=== PATIENT | male | born 1955 | race African-American/Black ===

== ENCOUNTER 2016-04-19 22:33 | Inpatient (IN) | payer OTHER ==
[~2016-04-19] VITALS: Ht 188 cm; Wt 77.1 kg
[~2016-04-19 22:33] MED LIST: ALLOPURINOL100 M1 ORAL; BACTRIM DS TAB1 EAC1 ORAL; BENAZEPRIL HCL10 MG ORAL; BENAZEPRIL HCL10 MG PO; BENAZEPRIL HCL40 MG ORAL; CATAPRES0.1 MG ORAL; CEPHALEXIN500 MG ORAL; CIPRO500 MG PO; CIPROFLOXACIN500 M2 ORAL; CIPROFLOXACIN750 MG ORAL; CLINDAMYCIN HC300 MG ORAL; CLOTRIMAZOLE15 GM TOPIC; COLACE250 MG ORAL; ECONAZOLE NITRA15 GM TOP; FLUCONAZOLE200 MG ORAL; GLIPIZIDE XL10 MG PO; GLIPIZIDE10 MG PO; GLIPIZIDE5 MG ORAL; GLUCOTROL10 MG PO; HUMALOG100 UNIT/4 SUBQ; HUMULIN N100 UNIT/1 SUBQ; HUMULIN R100 UNIT/1 SUBQ; IBUPROFEN600 MG ORAL; INDOCIN25 MG PO; KEFLEX500 MG ORAL; LANTUS SOL100 UNIT/1 SUBQ; LEVAQUIN500 MG ORAL; LEVEMIR FL100 UNIT/1 SUBQ; LOTENSIN10 MG PO; METHADONE HCL10 MG PO; MIRALAX17 G2 ORAL; MULTIVITAMINS1 EA13 ORAL; NORCO 10-325 T1 EACH PO; NORCO 5-325 TA1 EACH ORAL; NORCO 5-325 TA1 EACH PO; NOVOLIN N100 UNIT/1 SUBQ; PANTOPRAZOLE SO40 MG ORAL; TAMSULOSIN HCL0.4 MG ORAL; TYLENOL650 MG/20. ORAL; VALIUM10 MG PO; VICODIN 5-5001 EACH PO; ZOFRAN4 M1 ORAL
[2016-04-20] VITALS (7 sets, daily range): BP systolic 115–184; BP diastolic 70–106
[2016-04-20 00:31] LABS: BASOPHILS % (AUTO) 0.9 % (0.0-2.0); EOSINOPHILS % (AUTO) 1.8 % (0.0-3.0); MEAN CORPUSCULAR HEMOGLOBIN 25.1 PG (27.0-31.0); MEAN CORPUSCULAR HGB CONC 31.3 G/DL (32.0-36.0); MEAN CORPUSCULAR VOLUME 80 FL (80-99); MEAN PLATELET VOLUME 6.6 FL (6.5-10.1); MONOCYTES % (AUTO) 7.5 % (1.0-10.0); NEUTROPHILS % (AUTO) 61.8 % (45.0-75.0); PLATELET COUNT 289 K/UL (150-450); RED BLOOD COUNT 4.46 M/UL (4.70-6.10); RED CELL DISTRIBUTION WIDTH 15.4 % (11.6-14.8); WHITE BLOOD COUNT 8.2 K/UL (4.8-10.8)
[2016-04-20 00:32] LABS: APPEARANCE,URINE CLEAR; KETONES,URINE NEGATIVE (NEGATIVE); NITRITE,URINE NEGATIVE (NEGATIVE); PH,URINE 5 (4.5-8.0); PROTEIN,URINE 1+ (NEGATIVE); UROBILINOGEN,URINE NORMAL MG/DL (0.0-1.0)
[2016-04-20 00:45] LABS: ALANINE AMINOTRANSFERASE 34 U/L (3-41); ALBUMIN/GLOBULIN RATIO 0.5 (1.0-2.7); ANION GAP 11 (5-15); ASPARTATE AMINO TRANSFERASE 50 U/L (5-40); CALCIUM 9.1 mg/dL (8.6-10.2); CARBON DIOXIDE 30 mEQ/L (20-30); CHLORIDE 91 mEQ/L (98-107); CREATININE 1.1 mg/dL (0.7-1.2); GLOMERULAR FILTRATION RATE > 60 mL/min (>60); HEMOLYSIS 12; LIPASE 23 U/L (< 60); POTASSIUM 4.6 mEQ/L (3.4-4.9); SODIUM 132 mEQ/L (135-145); TOTAL PROTEIN 8.7 g/dL (6.6-8.7)
[2016-04-20 00:47] LABS: LEUKOCYTE ESTERASE ,URINE 2+ (NEGATIVE)
[2016-04-20 00:48] LABS: BACTERIA,URINE FEW /HPF; WBC,URINE 20-30 /HPF (0 - 0); YEAST,URINE FEW /HPF
[2016-04-20 00:49] LABS: INR 1.1 (0.9-1.1); PROTHROMBIN TIME 11.6 SEC (9.30-11.50)
[2016-04-20] MEDS ORDERED: cefTRIAXone 1 GM in NS 55 ML IVPB ONE (01:00)
[2016-04-20 01:06] LABS: TROPONIN I < 0.30 ng/mL (<=0.30)
--- NOTE | 2016-04-20 02:11 | Emergency Room Report ---
History of Present Illness General Chief Complaint: Generalized Weakness Source: Patient, Medical Record Present Illness HPI This is a 61-year-old male with a history COPD diabetes. He's been here multiple times for recurrent urinary tract infection and diabetes. Also has been to the surrounding hospital. He was brought in by bystander for being on the ground at the bus stop. He said that he went to eat and was on his way home when he fell. He claimed to be not homeless. Denies any fever or chills. Chest felt weak. No nausea no vomiting. Denies any chest pain. Nothing made it better nothing made it worse. Allergies: Coded Allergies: No Known Allergies (Unverified , 12/31/11) Patient History Past Medical History: see triage record, old chart reviewed, DM, HTN Past Surgical History: other Pertinent Family History: none Social History: Reports: smoking Immunizations: other Reviewed Nursing Documentation: PMH: Agreed, PSxH: Agreed Nursing Documentation-PMH Hx Cardiac Problems: Yes Hx Hypertension: Yes Hx Diabetes: Yes - neuropathy male urinary problems Hx Cancer: Yes Hx Gastrointestinal Problems: No Hx Neurological Problems: Yes Hx Numbness: Yes Hx Weakness: Yes Review of Systems Constitutional: Reports: malaise, weakness Eye: Denies: blurred vision, eye pain ENT: Denies: ear pain, nose congestion, throat swelling Respiratory: Denies: cough, shortness of breath Cardiovascular: Denies: chest pain, palpitations Gastrointestinal: Denies: abdominal pain, diarrhea, nausea, vomiting Musculoskeletal: Denies: back pain, joint pain Skin: Denies: rash Neurological: Denies: headache, numbness Endocrine: Denies: increased thirst, increased urine Hematologic/Lymphatic: Denies: easy bruising All Other Systems: negative except mentioned in HPI Physical Exam Vital Signs Date Time Temp Pulse Resp B/P Pulse Ox O2 Delivery O2 Flow Rate FiO2 04/19/16 23:17 98.4 95 18 164/90 100 Room Air vitals showed hypertension Sp02 EP Interpretation: reviewed, normal General Appearance: no apparent distress, alert, cachetic, Chronically Ill Head: normocephalic, atraumatic Eyes: bilateral eye EOMI, bilateral eye PERRL ENT: hearing grossly normal, normal pharynx Neck: full range of motion, supple, no meningismus Respiratory: chest non-tender, lungs clear, normal breath sounds Cardiovascular #1: regular rate, rhythm, no murmur Gastrointestinal: normal bowel sounds, non tender, no mass, no organomegaly, no bruit, non-distended Musculoskeletal: back normal, normal range of motion Neurologic: alert, oriented x3 Psychiatric: mood/affect normal Skin: warm/dry Medical Decision Making Diagnostic Impression: Primary Impression: FTT (failure to thrive) in adult Additional Impressions: Hyperglycemia due to type 2 diabetes mellitus Qualified Codes: E11.65 - Type 2 diabetes mellitus with hyperglycemia UTI (urinary tract infection) Qualified Codes: N30.00 - Acute cystitis without hematuria Proteinuria Hypertension Qualified Codes: I10 - Essential (primary) hypertension Anemia in chronic illness ER Course Patient presents with weakness and has UTI and uncontrolled diabetes. He looks much worse than the last time I saw him. He losing a lot of weight. Worse him for neoplastic process. He may need longterm placement since he can't take care of himself at home. No evidence of sepsis or DKA. No evidence of ACS. Laboratory Tests Test 04/20/16 00:04 04/20/16 00:21 White Blood Count 8.2 K/UL (4.8-10.8) Red Blood Count 4.46 M/UL (4.70-6.10) L Hemoglobin 11.2 G/DL (14.2-18.0) L Hematocrit 35.7 % (42.0-52.0) L Mean Corpuscular Volume 80 FL (80-99) Mean Corpuscular Hemoglobin 25.1 PG (27.0-31.0) L Mean Corpuscular Hemoglobin Concent 31.3 G/DL (32.0-36.0) L Red Cell Distribution Width 15.4 % (11.6-14.8) H Platelet Count 289 K/UL (150-450) Mean Platelet Volume 6.6 FL (6.5-10.1) Neutrophils (%) (Auto) 61.8 % (45.0-75.0) Lymphocytes (%) (Auto) 28.0 % (20.0-45.0) Monocytes (%) (Auto) 7.5 % (1.0-10.0) Eosinophils (%) (Auto) 1.8 % (0.0-3.0) Basophils (%) (Auto) 0.9 % (0.0-2.0) Prothrombin Time 11.6 SEC (9.30-11.50) H Prothromb Time International Ratio 1.1 (0.9-1.1) Activated Partial Thromboplast Time 26 SEC (23-33) Sodium Level 132 mEQ/L (135-145) L Potassium Level 4.6 mEQ/L (3.4-4.9) Chloride Level 91 mEQ/L (98-107) L Carbon Dioxide Level 30 mEQ/L (20-30) Anion Gap 11 (5-15) Blood Urea Nitrogen 13 mg/dL (7-23) Creatinine 1.1 mg/dL (0.7-1.2) Estimat Glomerular Filtration Rate > 60 mL/min (>60) Glucose Level 531 mg/dL (74-106) *H Calcium Level 9.1 mg/dL (8.6-10.2) Total Bilirubin 0.4 mg/dL (0.0-1.2) Aspartate Amino Transf (AST/SGOT) 50 U/L (5-40) H Alanine Aminotransferase (ALT/SGPT) 34 U/L (3-41) Alkaline Phosphatase 163 U/L (40-129) H Troponin I < 0.30 ng/mL (<=0.30) Total Protein 8.7 g/dL (6.6-8.7) Albumin 3.2 g/dL (3.5-5.2) L Globulin 5.5 g/dL Albumin/Globulin Ratio 0.5 (1.0-2.7) L Lipase 23 U/L (< 60) Urine Color Pale yellow Urine Appearance Clear Urine pH 5 (4.5-8.0) Urine Specific [place] 1.010 (1.005-1.035) Urine Protein 1+ (NEGATIVE) H Urine Glucose (UA) 4+ (NEGATIVE) H Urine Ketones Negative (NEGATIVE) Urine Occult Blood 2+ (NEGATIVE) H Urine Nitrite Negative (NEGATIVE) Urine Bilirubin Negative (NEGATIVE) Urine Urobilinogen Normal MG/DL (0.0-1.0) Urine Leukocyte Esterase 2+ (NEGATIVE) H Urine RBC 2-4 /HPF (0 - 0) H Urine WBC 20-30 /HPF (0 - 0) H Urine Squamous Epithelial Cells None /LPF (NONE/OCC) Urine Bacteria Few /HPF (NONE) Urine Yeast Few /HPF (NONE) H Lab Results Impression labs showed elevated glucose Rhythm Strip Diag. Results EP Interpretation: yes Rate: 80 Rhythm: NSR, no PVC's, no ectopy Chest X-Ray Diagnostic Results EP Interpretation: Yes Findings: no consolidation, no effusion, no pneumothorax, no acute cardiopulmonary disease, other - hyperinflation Number of Views: 1 Last Vital Signs Date Time Temp Pulse Resp B/P Pulse Ox O2 Delivery O2 Flow Rate FiO2 04/19/16 23:17 98.4 95 18 164/90 100 Room Air Status: improved Disposition: ADMITTED INPATIENT Condition: Serious Referrals: [facility],REFERRING (PCP) ESPERANZA KEMP M.D. Apr 20, 2016 02:11
[2016-04-20] MEDS ORDERED: UNOBMED (02:51)
[2016-04-20] MEDS ORDERED: Miralax 17gm pkt ORAL PRN (07:15)
[2016-04-20] MEDS ORDERED: Ketorolac 30mg Inj IV PRN (07:15)
[2016-04-20] MEDS ORDERED: Mylanta II UD 30ml ORAL PRN (07:15)
[2016-04-20] MEDS ORDERED: Nitroglycerin Subl 0.4mg tab (Bottle Of 25) SL PRN (07:15)
[2016-04-20] MEDS ORDERED: DuoNeb 0.5-3(2.5)mg/3ml neb HHN PRN (07:15)
[2016-04-20] MEDS ORDERED: Morphine Sulfate 2mg/ml Inj IM PRN (08:00)
[2016-04-20] MEDS ORDERED: Norco 5mg/325mg tab ORAL PRN (08:00)
[2016-04-20] MEDS: Miralax 17gm pkt ORAL SCH (09:00)
[2016-04-20] MEDS ORDERED: cefTRIAXone 1 GM in D5W 55 ML IVPB SCH (10:00)
--- NOTE | 2016-04-20 10:00 | Diagnostic Imaging Report ---
Indication: Altered mental status Technique: Contiguous 5 mm thick transaxial imaging of the head obtained in a Siemens Sensation [address] scanner. Soft tissue and bone windows generated. Total Dose length Product (DLP): [address] Dose Index Volume (CTDIvol): 70.38 mGy Comparison: 09/12/2007 Findings: There is mild prominence of the ventricles, basal cisterns, and cerebral sulci consistent with atrophy. Mild, nonspecific, white matter hypoattenuation is noted throughout the brain consistent with chronic small vessel disease. There is no midline shift, edema, acute hemorrhage, mass effect, or abnormal extra-axial fluid collections. Bones and extra osseous soft tissues are unremarkable. Impression: No acute intracranial bleed, mass effect or edema. Mild atrophy of the brain. Nonspecific white matter hypoattenuation probably due to chronic small vessel disease. [facility] has communicated the preliminary results to the Emergency Department. Their findings are largely concordant with this report. The CT scanner at [facility] is accredited by the [employer] and the scans are performed using protocols designed to limit radiation exposure to as low as reasonably achievable to attain images of sufficient resolution adequate for diagnostic evaluation.
[2016-04-20] MEDS: Allopurinol 100mg Tab ORAL SCH (10:05)
[2016-04-20] MEDS: Benazepril 10mg tab ORAL SCH (10:10)
[2016-04-20] MEDS: Heparin 5000 units/ml inj SUBQ SCH ×2 (10:11→20:45)
[2016-04-20] MEDS: Morphine Sulfate 2mg/ml Inj IVP PRN ×2 (10:12→17:08)
[2016-04-20] MEDS ORDERED: NovoLOG Insulin Flexpen SUBQ SCH (11:30)
--- NOTE | 2016-04-20 11:34 | Diagnostic Imaging Report ---
Indication: Altered mental status and chest pain Comparison: 09/25/15 A single view chest radiograph was obtained. Findings: Cardiomediastinal appearance is within normal limits for age. Pulmonary vascularity is appropriate. The diaphragmatic contour is smooth and costophrenic angles are sharp. No pleural effusions are identified. The bones are unremarkable. Impression: No acute findings
--- NOTE | 2016-04-20 11:49 | History & Physical ---
History and Physical History & Physicial Dictated for Int Med-Dr Martinez no. [id number]. LAZARO VENEGAS Apr 20, 2016 11:49
[2016-04-20] MEDS: NovoLOG Insulin Flexpen SUBQ SCH ×3 (12:49→20:44)
[2016-04-20] MEDS: GlipiZIDE 5mg tab ORAL SCH (17:07)
--- NOTE | 2016-04-20 17:21 | Consultation ---
History of Present Illness General Date patient seen: Apr 20, 2016 Chief Complaint: Generalized Weakness Referring physician: Dr Martinez Reason for Consultation: Inpatient management Present Illness HPI 61-year-old male with a history COPD diabetes was brought in by bystander for being on the ground at the bus stop. He said that he went to eat and was on his way home when he fell. His blood sugars were very high, therefore he is admitted for uncontrolled DM. Allergies: Coded Allergies: No Known Allergies (Unverified , 12/31/11) Medication History Scheduled Allopurinol* (Allopurinol*), 100 MG ORAL DAILY, (Reported) Benazepril Hcl* (Benazepril Hcl*), 10 MG ORAL DAILY, (Reported) Cephalexin* (Keflex*), 500 MG ORAL Q6H Clonidine Hcl* (Catapres*), 0.1 MG ORAL EVERY 6 HOURS, (Reported) Docusate Sodium (Docusate Sodium), 250 MG ORAL DAILY, (Reported) Fluconazole (Fluconazole), 200 MG ORAL DAILY, (Reported) Glipizide* (Glipizide*), 10 MG ORAL BIDAC, (Reported) Insulin Detemir (Levemir Flexpen), 22 UNITS SUBQ Q12HR Insulin Detemir (Levemir Flexpen), 22 SUBQ EVERY 12 HOURS, (Reported) Insulin Lispro (Humalog), 5 SUBQ BEFORE MEALS, (Reported) Methadone Hcl* (Methadone*), 20 MG PO DAILY, (Reported) Multivitamin with Minerals (Multivitamins with Minerals), 1 TAB ORAL DAILY, ( Reported) Nph, Human Insulin Isophane (Humulin N), 0 SUBQ BEFORE MEALS, (Reported) Pantoprazole* (Pantoprazole*), 40 MG ORAL DAILY, (Reported) Polyethylene Glycol 3350* (Miralax*), 17 GM ORAL DAILY, (Reported) Tamsulosin Hcl (Tamsulosin Hcl*), 0.4 MG ORAL BEDTIME, (Reported) Trimethoprim/Sulfamethoxazole 160/800* (Bactrim Ds Tablet*), 1 TAB ORAL TWICE A DAY, (Reported) Scheduled PRN Acetaminophen (Acetaminophen), 650 MG ORAL Q6H PRN for Prn Headache/Temp > 101, (Reported) Hydrocodone Bit/Acetaminophen 5-325* ([place] 5-325*), 1 TAB ORAL Q6H PRN for For Pain, (Reported) Ondansetron (Zofran), 4 MG ORAL Q6H PRN for Nausea & Vomiting, (Reported) Miscellaneous Medications Unable to Obtain Medications (Unable To Obtain Meds), (Reported) Patient History Healthcare decision maker Resuscitation status Full Code Advanced Directive on File Past Medical/Surgical History Past Medical/Surgical History: (1) Hypertension (2) Anemia in chronic illness (3) Hepatitis C (4) Diabetes mellitus type 2 (5) BPH (benign prostatic hypertrophy) (6) Gout Review of Systems All Other Systems: negative except mentioned in HPI Physical Exam General Appearance: cachetic Lines, tubes and drains: peripheral HEENT: normocephalic, atraumatic Neck: non-tender, normal alignment Respiratory/Chest: chest wall non-tender, lungs clear Cardiovascular/Chest: normal peripheral pulses, normal rate Abdomen: non tender, soft Genitourinary/Rectal: normal genital exam Extremities: normal range of motion Skin Exam: normal pigmentation Last 24 Hour Vital Signs Date Time Temp Pulse Resp B/P Pulse Ox O2 Delivery O2 Flow Rate FiO2 04/20/16 17:07 146/78 04/20/16 16:00 98.2 68 20 142/82 99 Room Air 04/20/16 12:48 153/98 04/20/16 11:58 97.7 71 21 153/98 99 Room Air 04/20/16 10:10 158/89 04/20/16 08:00 97.2 78 21 166/96 98 Room Air 04/20/16 06:22 97.7 82 18 173/95 99 Room Air 04/20/16 03:15 97.7 76 18 184/106 99 Room Air 04/20/16 02:51 98.4 73 12 142/80 100 Room Air 04/20/16 02:34 98.4 73 12 142/80 100 Room Air 04/19/16 23:17 98.4 95 18 164/90 100 Room Air Intake and Output 04/19/16 04/20/16 19:00 07:00 Intake Total 240 ml Balance 240 ml Intake Oral 240 ml # Voids 2 Laboratory Tests Test 04/20/16 00:04 04/20/16 00:21 White Blood Count 8.2 K/UL (4.8-10.8) Red Blood Count 4.46 M/UL (4.70-6.10) L Hemoglobin 11.2 G/DL (14.2-18.0) L Hematocrit 35.7 % (42.0-52.0) L Mean Corpuscular Volume 80 FL (80-99) Mean Corpuscular Hemoglobin 25.1 PG (27.0-31.0) L Mean Corpuscular Hemoglobin Concent 31.3 G/DL (32.0-36.0) L Red Cell Distribution Width 15.4 % (11.6-14.8) H Platelet Count 289 K/UL (150-450) Mean Platelet Volume 6.6 FL (6.5-10.1) Neutrophils (%) (Auto) 61.8 % (45.0-75.0) Lymphocytes (%) (Auto) 28.0 % (20.0-45.0) Monocytes (%) (Auto) 7.5 % (1.0-10.0) Eosinophils (%) (Auto) 1.8 % (0.0-3.0) Basophils (%) (Auto) 0.9 % (0.0-2.0) Prothrombin Time 11.6 SEC (9.30-11.50) H Prothromb Time International Ratio 1.1 (0.9-1.1) Activated Partial Thromboplast Time 26 SEC (23-33) Sodium Level 132 mEQ/L (135-145) L Potassium Level 4.6 mEQ/L (3.4-4.9) Chloride Level 91 mEQ/L (98-107) L Carbon Dioxide Level 30 mEQ/L (20-30) Anion Gap 11 (5-15) Blood Urea Nitrogen 13 mg/dL (7-23) Creatinine 1.1 mg/dL (0.7-1.2) Estimat Glomerular Filtration Rate > 60 mL/min (>60) Glucose Level 531 mg/dL (74-106) *H Calcium Level 9.1 mg/dL (8.6-10.2) Total Bilirubin 0.4 mg/dL (0.0-1.2) Aspartate Amino Transf (AST/SGOT) 50 U/L (5-40) H Alanine Aminotransferase (ALT/SGPT) 34 U/L (3-41) Alkaline Phosphatase 163 U/L (40-129) H Troponin I < 0.30 ng/mL (<=0.30) Total Protein 8.7 g/dL (6.6-8.7) Albumin 3.2 g/dL (3.5-5.2) L Globulin 5.5 g/dL Albumin/Globulin Ratio 0.5 (1.0-2.7) L Lipase 23 U/L (< 60) Urine Color Pale yellow Urine Appearance Clear Urine pH 5 (4.5-8.0) Urine Specific [place] 1.010 (1.005-1.035) Urine Protein 1+ (NEGATIVE) H Urine Glucose (UA) 4+ (NEGATIVE) H Urine Ketones Negative (NEGATIVE) Urine Occult Blood 2+ (NEGATIVE) H Urine Nitrite Negative (NEGATIVE) Urine Bilirubin Negative (NEGATIVE) Urine Urobilinogen Normal MG/DL (0.0-1.0) Urine Leukocyte Esterase 2+ (NEGATIVE) H Urine RBC 2-4 /HPF (0 - 0) H Urine WBC 20-30 /HPF (0 - 0) H Urine Squamous Epithelial Cells None /LPF (NONE/OCC) Urine Bacteria Few /HPF (NONE) Urine Yeast Few /HPF (NONE) H Height (Feet): 6 Height (Inches): 2.00 Weight (Pounds): 170 Medications Current Medications Medications (Trade) Dose Ordered Sig/Gabriel Route PRN Reason Start Time Stop Time Status Last Admin Dose Admin Acetaminophen (Tylenol) 650 mg Q4H PRN ORAL fever 04/20/16 07:15 05/20/16 07:14 Acetaminophen/ Hydrocodone Bitart ([place] 5/325) 1 tab Q6H PRN ORAL Moderate Pain (Pain Scale 4-6) 04/20/16 07:15 04/27/16 07:14 Al Hydroxide/Mg Hydroxide (Mylanta II) 30 ml Q6H PRN ORAL dyspepsia 04/20/16 07:15 05/20/16 07:14 Albuterol/ Ipratropium (DuoNeb 0.5-3(2.5)mg/3ml) 3 ml Q4HRT PRN HHN Shortness of Breath 04/20/16 07:15 04/25/16 07:14 Allopurinol (Zyloprim) 100 mg DAILY ORAL 04/20/16 09:00 05/20/16 08:59 04/20/16 10:05 Benazepril HCl (Lotensin) 10 mg DAILY ORAL 04/20/16 09:00 05/20/16 08:59 04/20/16 10:10 Ceftriaxone Sodium/Dextrose (Rocephin/D5W) 55 ml @ 110 mls/hr Q24H IVPB 04/21/16 01:00 04/28/16 00:59 Clonidine HCl (Catapres) 0.1 mg EVERY 6 HOURS ORAL 04/20/16 12:00 05/20/16 11:59 04/20/16 17:07 Clonidine HCl (Catapres) 0.1 mg Q4H PRN ORAL sbp more than 160 04/20/16 07:15 05/20/16 07:14 Dextrose (Dextrose 50%) STAT PRN IV Hypoglycemia 04/20/16 07:15 05/20/16 07:14 Glipizide 10 mg 10 mg BIAC ORAL 04/20/16 16:30 05/20/16 16:29 04/20/16 17:07 Heparin Sodium (Porcine) (Heparin 5000 units/ml) 5,000 units EVERY 12 HOURS SUBQ 04/20/16 09:00 05/20/16 08:59 04/20/16 10:11 Insulin Aspart (NovoLOG) BEFORE MEALS AND HS SUBQ 04/20/16 11:30 05/20/16 11:29 04/20/16 17:06 Ketorolac Tromethamine (Toradol 30mg) 30 mg EVERY 6 HOURS PRN IV moderate pain 4-6 04/20/16 07:15 04/25/16 07:14 Morphine Sulfate (Morphine Sulfate) 2 mg Q4H PRN IVP severe pain 7-10 04/20/16 07:15 04/27/16 07:14 04/20/16 17:08 Nitroglycerin (Ntg) 0.4 mg Q5M X 3 DOSES PRN SL Prn Chest Pain 04/20/16 07:15 05/20/16 07:14 Ondansetron HCl (Zofran) 4 mg Q6H PRN IVP Nausea & Vomiting 04/20/16 07:15 05/20/16 07:14 Ondansetron HCl (Zofran) 4 mg Q6H PRN ORAL Nausea & Vomiting 04/20/16 07:15 05/20/16 07:14 Pantoprazole (Protonix) 40 mg ACBREAKFAST ORAL 04/21/16 06:30 05/20/16 08:59 Polyethylene Glycol (Miralax) 17 gm DAILY ORAL 04/20/16 09:00 05/20/16 08:59 Polyethylene Glycol (Miralax) 17 gm HSPRN PRN ORAL Constipation 04/20/16 07:15 05/20/16 07:14 Sodium Chloride (Sodium Chloride 1000ml bag) 1,000 ml @ 100 mls/hr Q10H IVLG 04/20/16 07:52 05/20/16 07:51 04/20/16 10:00 Tamsulosin HCl 0.4 mg 0.4 mg BEDTIME ORAL 04/20/16 21:00 05/20/16 20:59 Temazepam (Restoril) 15 mg HSPRN PRN ORAL Insomnia 04/20/16 07:15 04/27/16 07:14 Assessment/Plan Problem List: (1) Uncontrolled diabetes mellitus ICD Codes: E11.65 - Type 2 diabetes mellitus with hyperglycemia SNOMED: 019410610 Qualifiers: (2) Hepatitis C ICD Codes: B19.20 - Unspecified viral hepatitis C without hepatic coma SNOMED: 71835852 Qualifiers: Qualified Codes: B18.2 - Chronic viral hepatitis C (3) Hypertension ICD Codes: I10 - Essential (primary) hypertension SNOMED: 37719432 Qualifiers: Qualified Codes: I10 - Essential (primary) hypertension (4) Gout ICD Codes: M10.9 - Gout, unspecified SNOMED: 52995478 Qualifiers: (5) BPH (benign prostatic hypertrophy) ICD Codes: N40.0 - Enlarged prostate without lower urinary tract symptoms SNOMED: 003111162, 099876000 Qualifiers: (6) FTT (failure to thrive) in adult ICD Codes: R62.7 - Adult failure to thrive SNOMED: 536527624 (7) Anemia in chronic illness ICD Codes: D63.8 - Anemia in other chronic diseases classified elsewhere SNOMED: 061126912 Assessment/Plan iv fluids sliding scale endo consult check hem A1c diabetes education pt/ot SILVA PACE Apr 20, 2016 17:21
--- NOTE | 2016-04-20 19:38 | History and Physical Report ---
DATE OF ADMISSION: 04/20/2016 CHIEF COMPLAINT: The patient is a 61-year-old male who presents with complaint of increased frequency of urination. HISTORY OF PRESENT ILLNESS: The patient is very somnolent during the interview. The patient keeps falling asleep. The patient states he came to [place] emergency room to change his Dorsey catheter. The patient's Dorsey catheter has been out for a few months. The patient previously had benign prostatic hypertrophy with outlet obstruction. The patient states his Dorsey was removed approximately a month ago. The patient was voiding normally. The patient began to experience increased frequency of urination approximately two days prior to admission. According to the emergency room note, the patient was brought in by a bystander after the patient was found sleeping at the bus stop. The patient has a history of opiate dependence and was previously on methadone. The patient is admitted for increased frequency of urination to rule out urinary tract infection and probable pyelonephritis. PAST MEDICAL HISTORY: Significant for: 1. Type 2 diabetes. 2. Diabetic nephropathy. 3. Benign prostatic hypertrophy. 4. Urine outlet obstruction. 5. Hypertension. PAST SURGICAL HISTORY: Significant for cholecystectomy. CURRENT MEDICATIONS: 1. Allopurinol 100 mg one tablet p.o. daily. 2. Benazepril 10 mg p.o. daily. 3. Clonidine 0.1 mg one tablet p.o. q.6 h. p.r.n. 4. Glipizide 10 mg one tablet by mouth twice daily. 5. Levemir 22 units subcutaneously twice daily. 6. Methadone 20 mg p.o. daily. 7. NPH insulin subcutaneously before meals. 8. Protonix 40 mg one tablet p.o. daily. 9. Flomax 0.4 mg p.o. daily. ALLERGIES: No known drug allergies. SOCIAL HISTORY: The patient apparently is homeless. The patient denies tobacco or alcohol use. REVIEW OF SYSTEMS: Constitutional: The patient denies weight loss or weight gain. The patient denies fevers or chills. HEENT: The patient denies ear or throat pain. Cardiovascular: The patient denies palpitations or chest pain. Chest: The patient denies wheezes or shortness of breath. Abdomen: The patient denies nausea, vomiting, diarrhea, or constipation. Genitourinary: The patient complains of increased frequency of urination as above. Neuromuscular: The patient denies seizures or generalized weakness. PHYSICAL EXAMINATION: VITAL SIGNS: Temperature 98.4, respirations 12, blood pressure 142/80, and pulse 73. GENERAL: The patient is thin-appearing male, in no apparent distress. The patient is disheveled. HEENT: Eyes, pupils are equal and responsive to light and accommodation. Extraocular movements intact. NECK: Supple without lymphadenopathy. CHEST: Lungs are clear to auscultation bilaterally without wheezes or rales. CARDIOVASCULAR: Regular rate. S1 and S2. No murmurs, rubs, or gallops. ABDOMEN: Soft, nontender, and nondistended. Positive bowel sounds. No evidence of hepatosplenomegaly. Currently, no rebound or guarding. EXTREMITIES: There is no clubbing, cyanosis, or edema. RECTAL: Refused. GENITAL: Refused. NEUROLOGICAL: Cranial nerves II through XII are grossly intact without focal deficits. Motor strength is 5/5 bilaterally. Deep tendon reflexes are 2+ plantar. LABORATORY STUDIES: WBC 8.2, hemoglobin 11.2, hematocrit 35.7, and platelets 289,000. Sodium 132, potassium 4.6, chloride 91, CO2 30, BUN 13, creatinine 1.1, and glucose elevated at 531. Troponin less than 0.3. Liver function tests mildly elevated with an AST of 50 and alkaline phosphatase of 163. Urinalysis showed 2+ occult blood, 4+ glucose, 2+ leukocyte esterase, and 20 to 30 WBCs. ASSESSMENT: This is a 61-year-old male with: 1. Urinary tract infection. 2. Increased frequency of urination. 3. Uncontrolled diabetes. 4. Diabetic nephropathy. 5. Hyperglycemia. 6. Benign prostatic hypertrophy. 7. Urine outlet obstruction. 8. Hypertension. TREATMENT: 1. Urinary tract infection. The patient has been started empirically on ceftriaxone. Urine culture is pending. A Urology consultation obtained with Dr. Shiv Joyce. 2. Uncontrolled diabetes. Continue Levemir and NovoLog sliding scale as above. An Endocrinology consultation was obtained with Dr. Elmer Melo. 3. Diabetic nephropathy. 4. Hyperglycemia. As above, an Endocrinology consultation obtained with Dr. Elmer Melo. 5. Benign prostatic hypertrophy/urine outlet obstruction. The patient previously had an indwelling Dorsey catheter. This has been removed in the interim. As above, Urology consultation obtained with Dr. Shiv Joyce. 6. Hypertension. The patient is currently off antihypertensive medications. Continue benazepril 10 mg one tablet p.o. daily. Cj Luevano M.D. DR: BIANCA JOB#: [id number] CC:
[2016-04-20] MEDS: Tamsulosin 0.4mg cap ORAL SCH (20:45)
--- NOTE | 2016-04-20 22:48 | Consultation ---
DATE OF CONSULTATION: 04/20/2016 CONSULTING PHYSICIAN: Shiv Joyce M.D. REFERRING PHYSICIAN: Cj Luevano M.D. REASON FOR CONSULTATION: Follow up of BPH. HISTORY OF PRESENT ILLNESS: This is a 61-year-old, gentleman who is no known to me from previous evaluations. He has a history of BPH. He has a history of urinary retention. He used to have a chronic Dorsey. He was admitted to the hospital after he [place] at [place]. Apparently, he has uncontrolled diabetes. He currently does not have a Dorsey catheter. He has voiding. PAST MEDICAL HISTORY: Significant for above including diabetes, diabetic neuropathy, hypertension, and BPH history. PAST SURGICAL HISTORY: He had a cholecystectomy. CURRENT MEDICATIONS: In the hospital was reviewed. ALLERGIES: No known drug allergies. SOCIAL HISTORY: He does have a history of drug use. PHYSICAL EXAMINATION: GENERAL: No acute distress. VITAL SIGNS: Temperature is 98.2 and blood pressure 140/82. ABDOMEN: Soft. No CVA tenderness. LABORATORY DATA: UA, 2 to 4 RBCs, 20 to 30 WBCs, and few yeasts. White count 8.2, hemoglobin 11.2, and platelets 289,000. BUN 13 and creatinine 1.1. There is no recent urine culture. DIAGNOSTIC IMAGING STUDIES: The patient had an abdominal ultrasound back in June in 2015. At that time, the kidneys were reported to be normal. IMPRESSION: 1. Benign prostatic hypertrophy history. 2. History of lower urinary tract symptoms. 3. Probable neurogenic bladder. 4. Hematuria. 5. Pyuria. 6. Proteinuria. PLAN AND DISCUSSION: The patient is to continue with Flomax as ordered. He also is on antibiotics Rocephin. He will be monitored clinically. His renal function stable. Other recommendation forthcoming. Thank you, Dr. Luevano, for asking me to see this patient in consultation. Shiv Joyce M.D. DR: GABRIELA JOB#: [id number] CC:
[2016-04-21] VITALS (7 sets, daily range): BP systolic 124–151; BP diastolic 79–100
[2016-04-21] MEDS: Morphine Sulfate 2mg/ml Inj IVP PRN ×4 (00:26→21:14)
[2016-04-21] MEDS: cefTRIAXone 1 GM in D5W 55 ML IVPB SCH (01:10)
[2016-04-21] MEDS: GlipiZIDE 5mg tab ORAL SCH ×2 (06:07→16:45)
[2016-04-21] MEDS: NovoLOG Insulin Flexpen SUBQ SCH ×4 (06:11→21:16)
[2016-04-21 07:11] LABS: BASOPHILS % (AUTO) 0.7 % (0.0-2.0); EOSINOPHILS % (AUTO) 1.6 % (0.0-3.0); LYMPHOCYTES % (AUTO) 37.9 % (20.0-45.0); MEAN CORPUSCULAR HEMOGLOBIN 25.5 PG (27.0-31.0); MEAN CORPUSCULAR HGB CONC 31.5 G/DL (32.0-36.0); MEAN CORPUSCULAR VOLUME 81 FL (80-99); MEAN PLATELET VOLUME 6.6 FL (6.5-10.1); MONOCYTES % (AUTO) 6.5 % (1.0-10.0); NEUTROPHILS % (AUTO) 53.4 % (45.0-75.0); PLATELET COUNT 199 K/UL (150-450); RED BLOOD COUNT 4.37 M/UL (4.70-6.10); RED CELL DISTRIBUTION WIDTH 15.6 % (11.6-14.8); WHITE BLOOD COUNT 5.7 K/UL (4.8-10.8)
[2016-04-21 07:20] LABS: MAGNESIUM 1.6 mg/dL (1.7-2.5); PHOSPHORUS 2.5 mg/dL (2.5-4.8)
[2016-04-21 07:26] LABS: ALANINE AMINOTRANSFERASE 26 U/L (3-41); ALBUMIN/GLOBULIN RATIO 0.5 (1.0-2.7); ANION GAP 11 (5-15); ASPARTATE AMINO TRANSFERASE 40 U/L (5-40); CALCIUM 8.2 mg/dL (8.6-10.2); CARBON DIOXIDE 26 mEQ/L (20-30); CHLORIDE 98 mEQ/L (98-107); CHOLESTEROL 86 mg/dL (< 200); CHOLESTEROL/HDL RATIO 1.8 (3.3-4.4); CREATININE 0.9 mg/dL (0.7-1.2); GLOMERULAR FILTRATION RATE > 60 mL/min (>60); HEMOLYSIS 1; LDL CHOLESTEROL (CALC.) 23 mg/dL (60-99); POTASSIUM 4.2 mEQ/L (3.4-4.9); SODIUM 135 mEQ/L (135-145); TOTAL PROTEIN 7.2 g/dL (6.6-8.7)
[2016-04-21 07:32] LABS: THYROID STIMULATING HORMONE 0.519 uIU/mL (0.300-4.500)
[2016-04-21 07:56] LABS: HEMOGLOBIN A1C 12.7 % (< 6.0)
[2016-04-21] MEDS: Miralax 17gm pkt ORAL SCH (09:00)
--- NOTE | 2016-04-21 09:23 | Urology Progress Note ---
Assessment/Plan Assessment/Plan 1. Benign prostatic hypertrophy history. 2. History of lower urinary tract symptoms. 3. Probable neurogenic bladder. 4. Hematuria. 5. Pyuria. 6. Proteinuria. cont with flomax abx f/u on urine cx renal fxn stable Subjective Allergies: Coded Allergies: No Known Allergies (Unverified , 12/31/11) Subjective voiding, condom cath Objective Last 24 Hour Vital Signs Date Time Temp Pulse Resp B/P Pulse Ox O2 Delivery O2 Flow Rate FiO2 04/21/16 06:08 151/94 04/21/16 04:00 97.2 63 21 151/94 98 Room Air 04/21/16 00:26 140/100 04/21/16 00:06 98.2 67 19 140/100 100 Room Air 04/20/16 19:00 97.3 68 20 115/70 98 Room Air 04/20/16 17:07 146/78 04/20/16 16:00 98.2 68 20 142/82 99 Room Air 04/20/16 12:48 153/98 04/20/16 11:58 97.7 71 21 153/98 99 Room Air 04/20/16 10:10 158/89 Intake and Output 04/20/16 04/21/16 19:00 07:00 Intake Total 760 ml 1230 ml Output Total 315 ml 1400 ml Balance 445 ml -170 ml Intake Oral 360 ml 120 ml IV Total 400 ml 1110 ml Output Urine Total 315 ml 1400 ml # Bowel Movements 1 Current Medications Medications (Trade) Dose Ordered Sig/Gabriel Route PRN Reason Start Time Stop Time Status Last Admin Dose Admin Acetaminophen (Tylenol) 650 mg Q4H PRN ORAL fever 04/20/16 07:15 05/20/16 07:14 Acetaminophen/ Hydrocodone Bitart ([place] 5/325) 1 tab Q6H PRN ORAL Moderate Pain (Pain Scale 4-6) 04/20/16 07:15 04/27/16 07:14 Al Hydroxide/Mg Hydroxide (Mylanta II) 30 ml Q6H PRN ORAL dyspepsia 04/20/16 07:15 05/20/16 07:14 Albuterol/ Ipratropium (DuoNeb 0.5-3(2.5)mg/3ml) 3 ml Q4HRT PRN HHN Shortness of Breath 04/20/16 07:15 04/25/16 07:14 Allopurinol (Zyloprim) 100 mg DAILY ORAL 04/20/16 09:00 05/20/16 08:59 04/20/16 10:05 Benazepril HCl (Lotensin) 10 mg DAILY ORAL 04/20/16 09:00 05/20/16 08:59 04/20/16 10:10 Ceftriaxone Sodium/Dextrose (Rocephin/D5W) 55 ml @ 110 mls/hr Q24H IVPB 04/21/16 01:00 04/28/16 00:59 04/21/16 01:10 Clonidine HCl (Catapres) 0.1 mg EVERY 6 HOURS ORAL 04/20/16 12:00 05/20/16 11:59 04/21/16 06:08 Clonidine HCl (Catapres) 0.1 mg Q4H PRN ORAL sbp more than 160 04/20/16 07:15 05/20/16 07:14 Dextrose (Dextrose 50%) STAT PRN IV Hypoglycemia 04/20/16 07:15 05/20/16 07:14 Glipizide 10 mg 10 mg BIAC ORAL 04/20/16 16:30 05/20/16 16:29 04/21/16 06:07 Heparin Sodium (Porcine) (Heparin 5000 units/ml) 5,000 units EVERY 12 HOURS SUBQ 04/20/16 09:00 05/20/16 08:59 04/20/16 20:45 Insulin Aspart (NovoLOG) BEFORE MEALS AND HS SUBQ 04/20/16 11:30 05/20/16 11:29 04/21/16 06:11 Ketorolac Tromethamine (Toradol 30mg) 30 mg EVERY 6 HOURS PRN IV moderate pain 4-6 04/20/16 07:15 04/25/16 07:14 Morphine Sulfate (Morphine Sulfate) 2 mg Q4H PRN IVP severe pain 7-10 04/20/16 07:15 04/27/16 07:14 04/21/16 06:46 Nitroglycerin (Ntg) 0.4 mg Q5M X 3 DOSES PRN SL Prn Chest Pain 04/20/16 07:15 05/20/16 07:14 Ondansetron HCl (Zofran) 4 mg Q6H PRN IVP Nausea & Vomiting 04/20/16 07:15 05/20/16 07:14 Ondansetron HCl (Zofran) 4 mg Q6H PRN ORAL Nausea & Vomiting 04/20/16 07:15 05/20/16 07:14 Pantoprazole (Protonix) 40 mg ACBREAKFAST ORAL 04/21/16 06:30 05/20/16 08:59 04/21/16 06:14 Polyethylene Glycol (Miralax) 17 gm DAILY ORAL 04/20/16 09:00 05/20/16 08:59 Polyethylene Glycol (Miralax) 17 gm HSPRN PRN ORAL Constipation 04/20/16 07:15 05/20/16 07:14 Sodium Chloride (Sodium Chloride 1000ml bag) 1,000 ml @ 100 mls/hr Q10H IVLG 04/20/16 07:52 05/20/16 07:51 04/21/16 01:16 Tamsulosin HCl 0.4 mg 0.4 mg BEDTIME ORAL 04/20/16 21:00 05/20/16 20:59 04/20/16 20:45 Temazepam (Restoril) 15 mg HSPRN PRN ORAL Insomnia 04/20/16 07:15 04/27/16 07:14 Laboratory Tests 04/21/16 05:30: White Blood Count 5.7, Red Blood Count 4.37L, Hemoglobin 11.1L, Hematocrit 35.4L , Mean Corpuscular Volume 81, Mean Corpuscular Hemoglobin 25.5L, Mean Corpuscular Hemoglobin Concent 31.5L, Red Cell Distribution Width 15.6H, Platelet Count 199, Mean Platelet Volume 6.6, Neutrophils (%) (Auto) 53.4, Lymphocytes (%) (Auto) 37.9, Monocytes (%) (Auto) 6.5, Eosinophils (%) (Auto) 1.6, Basophils (%) (Auto) 0.7, Sodium Level 135, Potassium Level 4.2, Chloride Level 98, Carbon Dioxide Level 26, Anion Gap 11, Blood Urea Nitrogen 13, Creatinine 0.9, Estimat Glomerular Filtration Rate > 60, Glucose Level 388#H, Hemoglobin A1c 12.7H, Calcium Level 8.2L, Phosphorus Level 2.5, Magnesium Level 1.6L, Total Bilirubin 0.3, Aspartate Amino Transf (AST/SGOT) 40, Alanine Aminotransferase (ALT/SGPT) 26, Alkaline Phosphatase 139H, Total Protein 7.2, Albumin 2.5L, Globulin 4.7, Albumin/Globulin Ratio 0.5L, Triglycerides Level 68 , Cholesterol Level 86, LDL Cholesterol 23L, HDL Cholesterol 49, Cholesterol/ HDL Ratio 1.8L, Thyroid Stimulating Hormone (TSH) 0.519 Height (Feet): 6 Height (Inches): 2.00 Weight (Pounds): 170 Objective exam stable SOBIABELA DEL CASTILLO Apr 21, 2016 09:22
[2016-04-21] MEDS: Heparin 5000 units/ml inj SUBQ SCH ×2 (09:44→21:14)
[2016-04-21] MEDS: Benazepril 10mg tab ORAL SCH (09:44)
[2016-04-21] MEDS: Allopurinol 100mg Tab ORAL SCH (09:44)
--- NOTE | 2016-04-21 15:31 | Wound Care Consultation ---
Wound Assessment Wound Assessment #1: Wound Number: #1 Wound Present on Admission: Yes New Wound: No Status Change of Wound: No Wound Location Body Site Modif: left Wound Location Body Site: toe - 4th Wound Type: other - vascular ulcer Imelda Test: Does not Imelda Wound Thickness: Full Thickness Wound Length: 1.0 Wound Width: 1.0 Wound Depth: 0.3 Percent of Wound [place]/Red: 100 Wound Drainage Description: Serosanguineous Wound Drainage Amount: Scant Wound Drainage Odor: None/Absent Tissue Surrounding Wound: Macerated Wound General Appearance: Reddened Wound Assessment #2: Wound Number: #2 Wound Present on Admission: Yes New Wound: No Status Change of Wound: No Wound Location Body Site Modif: left Wound Location Body Site: toe - 2nd Wound Type: other - vascular ulcer Imelda Test: Does not Imelda Wound Thickness: Full Thickness Wound Length: 1.0 Wound Width: 1.0 Wound Depth: 0.3 Percent of Wound [place]/Red: 100 Wound Drainage Description: Serosanguineous Wound Drainage Amount: Scant Wound Drainage Odor: None/Absent Tissue Surrounding Wound: Macerated Wound General Appearance: Reddened Wound Assessment #3: Wound Number: #3 Wound Present on Admission: Yes New Wound: No Status Change of Wound: No Wound Location Body Site Modif: right Wound Location Body Site: toe - 2nd Wound Type: other - vascular ulcer Imelda Test: Does not Imelda Wound Thickness: Full Thickness Wound Length: 1.0 Wound Width: 1.0 Wound Depth: 0.3 Percent of Wound [place]/Red: 100 Wound Drainage Description: Serosanguineous Wound Drainage Amount: Scant Wound Drainage Odor: None/Absent Tissue Surrounding Wound: Erythemic Wound General Appearance: Reddened Wound Assessment #4: Wound Number: #4 Wound Present on Admission: Yes New Wound: No Status Change of Wound: No Wound Location Body Site: other - scrotum Wound Type: chemical burn - with erosion Imelda Test: Does not Imelda Wound Thickness: Partial Thickness Percent of Wound [place]/Red: 100 Wound Drainage Amount: None Wound Drainage Odor: None/Absent Tissue Surrounding Wound: Macerated Wound General Appearance: Reddened Wound Assessment #5: Wound Number: #5 Wound Present on Admission: Yes New Wound: No Status Change of Wound: No Wound Location Body Site Modif: mid Wound Location Body Site: sacral Wound Type: pressure ulcer Imelda Test: Does not Imelda Pressure Ulcer Stage: III - scattered Wound Thickness: Full Thickness Wound Length: 3.0 Wound Width: 3.0 Wound Depth: 0.3 Percent of Wound [place]/Red: 100 Wound Drainage Description: Serosanguineous Wound Drainage Amount: Scant Wound Drainage Odor: None/Absent Tissue Surrounding Wound: Macerated Wound General Appearance: Reddened Wound Assessment #6: Wound Number: #6 Wound Present on Admission: Yes New Wound: No Status Change of Wound: No Wound Location Body Site Modif: left Wound Location Body Site: ischial tuberosity Wound Type: pressure ulcer Imelda Test: Does not Imelda Pressure Ulcer Stage: III Wound Thickness: Full Thickness Wound Length: 2.0 Wound Width: 2.0 Wound Depth: 0.3 Percent of Wound [place]/Red: 100 Wound Drainage Description: Serosanguineous Wound Drainage Amount: Scant Wound Drainage Odor: None/Absent Tissue Surrounding Wound: Macerated Wound General Appearance: Reddened, Bleeding Wound Assessment #7: Wound Present on Admission: Yes New Wound: No Status Change of Wound: No Wound Location Body Site Modif: right Wound Location Body Site: buttocks Wound Type: chemical burn - with erosion Imelda Test: Does not Imelda Percent of Wound [place]/Red: 100 Wound Drainage Amount: None Wound Drainage Odor: None/Absent Tissue Surrounding Wound: Macerated Wound General Appearance: Reddened Wound Comment #1 Left 4th toe Vascular Ulcer. #2 Left 2nd toe Vascular Ulcer. #3 Right 2nd toe Vascular Ulcer. #4 Scrotum Chemical Burn with Erosion. #5 Sacral Scattered Pressure Ulcer Stage III. #6 Left Ischial Tuberosity Pressure Ulcer Stage III. #7 Right Buttock Chemical Burn with erosion. #8 Bilateral lower legs dry scaly skin. Recommendation -FOLLOW UP WITH PODIATRY. -Apply Low air loss mattress (SPR). -Turn and reposition. -Keep clean and dry. -Keep skin moisturized. -Local wound care as ordered. -Optimize Nutrition. -Assess and notify MD for any changes of condition. -Offload affected areas. -Heel Protectors if needed. LACIE CHAMBERLAIN Apr 21, 2016 15:31
--- NOTE | 2016-04-21 15:40 | Internal Med Progress Note ---
Subjective Date of Service: Apr 21, 2016 Physician Name Lazaro Venegas Attending Physician Shailesh Martinez MD Current Medications Medications (Trade) Dose Ordered Sig/Gabriel Route PRN Reason Start Time Stop Time Status Last Admin Dose Admin Acetaminophen (Tylenol) 650 mg Q4H PRN ORAL fever 04/20/16 07:15 05/20/16 07:14 Acetaminophen/ Hydrocodone Bitart ([place] 5/325) 1 tab Q6H PRN ORAL Moderate Pain (Pain Scale 4-6) 04/20/16 07:15 04/27/16 07:14 Al Hydroxide/Mg Hydroxide (Mylanta II) 30 ml Q6H PRN ORAL dyspepsia 04/20/16 07:15 05/20/16 07:14 Albuterol/ Ipratropium (DuoNeb 0.5-3(2.5)mg/3ml) 3 ml Q4HRT PRN HHN Shortness of Breath 04/20/16 07:15 04/25/16 07:14 Allopurinol (Zyloprim) 100 mg DAILY ORAL 04/20/16 09:00 05/20/16 08:59 04/21/16 09:44 Benazepril HCl (Lotensin) 10 mg DAILY ORAL 04/20/16 09:00 05/20/16 08:59 04/21/16 09:44 Ceftriaxone Sodium/Dextrose (Rocephin/D5W) 55 ml @ 110 mls/hr Q24H IVPB 04/21/16 01:00 04/28/16 00:59 04/21/16 01:10 Clonidine HCl (Catapres) 0.1 mg EVERY 6 HOURS ORAL 04/20/16 12:00 05/20/16 11:59 04/21/16 13:02 Clonidine HCl (Catapres) 0.1 mg Q4H PRN ORAL sbp more than 160 04/20/16 07:15 05/20/16 07:14 Dextrose (Dextrose 50%) STAT PRN IV Hypoglycemia 04/20/16 07:15 05/20/16 07:14 Glipizide 10 mg 10 mg BIAC ORAL 04/20/16 16:30 05/20/16 16:29 04/21/16 06:07 Heparin Sodium (Porcine) (Heparin 5000 units/ml) 5,000 units EVERY 12 HOURS SUBQ 04/20/16 09:00 05/20/16 08:59 04/21/16 09:44 Insulin Aspart (NovoLOG) BEFORE MEALS AND HS SUBQ 04/20/16 11:30 05/20/16 11:29 04/21/16 15:15 Ketorolac Tromethamine (Toradol 30mg) 30 mg EVERY 6 HOURS PRN IV moderate pain 4-6 04/20/16 07:15 04/25/16 07:14 Morphine Sulfate (Morphine Sulfate) 2 mg Q4H PRN IVP severe pain 7-10 04/20/16 07:15 04/27/16 07:14 04/21/16 13:20 Nitroglycerin (Ntg) 0.4 mg Q5M X 3 DOSES PRN SL Prn Chest Pain 04/20/16 07:15 05/20/16 07:14 Ondansetron HCl (Zofran) 4 mg Q6H PRN IVP Nausea & Vomiting 04/20/16 07:15 05/20/16 07:14 Ondansetron HCl (Zofran) 4 mg Q6H PRN ORAL Nausea & Vomiting 04/20/16 07:15 05/20/16 07:14 Pantoprazole (Protonix) 40 mg ACBREAKFAST ORAL 04/21/16 06:30 05/20/16 08:59 04/21/16 06:14 Polyethylene Glycol (Miralax) 17 gm DAILY ORAL 04/20/16 09:00 05/20/16 08:59 Polyethylene Glycol (Miralax) 17 gm HSPRN PRN ORAL Constipation 04/20/16 07:15 05/20/16 07:14 Sodium Chloride (Sodium Chloride 1000ml bag) 1,000 ml @ 100 mls/hr Q10H IVLG 04/20/16 07:52 05/20/16 07:51 04/21/16 13:02 Tamsulosin HCl 0.4 mg 0.4 mg BEDTIME ORAL 04/20/16 21:00 05/20/16 20:59 04/20/16 20:45 Temazepam (Restoril) 15 mg HSPRN PRN ORAL Insomnia 04/20/16 07:15 04/27/16 07:14 Allergies: Coded Allergies: No Known Allergies (Unverified , 12/31/11) ROS Limited/Unobtainable: No Constitutional: Reports: no symptoms HEENT: Reports: no symptoms Cardiovascular: Reports: no symptoms Respiratory: Reports: no symptoms Gastrointestinal/Abdominal: Reports: no symptoms Genitourinary: Reports: burning, frequency Neurologic/Psychiatric: Reports: no symptoms Subjective 61 YO M admitted for frequency urination. Cover for Benedicto Dias-Dr Martinez. Glucose values still 300-500's. Await endocrinology consult. Objective Last Vital Signs Date Time Temp Pulse Resp B/P Pulse Ox O2 Delivery O2 Flow Rate FiO2 04/21/16 13:02 146/91 04/21/16 12:00 97.7 66 18 100 Room Air General Appearance: no apparent distress, alert, thin EENT: PERRL/EOMI, normal ENT inspection Neck: non-tender, normal alignment, supple Cardiovascular: normal peripheral pulses, normal rate, regular rhythm, no gallop/murmur, no JVD Respiratory/Chest: chest wall non-tender, lungs clear, normal breath sounds, no respiratory distress, no accessory muscle use Abdomen: normal bowel sounds, non tender, soft, no organomegaly, no mass Extremities: normal range of motion Neurologic: manager rental II-XII grossly normal, no motor/sensory deficits Skin: normal pigmentation, warm/dry Laboratory Tests Test 04/21/16 05:30 White Blood Count 5.7 K/UL (4.8-10.8) Red Blood Count 4.37 M/UL (4.70-6.10) L Hemoglobin 11.1 G/DL (14.2-18.0) L Hematocrit 35.4 % (42.0-52.0) L Mean Corpuscular Volume 81 FL (80-99) Mean Corpuscular Hemoglobin 25.5 PG (27.0-31.0) L Mean Corpuscular Hemoglobin Concent 31.5 G/DL (32.0-36.0) L Red Cell Distribution Width 15.6 % (11.6-14.8) H Platelet Count 199 K/UL (150-450) Mean Platelet Volume 6.6 FL (6.5-10.1) Neutrophils (%) (Auto) 53.4 % (45.0-75.0) Lymphocytes (%) (Auto) 37.9 % (20.0-45.0) Monocytes (%) (Auto) 6.5 % (1.0-10.0) Eosinophils (%) (Auto) 1.6 % (0.0-3.0) Basophils (%) (Auto) 0.7 % (0.0-2.0) Sodium Level 135 mEQ/L (135-145) Potassium Level 4.2 mEQ/L (3.4-4.9) Chloride Level 98 mEQ/L (98-107) Carbon Dioxide Level 26 mEQ/L (20-30) Anion Gap 11 (5-15) Blood Urea Nitrogen 13 mg/dL (7-23) Creatinine 0.9 mg/dL (0.7-1.2) Estimat Glomerular Filtration Rate > 60 mL/min (>60) Glucose Level 388 mg/dL (74-106) #H Hemoglobin A1c 12.7 % (< 6.0) H Calcium Level 8.2 mg/dL (8.6-10.2) L Phosphorus Level 2.5 mg/dL (2.5-4.8) Magnesium Level 1.6 mg/dL (1.7-2.5) L Total Bilirubin 0.3 mg/dL (0.0-1.2) Aspartate Amino Transf (AST/SGOT) 40 U/L (5-40) Alanine Aminotransferase (ALT/SGPT) 26 U/L (3-41) Alkaline Phosphatase 139 U/L (40-129) H Total Protein 7.2 g/dL (6.6-8.7) Albumin 2.5 g/dL (3.5-5.2) L Globulin 4.7 g/dL Albumin/Globulin Ratio 0.5 (1.0-2.7) L Triglycerides Level 68 mg/dL (< 150) Cholesterol Level 86 mg/dL (< 200) LDL Cholesterol 23 mg/dL (60-99) L HDL Cholesterol 49 mg/dL (> 60) Cholesterol/HDL Ratio 1.8 (3.3-4.4) L Thyroid Stimulating Hormone (TSH) 0.519 uIU/mL (0.300-4.500) Microbiology Date/Time Source Procedure Growth Status 04/20/16 14:30 Urine,Clean Catch Urine Culture - Preliminary Resulted 04/20/16 00:21 Urine,Clean Catch Urine Culture - Preliminary Resulted Intake and Output 04/20/16 04/21/16 19:00 07:00 Intake Total 760 ml 1230 ml Output Total 315 ml 1400 ml Balance 445 ml -170 ml Intake Oral 360 ml 120 ml IV Total 400 ml 1110 ml Output Urine Total 315 ml 1400 ml # Bowel Movements 1 Assessment/Plan Problem List: (1) Uncontrolled diabetes mellitus Assessment & Plan: Add levemir qhs; continue novolog sliding scale and glipizide. Await endocrinology consult. (2) Urinary retention Assessment & Plan: See urology note. (3) UTI (urinary tract infection) Assessment & Plan: Cont ceftriaxone. Await urine culture results. (4) BPH (benign prostatic hypertrophy) (5) Hypertension Assessment & Plan: Continue lotensin. Status: not improved LAZARO VENEGAS Apr 21, 2016 15:40
--- NOTE | 2016-04-21 17:10 | Pulmonology Progress Note ---
Assessment/Plan Problems: (1) Uncontrolled diabetes mellitus (2) Hepatitis C (3) Hypertension (4) Gout (5) BPH (benign prostatic hypertrophy) (6) FTT (failure to thrive) in adult (7) Anemia in chronic illness Assessment/Plan improving sliding scale on ceftriaxone cultures are pending all notes, meds, labs Subjective ROS Limited/Unobtainable: No Constitutional: Reports: no symptoms HEENT: Repors: no symptoms Allergies: Coded Allergies: No Known Allergies (Unverified , 12/31/11) Objective Last 24 Hour Vital Signs Date Time Temp Pulse Resp B/P Pulse Ox O2 Delivery O2 Flow Rate FiO2 04/21/16 16:00 97.9 65 16 141/85 100 Room Air 04/21/16 13:02 146/91 04/21/16 12:00 97.7 66 18 146/91 100 Room Air 04/21/16 09:44 124/81 04/21/16 08:00 97.3 65 16 124/81 98 Room Air 04/21/16 06:08 151/94 04/21/16 04:00 97.2 63 21 151/94 98 Room Air 04/21/16 00:26 140/100 04/21/16 00:06 98.2 67 19 140/100 100 Room Air 04/20/16 19:00 97.3 68 20 115/70 98 Room Air Intake and Output 04/20/16 04/21/16 19:00 07:00 Intake Total 760 ml 1230 ml Output Total 315 ml 1400 ml Balance 445 ml -170 ml Intake Oral 360 ml 120 ml IV Total 400 ml 1110 ml Output Urine Total 315 ml 1400 ml # Bowel Movements 1 General Appearance: WD/WN HEENT: normocephalic, anicteric Respiratory/Chest: chest wall non-tender, normal breath sounds Cardiovascular: normal peripheral pulses Abdomen: soft, non tender, no organomegaly Microbiology Date/Time Source Procedure Growth Status 04/20/16 14:30 Urine,Clean Catch Urine Culture - Preliminary Resulted 04/20/16 00:21 Urine,Clean Catch Urine Culture - Preliminary Resulted Laboratory Tests 04/21/16 05:30: White Blood Count 5.7, Red Blood Count 4.37L, Hemoglobin 11.1L, Hematocrit 35.4L , Mean Corpuscular Volume 81, Mean Corpuscular Hemoglobin 25.5L, Mean Corpuscular Hemoglobin Concent 31.5L, Red Cell Distribution Width 15.6H, Platelet Count 199, Mean Platelet Volume 6.6, Neutrophils (%) (Auto) 53.4, Lymphocytes (%) (Auto) 37.9, Monocytes (%) (Auto) 6.5, Eosinophils (%) (Auto) 1.6, Basophils (%) (Auto) 0.7, Sodium Level 135, Potassium Level 4.2, Chloride Level 98, Carbon Dioxide Level 26, Anion Gap 11, Blood Urea Nitrogen 13, Creatinine 0.9, Estimat Glomerular Filtration Rate > 60, Glucose Level 388#H, Hemoglobin A1c 12.7H, Calcium Level 8.2L, Phosphorus Level 2.5, Magnesium Level 1.6L, Total Bilirubin 0.3, Aspartate Amino Transf (AST/SGOT) 40, Alanine Aminotransferase (ALT/SGPT) 26, Alkaline Phosphatase 139H, Total Protein 7.2, Albumin 2.5L, Globulin 4.7, Albumin/Globulin Ratio 0.5L, Triglycerides Level 68 , Cholesterol Level 86, LDL Cholesterol 23L, HDL Cholesterol 49, Cholesterol/ HDL Ratio 1.8L, Thyroid Stimulating Hormone (TSH) 0.519 04/21/16 15:55: Glucose Level 561#*H Current Medications Medications (Trade) Dose Ordered Sig/Gabriel Route PRN Reason Start Time Stop Time Status Last Admin Dose Admin Acetaminophen (Tylenol) 650 mg Q4H PRN ORAL fever 04/20/16 07:15 05/20/16 07:14 Acetaminophen/ Hydrocodone Bitart ([place] 5/325) 1 tab Q6H PRN ORAL Moderate Pain (Pain Scale 4-6) 04/20/16 07:15 04/27/16 07:14 Al Hydroxide/Mg Hydroxide (Mylanta II) 30 ml Q6H PRN ORAL dyspepsia 04/20/16 07:15 05/20/16 07:14 Albuterol/ Ipratropium (DuoNeb 0.5-3(2.5)mg/3ml) 3 ml Q4HRT PRN HHN Shortness of Breath 04/20/16 07:15 04/25/16 07:14 Allopurinol (Zyloprim) 100 mg DAILY ORAL 04/20/16 09:00 05/20/16 08:59 04/21/16 09:44 Benazepril HCl (Lotensin) 10 mg DAILY ORAL 04/20/16 09:00 05/20/16 08:59 04/21/16 09:44 Ceftriaxone Sodium/Dextrose (Rocephin/D5W) 55 ml @ 110 mls/hr Q24H IVPB 04/21/16 01:00 04/28/16 00:59 04/21/16 01:10 Clonidine HCl (Catapres) 0.1 mg EVERY 6 HOURS ORAL 04/20/16 12:00 05/20/16 11:59 04/21/16 13:02 Clonidine HCl (Catapres) 0.1 mg Q4H PRN ORAL sbp more than 160 04/20/16 07:15 05/20/16 07:14 Dextrose (Dextrose 50%) STAT PRN IV Hypoglycemia 04/20/16 07:15 05/20/16 07:14 Glipizide 10 mg 10 mg BIAC ORAL 04/20/16 16:30 05/20/16 16:29 04/21/16 16:45 Heparin Sodium (Porcine) (Heparin 5000 units/ml) 5,000 units EVERY 12 HOURS SUBQ 04/20/16 09:00 05/20/16 08:59 04/21/16 09:44 Insulin Aspart (NovoLOG) BEFORE MEALS AND HS SUBQ 04/20/16 11:30 05/20/16 11:29 04/21/16 16:57 Insulin Detemir (Levemir) 10 units BEDTIME SUBQ 04/21/16 21:00 05/21/16 20:59 Ketorolac Tromethamine (Toradol 30mg) 30 mg EVERY 6 HOURS PRN IV moderate pain 4-6 04/20/16 07:15 04/25/16 07:14 Morphine Sulfate (Morphine Sulfate) 2 mg Q4H PRN IVP severe pain 7-10 04/20/16 07:15 04/27/16 07:14 04/21/16 13:20 Nitroglycerin (Ntg) 0.4 mg Q5M X 3 DOSES PRN SL Prn Chest Pain 04/20/16 07:15 05/20/16 07:14 Ondansetron HCl (Zofran) 4 mg Q6H PRN IVP Nausea & Vomiting 04/20/16 07:15 05/20/16 07:14 Ondansetron HCl (Zofran) 4 mg Q6H PRN ORAL Nausea & Vomiting 04/20/16 07:15 05/20/16 07:14 Pantoprazole (Protonix) 40 mg ACBREAKFAST ORAL 04/21/16 06:30 05/20/16 08:59 04/21/16 06:14 Polyethylene Glycol (Miralax) 17 gm DAILY ORAL 04/20/16 09:00 05/20/16 08:59 Polyethylene Glycol (Miralax) 17 gm HSPRN PRN ORAL Constipation 04/20/16 07:15 05/20/16 07:14 Sodium Chloride (Sodium Chloride 1000ml bag) 1,000 ml @ 100 mls/hr Q10H IVLG 04/20/16 07:52 05/20/16 07:51 04/21/16 13:02 Tamsulosin HCl 0.4 mg 0.4 mg BEDTIME ORAL 04/20/16 21:00 05/20/16 20:59 04/20/16 20:45 Temazepam (Restoril) 15 mg HSPRN PRN ORAL Insomnia 04/20/16 07:15 04/27/16 07:14 SILVA PACE Apr 21, 2016 17:10
--- NOTE | 2016-04-21 18:43 | Consultation ---
Consult Note Consult Note Patient is a poor historian. He does not recall how long the bilaeral foot wounds have been present or how it has been treated in the past. He does mentions that he has peripheral neuropathy and was previously using diabetic shoes. However, he no longer has the diabetic shoes. No nausea, vomiting, fevers , or chills reported Assessment/Plan Assessment: - Bilateral foot ulceration with possible osteomyelitis. Patient is afebrile and without leukocytosis - Probable peripheral vascular disease - Diabetic neuropathy - Poorly controlled diabetes - Bilateral bunion and hammertoe deformity - Hepatitis C - History of gout - Anemia - History of drug abuse Plan: - Start daily dressing changes with topical antibiotic and 4x4 gauze - Ordering bilateral foot radiographs - Ordering bilateral lower extremity arterial studies - Patient will benefit from surgical intervention to correct the severe hallux valgus deformity and offload the 2nd toe wound. The hallux is over riding the 2nd toe and causing pressure on the dorsal aspect which has resulted in ulceration Edil Monroy DPM Apr 21, 2016 18:43
[2016-04-21] MEDS ORDERED: Levemir Flexpen SUBQ SCH (21:00)
[2016-04-21] MEDS: Tamsulosin 0.4mg cap ORAL SCH (21:14)
[2016-04-21] MEDS: Levemir Flexpen SUBQ SCH (21:15)
[2016-04-22] MEDS: cefTRIAXone 1 GM in D5W 55 ML IVPB SCH (00:37)
[2016-04-22 04:00] VITALS: BP 159/90
[2016-04-22] MEDS: GlipiZIDE 5mg tab ORAL SCH ×2 (06:30→17:07)
[2016-04-22] MEDS: NovoLOG Insulin Flexpen SUBQ SCH ×4 (06:32→21:07)
[2016-04-22] MEDS: Morphine Sulfate 2mg/ml Inj IVP PRN ×3 (06:35→21:21)
[2016-04-22 07:20] LABS: BASOPHILS % (AUTO) 0.5 % (0.0-2.0); EOSINOPHILS % (AUTO) 3.4 % (0.0-3.0); LYMPHOCYTES % (AUTO) 37.9 % (20.0-45.0); MEAN CORPUSCULAR HEMOGLOBIN 25.4 PG (27.0-31.0); MEAN CORPUSCULAR HGB CONC 31.2 G/DL (32.0-36.0); MEAN CORPUSCULAR VOLUME 81 FL (80-99); MONOCYTES % (AUTO) 5.6 % (1.0-10.0); NEUTROPHILS % (AUTO) 52.5 % (45.0-75.0); PLATELET COUNT 183 K/UL (150-450); RED BLOOD COUNT 4.11 M/UL (4.70-6.10); RED CELL DISTRIBUTION WIDTH 15.6 % (11.6-14.8); WHITE BLOOD COUNT 4.8 K/UL (4.8-10.8)
[2016-04-22 07:24] LABS: ANION GAP 8 (5-15); CALCIUM 8.2 mg/dL (8.6-10.2); CARBON DIOXIDE 27 mEQ/L (20-30); CHLORIDE 98 mEQ/L (98-107); GLOMERULAR FILTRATION RATE > 60 mL/min (>60); HEMOLYSIS 0; SODIUM 133 mEQ/L (135-145)
[2016-04-22] MEDS: Benazepril 10mg tab ORAL SCH (08:15)
[2016-04-22] MEDS: Allopurinol 100mg Tab ORAL SCH (08:15)
[2016-04-22] MEDS: Heparin 5000 units/ml inj SUBQ SCH ×2 (08:16→21:08)
[2016-04-22] MEDS: Levemir Flexpen SUBQ SCH ×2 (08:16→21:08)
[2016-04-22 08:41] VITALS: BP 142/82
[2016-04-22] MEDS: Miralax 17gm pkt ORAL SCH (09:00)
--- NOTE | 2016-04-22 10:05 | Urology Progress Note ---
Assessment/Plan Assessment/Plan 1. Benign prostatic hypertrophy history. 2. History of lower urinary tract symptoms. 3. Probable neurogenic bladder. 4. Hematuria. 5. Pyuria. 6. Proteinuria. cont with flomax abx f/u on urine cx renal fxn stable Subjective Allergies: Coded Allergies: No Known Allergies (Unverified , 12/31/11) Subjective voiding Objective Last 24 Hour Vital Signs Date Time Temp Pulse Resp B/P Pulse Ox O2 Delivery O2 Flow Rate FiO2 04/22/16 08:41 98.6 66 15 142/82 Room Air 04/22/16 08:15 159/90 04/22/16 06:30 159/90 04/22/16 04:00 97.8 62 20 159/90 100 Room Air 04/22/16 00:36 137/89 04/21/16 23:54 97.3 59 20 137/89 94 Room Air 04/21/16 20:00 98.2 70 19 140/79 100 Room Air 04/21/16 18:19 141/85 04/21/16 16:00 97.9 65 16 141/85 100 Room Air 04/21/16 13:02 146/91 04/21/16 12:00 97.7 66 18 146/91 100 Room Air Intake and Output 04/21/16 04/22/16 19:00 07:00 Intake Total 1990 ml Output Total 450 ml 1350 ml Balance -450 ml 640 ml Intake Oral 1130 ml IV Total 860 ml Output Urine Total 450 ml 1350 ml Microbiology Date/Time Source Procedure Growth Status 04/20/16 14:30 Urine,Clean Catch Urine Culture - Preliminary Gram Negative Bacillus 1 Resulted Current Medications Medications (Trade) Dose Ordered Sig/Gabriel Route PRN Reason Start Time Stop Time Status Last Admin Dose Admin Acetaminophen (Tylenol) 650 mg Q4H PRN ORAL fever 04/20/16 07:15 05/20/16 07:14 Acetaminophen/ Hydrocodone Bitart ([place] 5/325) 1 tab Q6H PRN ORAL Moderate Pain (Pain Scale 4-6) 04/20/16 07:15 04/27/16 07:14 Al Hydroxide/Mg Hydroxide (Mylanta II) 30 ml Q6H PRN ORAL dyspepsia 04/20/16 07:15 05/20/16 07:14 Albuterol/ Ipratropium (DuoNeb 0.5-3(2.5)mg/3ml) 3 ml Q4HRT PRN HHN Shortness of Breath 04/20/16 07:15 04/25/16 07:14 Allopurinol (Zyloprim) 100 mg DAILY ORAL 04/20/16 09:00 05/20/16 08:59 04/22/16 08:15 Benazepril HCl (Lotensin) 10 mg DAILY ORAL 04/20/16 09:00 05/20/16 08:59 04/22/16 08:15 Ceftriaxone Sodium/Dextrose (Rocephin/D5W) 55 ml @ 110 mls/hr Q24H IVPB 04/21/16 01:00 04/28/16 00:59 04/22/16 00:37 Clonidine HCl (Catapres) 0.1 mg EVERY 6 HOURS ORAL 04/20/16 12:00 05/20/16 11:59 04/22/16 06:30 Clonidine HCl (Catapres) 0.1 mg Q4H PRN ORAL sbp more than 160 04/20/16 07:15 05/20/16 07:14 Dextrose (Dextrose 50%) STAT PRN IV Hypoglycemia 04/20/16 07:15 05/20/16 07:14 Glipizide 10 mg 10 mg BIAC ORAL 04/20/16 16:30 05/20/16 16:29 04/22/16 06:30 Heparin Sodium (Porcine) (Heparin 5000 units/ml) 5,000 units EVERY 12 HOURS SUBQ 04/20/16 09:00 05/20/16 08:59 04/22/16 08:16 Insulin Aspart (NovoLOG) BEFORE MEALS AND HS SUBQ 04/20/16 11:30 05/20/16 11:29 04/22/16 06:32 Insulin Detemir (Levemir) 15 units Q12HR SUBQ 04/21/16 21:00 05/21/16 20:59 04/22/16 08:16 Ketorolac Tromethamine (Toradol 30mg) 30 mg EVERY 6 HOURS PRN IV moderate pain 4-6 04/20/16 07:15 04/25/16 07:14 Morphine Sulfate (Morphine Sulfate) 2 mg Q4H PRN IVP severe pain 7-10 04/20/16 07:15 04/27/16 07:14 04/22/16 06:35 Nitroglycerin (Ntg) 0.4 mg Q5M X 3 DOSES PRN SL Prn Chest Pain 04/20/16 07:15 05/20/16 07:14 Ondansetron HCl (Zofran) 4 mg Q6H PRN IVP Nausea & Vomiting 04/20/16 07:15 05/20/16 07:14 Ondansetron HCl (Zofran) 4 mg Q6H PRN ORAL Nausea & Vomiting 04/20/16 07:15 05/20/16 07:14 Pantoprazole (Protonix) 40 mg ACBREAKFAST ORAL 04/21/16 06:30 05/20/16 08:59 04/22/16 06:30 Polyethylene Glycol (Miralax) 17 gm DAILY ORAL 04/20/16 09:00 05/20/16 08:59 Polyethylene Glycol (Miralax) 17 gm HSPRN PRN ORAL Constipation 04/20/16 07:15 05/20/16 07:14 Sodium Chloride (Sodium Chloride 1000ml bag) 1,000 ml @ 100 mls/hr Q10H IVLG 04/20/16 07:52 05/20/16 07:51 04/22/16 08:18 Tamsulosin HCl 0.4 mg 0.4 mg BEDTIME ORAL 04/20/16 21:00 05/20/16 20:59 04/21/16 21:14 Temazepam (Restoril) 15 mg HSPRN PRN ORAL Insomnia 04/20/16 07:15 04/27/16 07:14 04/21/16 22:34 Laboratory Tests 04/21/16 15:55: Glucose Level 561#*H 04/22/16 05:40: Glucose Level 418#H, White Blood Count 4.8, Red Blood Count 4.11L, Hemoglobin 10.4L, Hematocrit 33.5L, Mean Corpuscular Volume 81, Mean Corpuscular Hemoglobin 25.4L, Mean Corpuscular Hemoglobin Concent 31.2L, Red Cell Distribution Width 15.6H, Platelet Count 183, Mean Platelet Volume 7.0, Neutrophils (%) (Auto) 52.5, Lymphocytes (%) (Auto) 37.9, Monocytes (%) (Auto) 5.6, Eosinophils (%) (Auto) 3.4H, Basophils (%) (Auto) 0.5, Sodium Level 133L, Potassium Level 5.0H, Chloride Level 98, Carbon Dioxide Level 27, Anion Gap 8, Blood Urea Nitrogen 15, Creatinine 1.0, Estimat Glomerular Filtration Rate > 60 , Calcium Level 8.2L Height (Feet): 6 Height (Inches): 2.00 Weight (Pounds): 170 Objective exam stable BELA OCONNOR Apr 22, 2016 10:05
--- NOTE | 2016-04-22 12:07 | Diagnostic Imaging Report ---
Indications: Left second and fourth toe ulceration Technique: 3 views left foot Findings: Comparison: None Versus are demonstrated severe hallux valgus and metatarsus adductus. Second through fifth digital rays demonstrates significant hammertoe deformities. These factors less diffuse osteopenia, port image quality limits evaluation. Questionable defect first distal phalangeal tuft. Second through fourth distal phalanges inadequately visualized. Pes planus. Small calcaneal posterior plantar spurs. IMPRESSION: Examination nondiagnostic for osteomyelitis, given limitations described Significant digital right alignment abnormalities as described Osteopenia Pes planus Calcaneal enthesophytes
[2016-04-22 12:10] VITALS: BP 149/80
--- NOTE | 2016-04-22 12:10 | Pulmonology Progress Note ---
Assessment/Plan Assessment/Plan ASSESSMENT DOOC UTI urinary retention BPH HTN chronic hep C anemia of chronic disease decub ulcers ( sacral and Lt ischial st 3)- POA bilateral foot ulceration r/o OM PLAN OF CARE MS floor BS management with long acting Levemir ( increased dose and frequency), Glipizide and SS of insulin prn , watch for hypoglycemia [id number] -grossly not a goal endo follows abx, fup with cx, urine cx + GNB O2, HHN prn CXR negative CT head negative for acute changes lipid panel and TSH stable IVF urology eval noted, monitor HH, stable at baseline, wound care as per wound nurse recommendation podiatry eval noted X ray B foot and Arterial duplex pending wound care for foot ulcers- as per podiatry recommendations DVT, GI prophylaxis case discussed and evaluated by supervising physician Subjective Allergies: Coded Allergies: No Known Allergies (Unverified , 12/31/11) Subjective afebrile, no leucocytosis denies chest pain, SOB able to sit up in the connie assisted by PT, Objective Last 24 Hour Vital Signs Date Time Temp Pulse Resp B/P Pulse Ox O2 Delivery O2 Flow Rate FiO2 04/22/16 08:41 98.6 66 15 142/82 Room Air 04/22/16 08:15 159/90 04/22/16 06:30 159/90 04/22/16 04:00 97.8 62 20 159/90 100 Room Air 04/22/16 00:36 137/89 04/21/16 23:54 97.3 59 20 137/89 94 Room Air 04/21/16 20:00 98.2 70 19 140/79 100 Room Air 04/21/16 18:19 141/85 04/21/16 16:00 97.9 65 16 141/85 100 Room Air 04/21/16 13:02 146/91 04/21/16 12:00 97.7 66 18 146/91 100 Room Air Intake and Output 04/21/16 04/22/16 19:00 07:00 Intake Total 1990 ml Output Total 450 ml 1350 ml Balance -450 ml 640 ml Intake Oral 1130 ml IV Total 860 ml Output Urine Total 450 ml 1350 ml General Appearance: no acute distress, other - awake, alert, with periods of confusion HEENT: normocephalic, atraumatic, anicteric, mucous membranes moist Respiratory/Chest: lungs clear, normal breath sounds, no respiratory distress Cardiovascular: normal peripheral pulses, normal rate Abdomen: normal bowel sounds, soft, non tender, non distended Extremities: other - bilateral foot ulcers Skin: other - sacral and L ishial decub st 3 , POA Neurologic/Psychiatric: abnormal gait, alert, responsive Musculoskeletal: atrophy - BLE Microbiology Date/Time Source Procedure Growth Status 04/20/16 14:30 Urine,Clean Catch Urine Culture - Preliminary Gram Negative Bacillus 1 Resulted 04/20/16 00:21 Urine,Clean Catch Urine Culture - Preliminary Mixed Urogenital Contaminants Resulted Laboratory Tests 04/21/16 15:55: Glucose Level 561#*H 04/22/16 05:40: Glucose Level 418#H, White Blood Count 4.8, Red Blood Count 4.11L, Hemoglobin 10.4L, Hematocrit 33.5L, Mean Corpuscular Volume 81, Mean Corpuscular Hemoglobin 25.4L, Mean Corpuscular Hemoglobin Concent 31.2L, Red Cell Distribution Width 15.6H, Platelet Count 183, Mean Platelet Volume 7.0, Neutrophils (%) (Auto) 52.5, Lymphocytes (%) (Auto) 37.9, Monocytes (%) (Auto) 5.6, Eosinophils (%) (Auto) 3.4H, Basophils (%) (Auto) 0.5, Sodium Level 133L, Potassium Level 5.0H, Chloride Level 98, Carbon Dioxide Level 27, Anion Gap 8, Blood Urea Nitrogen 15, Creatinine 1.0, Estimat Glomerular Filtration Rate > 60 , Calcium Level 8.2L Current Medications Medications (Trade) Dose Ordered Sig/Gabriel Route PRN Reason Start Time Stop Time Status Last Admin Dose Admin Acetaminophen (Tylenol) 650 mg Q4H PRN ORAL fever 04/20/16 07:15 05/20/16 07:14 Acetaminophen/ Hydrocodone Bitart ([place] 5/325) 1 tab Q6H PRN ORAL Moderate Pain (Pain Scale 4-6) 04/20/16 07:15 04/27/16 07:14 Al Hydroxide/Mg Hydroxide (Mylanta II) 30 ml Q6H PRN ORAL dyspepsia 04/20/16 07:15 05/20/16 07:14 Albuterol/ Ipratropium (DuoNeb 0.5-3(2.5)mg/3ml) 3 ml Q4HRT PRN HHN Shortness of Breath 04/20/16 07:15 04/25/16 07:14 Allopurinol (Zyloprim) 100 mg DAILY ORAL 04/20/16 09:00 05/20/16 08:59 04/22/16 08:15 Benazepril HCl (Lotensin) 10 mg DAILY ORAL 04/20/16 09:00 05/20/16 08:59 04/22/16 08:15 Ceftriaxone Sodium/Dextrose (Rocephin/D5W) 55 ml @ 110 mls/hr Q24H IVPB 04/21/16 01:00 04/28/16 00:59 04/22/16 00:37 Clonidine HCl (Catapres) 0.1 mg EVERY 6 HOURS ORAL 04/20/16 12:00 05/20/16 11:59 04/22/16 06:30 Clonidine HCl (Catapres) 0.1 mg Q4H PRN ORAL sbp more than 160 04/20/16 07:15 05/20/16 07:14 Dextrose (Dextrose 50%) STAT PRN IV Hypoglycemia 04/20/16 07:15 05/20/16 07:14 Glipizide 10 mg 10 mg BIAC ORAL 04/20/16 16:30 05/20/16 16:29 04/22/16 06:30 Heparin Sodium (Porcine) (Heparin 5000 units/ml) 5,000 units EVERY 12 HOURS SUBQ 04/20/16 09:00 05/20/16 08:59 04/22/16 08:16 Insulin Aspart (NovoLOG) BEFORE MEALS AND HS SUBQ 04/20/16 11:30 05/20/16 11:29 04/22/16 06:32 Insulin Detemir (Levemir) 15 units Q12HR SUBQ 04/21/16 21:00 05/21/16 20:59 04/22/16 08:16 Ketorolac Tromethamine (Toradol 30mg) 30 mg EVERY 6 HOURS PRN IV moderate pain 4-6 04/20/16 07:15 04/25/16 07:14 Morphine Sulfate (Morphine Sulfate) 2 mg Q4H PRN IVP severe pain 7-10 04/20/16 07:15 04/27/16 07:14 04/22/16 06:35 Nitroglycerin (Ntg) 0.4 mg Q5M X 3 DOSES PRN SL Prn Chest Pain 04/20/16 07:15 05/20/16 07:14 Ondansetron HCl (Zofran) 4 mg Q6H PRN IVP Nausea & Vomiting 04/20/16 07:15 05/20/16 07:14 Ondansetron HCl (Zofran) 4 mg Q6H PRN ORAL Nausea & Vomiting 04/20/16 07:15 05/20/16 07:14 Pantoprazole (Protonix) 40 mg ACBREAKFAST ORAL 04/21/16 06:30 05/20/16 08:59 04/22/16 06:30 Polyethylene Glycol (Miralax) 17 gm DAILY ORAL 04/20/16 09:00 05/20/16 08:59 Polyethylene Glycol (Miralax) 17 gm HSPRN PRN ORAL Constipation 04/20/16 07:15 05/20/16 07:14 Sodium Chloride (Sodium Chloride 1000ml bag) 1,000 ml @ 100 mls/hr Q10H IVLG 04/20/16 07:52 05/20/16 07:51 04/22/16 08:18 Tamsulosin HCl 0.4 mg 0.4 mg BEDTIME ORAL 04/20/16 21:00 05/20/16 20:59 04/21/16 21:14 Temazepam (Restoril) 15 mg HSPRN PRN ORAL Insomnia 04/20/16 07:15 04/27/16 07:14 04/21/16 22:34 Damon BotelloJina burris NP Apr 22, 2016 12:10
--- NOTE | 2016-04-22 14:53 | Diagnostic Imaging Report ---
Indications: Right foot pain, infection Technique: 3 views right foot Findings: Comparison: None First digital ray demonstrates severe hallux valgus and metatarsus adductus. Overlying soft tissue swelling with defect. Focal destruction or cortical irregularity of the first distal phalangeal tuft indeterminate. Second through fifth digital rays demonstrates significant hammertoe deformities. Bones diffusely demineralized.. Second through fourth distal phalanges inadequately visualized. Pes planus. IMPRESSION: Hallux soft tissue swelling/defect. Underlying osteomyelitis not excludable. Examination nondiagnostic for additional foci of osteomyelitis in the second through fourth digits given limitations described Significant digital alignment abnormalities as described Osteopenia Pes planus
--- NOTE | 2016-04-22 15:32 | Podiatric Progress Note ---
Assessment/Plan Patient Gill Caraballo is a 61 year old male who was admitted on Apr 20, 2016 at 01:45 with bilateral foot ulceration Problems: (1) Diabetic foot ulcer (2) Diabetic neuropathy (3) Hallux valgus (acquired), left foot (4) Hallux valgus (acquired), right foot (5) Hammer toes of both feet (6) Anemia (7) Gout (8) Hepatitis C Assessment/Plan - Bilateral 2nd toe wounds are present secondary to severe hallux valgus deformity which is over riding the 2nd toe and resulting in pressure ulcers. Considering surgical intervention to correct the hallux valgus deformity to offload the 2nd toe based on vascular studies which have been ordered. Will follow up results - Bilateral foot radiographs were taken. Unclear if osteomyelitis is present since there is significant overlap due to severe hallux valgus over riding the 2nd toe and hammertoe deformities. - Continue daily dressing changes Subjective Reason for consult Bilateral foot ulceration Allergies: Coded Allergies: No Known Allergies (Unverified , 12/31/11) Subjective Patient states no nausea, vomiting, fevers, or chills. He states that he used to have diabetic shoes but he does not have them any longer. Objective Exam Last 24 Hour Vital Signs Date Time Temp Pulse Resp B/P Pulse Ox O2 Delivery O2 Flow Rate FiO2 04/22/16 12:55 97.8 04/22/16 12:24 149/80 04/22/16 12:10 97.8 64 15 149/80 99 Room Air 04/22/16 08:41 98.6 66 15 142/82 Room Air 04/22/16 08:15 159/90 04/22/16 06:30 159/90 04/22/16 04:00 97.8 62 20 159/90 100 Room Air 04/22/16 00:36 137/89 04/21/16 23:54 97.3 59 20 137/89 94 Room Air 04/21/16 20:00 98.2 70 19 140/79 100 Room Air 04/21/16 18:19 141/85 04/21/16 16:00 97.9 65 16 141/85 100 Room Air Laboratory Tests Test 04/21/16 15:55 04/22/16 05:40 Glucose Level 561 mg/dL (74-106) #*H 418 mg/dL (74-106) #H White Blood Count 4.8 K/UL (4.8-10.8) Red Blood Count 4.11 M/UL (4.70-6.10) L Hemoglobin 10.4 G/DL (14.2-18.0) L Hematocrit 33.5 % (42.0-52.0) L Mean Corpuscular Volume 81 FL (80-99) Mean Corpuscular Hemoglobin 25.4 PG (27.0-31.0) L Mean Corpuscular Hemoglobin Concent 31.2 G/DL (32.0-36.0) L Red Cell Distribution Width 15.6 % (11.6-14.8) H Platelet Count 183 K/UL (150-450) Mean Platelet Volume 7.0 FL (6.5-10.1) Neutrophils (%) (Auto) 52.5 % (45.0-75.0) Lymphocytes (%) (Auto) 37.9 % (20.0-45.0) Monocytes (%) (Auto) 5.6 % (1.0-10.0) Eosinophils (%) (Auto) 3.4 % (0.0-3.0) H Basophils (%) (Auto) 0.5 % (0.0-2.0) Sodium Level 133 mEQ/L (135-145) L Potassium Level 5.0 mEQ/L (3.4-4.9) H Chloride Level 98 mEQ/L (98-107) Carbon Dioxide Level 27 mEQ/L (20-30) Anion Gap 8 (5-15) Blood Urea Nitrogen 15 mg/dL (7-23) Creatinine 1.0 mg/dL (0.7-1.2) Estimat Glomerular Filtration Rate > 60 mL/min (>60) Calcium Level 8.2 mg/dL (8.6-10.2) L Microbiology Date/Time Source Procedure Growth Status 04/20/16 14:30 Urine,Clean Catch Urine Culture - Preliminary Gram Negative Bacillus 1 Resulted Exam Narrative Bilateral foot with severe hallux valgus deformity with the hallux over riding the 2nd toe. There is a pressure ulcer at the dorsal 2nd toe bilaterally. There is also an ulcer at the left foot medial aspect of the 4th toe. The ulcers appear to be superficial and no purulence or malodor in noted Dermatological Wound Assessment : Exudate Amount: None Edil Monroy DPM Apr 22, 2016 15:32
[2016-04-22 16:00] VITALS: BP 157/90
[2016-04-22] MEDS: Norco 5mg/325mg tab ORAL PRN (17:07)
--- NOTE | 2016-04-22 17:27 | Internal Med Progress Note ---
Subjective Date of Service: Apr 22, 2016 Physician Name Lazaro Venegas Attending Physician Shailesh Martinez MD Current Medications Medications (Trade) Dose Ordered Sig/Gabriel Route PRN Reason Start Time Stop Time Status Last Admin Dose Admin Acetaminophen (Tylenol) 650 mg Q4H PRN ORAL fever 04/20/16 07:15 05/20/16 07:14 Acetaminophen/ Hydrocodone Bitart ([place] 5/325) 1 tab Q6H PRN ORAL Moderate Pain (Pain Scale 4-6) 04/20/16 07:15 04/27/16 07:14 04/22/16 17:07 Al Hydroxide/Mg Hydroxide (Mylanta II) 30 ml Q6H PRN ORAL dyspepsia 04/20/16 07:15 05/20/16 07:14 Albuterol/ Ipratropium (DuoNeb 0.5-3(2.5)mg/3ml) 3 ml Q4HRT PRN HHN Shortness of Breath 04/20/16 07:15 04/25/16 07:14 Allopurinol (Zyloprim) 100 mg DAILY ORAL 04/20/16 09:00 05/20/16 08:59 04/22/16 08:15 Benazepril HCl (Lotensin) 10 mg DAILY ORAL 04/20/16 09:00 05/20/16 08:59 04/22/16 08:15 Ceftriaxone Sodium/Dextrose (Rocephin/D5W) 55 ml @ 110 mls/hr Q24H IVPB 04/21/16 01:00 04/28/16 00:59 04/22/16 00:37 Clonidine HCl (Catapres) 0.1 mg EVERY 6 HOURS ORAL 04/20/16 12:00 05/20/16 11:59 04/22/16 17:15 Clonidine HCl (Catapres) 0.1 mg Q4H PRN ORAL sbp more than 160 04/20/16 07:15 05/20/16 07:14 Dextrose (Dextrose 50%) STAT PRN IV Hypoglycemia 04/20/16 07:15 05/20/16 07:14 Glipizide 10 mg 10 mg BIAC ORAL 04/20/16 16:30 05/20/16 16:29 04/22/16 17:07 Heparin Sodium (Porcine) (Heparin 5000 units/ml) 5,000 units EVERY 12 HOURS SUBQ 04/20/16 09:00 05/20/16 08:59 04/22/16 08:16 Insulin Aspart (NovoLOG) BEFORE MEALS AND HS SUBQ 04/20/16 11:30 05/20/16 11:29 04/22/16 17:06 Insulin Detemir (Levemir) 15 units Q12HR SUBQ 04/21/16 21:00 05/21/16 20:59 04/22/16 08:16 Ketorolac Tromethamine (Toradol 30mg) 30 mg EVERY 6 HOURS PRN IV moderate pain 4-6 04/20/16 07:15 04/25/16 07:14 Morphine Sulfate (Morphine Sulfate) 2 mg Q4H PRN IVP severe pain 7-10 04/20/16 07:15 04/27/16 07:14 04/22/16 12:25 Nitroglycerin (Ntg) 0.4 mg Q5M X 3 DOSES PRN SL Prn Chest Pain 04/20/16 07:15 05/20/16 07:14 Ondansetron HCl (Zofran) 4 mg Q6H PRN IVP Nausea & Vomiting 04/20/16 07:15 05/20/16 07:14 Ondansetron HCl (Zofran) 4 mg Q6H PRN ORAL Nausea & Vomiting 04/20/16 07:15 05/20/16 07:14 Pantoprazole (Protonix) 40 mg ACBREAKFAST ORAL 04/21/16 06:30 05/20/16 08:59 04/22/16 06:30 Polyethylene Glycol (Miralax) 17 gm DAILY ORAL 04/20/16 09:00 05/20/16 08:59 Polyethylene Glycol (Miralax) 17 gm HSPRN PRN ORAL Constipation 04/20/16 07:15 05/20/16 07:14 Sodium Chloride (Sodium Chloride 1000ml bag) 1,000 ml @ 100 mls/hr Q10H IVLG 04/20/16 07:52 05/20/16 07:51 04/22/16 08:18 Tamsulosin HCl 0.4 mg 0.4 mg BEDTIME ORAL 04/20/16 21:00 05/20/16 20:59 04/21/16 21:14 Temazepam (Restoril) 15 mg HSPRN PRN ORAL Insomnia 04/20/16 07:15 04/27/16 07:14 04/21/16 22:34 Allergies: Coded Allergies: No Known Allergies (Unverified , 12/31/11) ROS Limited/Unobtainable: No Constitutional: Reports: no symptoms HEENT: Reports: no symptoms Cardiovascular: Reports: no symptoms Respiratory: Reports: no symptoms Gastrointestinal/Abdominal: Reports: no symptoms Genitourinary: Reports: frequency Neurologic/Psychiatric: Reports: no symptoms Subjective 61 YO M admitted for frequency urination. Cover for Int Arun-Dr Martinez. Glucose values still 300-500's. Objective Last Vital Signs Date Time Temp Pulse Resp B/P Pulse Ox O2 Delivery O2 Flow Rate FiO2 04/22/16 17:15 157/90 04/22/16 16:00 98.4 72 18 98 Room Air Laboratory Tests Test 04/22/16 05:40 White Blood Count 4.8 K/UL (4.8-10.8) Red Blood Count 4.11 M/UL (4.70-6.10) L Hemoglobin 10.4 G/DL (14.2-18.0) L Hematocrit 33.5 % (42.0-52.0) L Mean Corpuscular Volume 81 FL (80-99) Mean Corpuscular Hemoglobin 25.4 PG (27.0-31.0) L Mean Corpuscular Hemoglobin Concent 31.2 G/DL (32.0-36.0) L Red Cell Distribution Width 15.6 % (11.6-14.8) H Platelet Count 183 K/UL (150-450) Mean Platelet Volume 7.0 FL (6.5-10.1) Neutrophils (%) (Auto) 52.5 % (45.0-75.0) Lymphocytes (%) (Auto) 37.9 % (20.0-45.0) Monocytes (%) (Auto) 5.6 % (1.0-10.0) Eosinophils (%) (Auto) 3.4 % (0.0-3.0) H Basophils (%) (Auto) 0.5 % (0.0-2.0) Sodium Level 133 mEQ/L (135-145) L Potassium Level 5.0 mEQ/L (3.4-4.9) H Chloride Level 98 mEQ/L (98-107) Carbon Dioxide Level 27 mEQ/L (20-30) Anion Gap 8 (5-15) Blood Urea Nitrogen 15 mg/dL (7-23) Creatinine 1.0 mg/dL (0.7-1.2) Estimat Glomerular Filtration Rate > 60 mL/min (>60) Glucose Level 418 mg/dL (74-106) #H Calcium Level 8.2 mg/dL (8.6-10.2) L Microbiology Date/Time Source Procedure Growth Status 04/20/16 14:30 Urine,Clean Catch Urine Culture - Preliminary Gram Negative Bacillus 1 Resulted 04/20/16 00:21 Urine,Clean Catch Urine Culture - Preliminary Mixed Urogenital Contaminants Resulted Intake and Output 04/21/16 04/22/16 19:00 07:00 Intake Total 1990 ml Output Total 450 ml 1350 ml Balance -450 ml 640 ml Intake Oral 1130 ml IV Total 860 ml Output Urine Total 450 ml 1350 ml Objective General Appearance: no apparent distress, alert, thin EENT: PERRL/EOMI, normal ENT inspection Neck: non-tender, normal alignment, supple Cardiovascular: normal peripheral pulses, normal rate, regular rhythm, no gallop/murmur, no JVD Respiratory/Chest: chest wall non-tender, lungs clear, normal breath sounds, no respiratory distress, no accessory muscle use Abdomen: normal bowel sounds, non tender, soft, no organomegaly, no mass Extremities: normal range of motion 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 See endocrinology recs. (2) Urinary retention Assessment & Plan: See urology note. (3) UTI (urinary tract infection) Assessment & Plan: Gram neg rods. Cont ceftriaxone for now. Await urine culture results. (4) BPH (benign prostatic hypertrophy) Assessment & Plan: Continue flomax per urology. See urology recs. (5) Hypertension Assessment & Plan: Continue lotensin. (6) RIGHT FOOT VASCULAR ULCER Assessment & Plan: See podiatry note. (7) SUSPICION OF CHARCOT FOOT AND TOE DEFORMITY Status: not improved LAZARO VENEGAS Apr 22, 2016 17:27
--- NOTE | 2016-04-22 19:27 | Consultation ---
DATE OF CONSULTATION: 04/21/2016 CONSULTING PHYSICIAN: Edil Monroy D.P.M., covering for Hernandez Rivas D.P.M. CONSULTING SPECIALTY: Podiatry. REASON FOR CONSULTATION: Bilateral foot wounds. HISTORY OF PRESENT ILLNESS: The patient is a poor historian. He does state that he has neuropathy in both of his feet. He does not recall how long the wounds have been present and how they have been treated in the past. Patient does mention that someone comes to his house occasionally to perform dressing changes. The remainder of the history was obtained from reviewing the chart. PAST MEDICAL HISTORY: Benign prostatic hyperplasia, diabetic neuropathy, type 2 diabetes, hypertension, hepatitis C, and anemia. ALLERGIES: None known. CURRENT MEDICATIONS: Ceftriaxone. PHYSICAL EXAMINATION: VITAL SIGNS: On 04/21/2016, temperature 98.2 degrees, pulse is 70, respiratory rate 19, blood pressure 140/79, and pulse oximetry is 100% on room air. DERMATOLOGICAL: Ulcer on the dorsal second toes bilaterally and left foot ulcer and on the medial fourth toe to the level of joint capsule. No purulence or malodor noted. Serous drainage present. Mild surrounding erythema. No ascending lymphangitis noted. NEUROLOGICAL: Decreased sensation to light touch. VASCULAR: Dorsalis pedis 2/4 and posterior tibial pulse is 1/4 bilaterally. Bilateral legs with pitting edema. Both feet and legs are cool to touch. MUSCULOSKELETAL: Severe bunion deformity with the hallux overriding of the second toe and rigid hammertoe deformities of toes 2 through 5 bilaterally. LABORATORY DATA: White blood count of 5.7, red blood count of 4.37, hemoglobin of 11.1, hematocrit of 35.4, platelets of 199,000, and neutrophils of 63.4. Sodium of 135, potassium 4.2, chloride 98, CO2 26, BUN 13, and creatinine 0.9. Hemoglobin A1c of 12.7. ASSESSMENT: Bilateral foot ulceration with possible osteomyelitis, peripheral vascular disease, diabetic neuropathy, poorly controlled diabetes, bilateral bunion and hammertoe deformity. PLAN: 1. Start daily dressing changes with topical antibiotic and 4 x 4 gauze. 2. Ordering bilateral foot x-rays. 3. Ordering arterial studies. Edil Monroy DPM DR: KAREN JOB#: [id number] CC: TONY
[2016-04-22 20:00] VITALS: BP 146/80
[2016-04-22] MEDS: Tamsulosin 0.4mg cap ORAL SCH (21:05)
[2016-04-23] VITALS: BP 139/81
[2016-04-23] MEDS: Norco 5mg/325mg tab ORAL PRN ×3 (00:30→17:16)
[2016-04-23] MEDS: cefTRIAXone 1 GM in D5W 55 ML IVPB SCH (02:20)
[2016-04-23 04:00] VITALS: BP 155/88
[2016-04-23] MEDS: Morphine Sulfate 2mg/ml Inj IVP PRN (04:58)
[2016-04-23] MEDS: GlipiZIDE 5mg tab ORAL SCH ×2 (05:41→17:16)
[2016-04-23] MEDS: NovoLOG Insulin Flexpen SUBQ SCH ×7 (06:26→20:53)
[2016-04-23 08:00] VITALS: BP 142/76
--- NOTE | 2016-04-23 08:52 | Urology Progress Note ---
Assessment/Plan Assessment/Plan 1. Benign prostatic hypertrophy history. 2. History of lower urinary tract symptoms. 3. Probable neurogenic bladder. 4. Hematuria. 5. Pyuria. 6. Proteinuria. cont with flomax abx f/u on urine cx renal fxn stable Subjective Allergies: Coded Allergies: No Known Allergies (Unverified , 12/31/11) Subjective voiding Objective Last 24 Hour Vital Signs Date Time Temp Pulse Resp B/P Pulse Ox O2 Delivery O2 Flow Rate FiO2 04/23/16 05:42 155/88 04/23/16 04:00 98.1 63 18 155/88 97 Room Air 04/23/16 00:29 139/81 04/23/16 00:00 97.2 68 18 139/81 98 Room Air 04/22/16 20:00 98.4 76 17 146/80 100 Room Air 04/22/16 17:15 157/90 04/22/16 16:00 98.4 72 18 157/90 98 Room Air 04/22/16 12:55 97.8 04/22/16 12:24 149/80 04/22/16 12:10 97.8 64 15 149/80 99 Room Air Intake and Output 04/22/16 04/23/16 18:59 06:59 Intake Total 3200 ml 1610 ml Output Total 1500 ml 1050 ml Balance 1700 ml 560 ml Intake Oral 2000 ml 600 ml IV Total 1200 ml 1010 ml Output Urine Total 1500 ml 1050 ml # Voids 4 Microbiology Date/Time Source Procedure Growth Status 04/20/16 20:00 Stool Stool Culture - Final NO SALMONELLA,SHIGELLA,OR CAMPYLOBACT... Complete 04/20/16 14:30 Urine,Clean Catch Urine Culture - Preliminary Gram Negative Bacillus 1 Resulted Current Medications Medications (Trade) Dose Ordered Sig/Gabriel Route PRN Reason Start Time Stop Time Status Last Admin Dose Admin Acetaminophen (Tylenol) 650 mg Q4H PRN ORAL fever 04/20/16 07:15 05/20/16 07:14 Acetaminophen/ Hydrocodone Bitart ([place] 5/325) 1 tab Q6H PRN ORAL Moderate Pain (Pain Scale 4-6) 04/20/16 07:15 04/27/16 07:14 04/23/16 00:30 Al Hydroxide/Mg Hydroxide (Mylanta II) 30 ml Q6H PRN ORAL dyspepsia 04/20/16 07:15 05/20/16 07:14 Albuterol/ Ipratropium (DuoNeb 0.5-3(2.5)mg/3ml) 3 ml Q4HRT PRN HHN Shortness of Breath 04/20/16 07:15 04/25/16 07:14 Allopurinol (Zyloprim) 100 mg DAILY ORAL 04/20/16 09:00 05/20/16 08:59 04/22/16 08:15 Benazepril HCl (Lotensin) 10 mg DAILY ORAL 04/20/16 09:00 05/20/16 08:59 04/22/16 08:15 Ceftriaxone Sodium/Dextrose (Rocephin/D5W) 55 ml @ 110 mls/hr Q24H IVPB 04/21/16 01:00 04/28/16 00:59 04/23/16 02:20 Clonidine HCl (Catapres) 0.1 mg EVERY 6 HOURS ORAL 04/20/16 12:00 05/20/16 11:59 04/23/16 05:42 Clonidine HCl (Catapres) 0.1 mg Q4H PRN ORAL sbp more than 160 04/20/16 07:15 05/20/16 07:14 Dextrose (Dextrose 50%) STAT PRN IV Hypoglycemia 04/20/16 07:15 05/20/16 07:14 Glipizide 10 mg 10 mg BIAC ORAL 04/20/16 16:30 05/20/16 16:29 04/23/16 05:41 Heparin Sodium (Porcine) (Heparin 5000 units/ml) 5,000 units EVERY 12 HOURS SUBQ 04/20/16 09:00 05/20/16 08:59 04/22/16 21:08 Insulin Aspart (NovoLOG) BEFORE MEALS AND HS SUBQ 04/20/16 11:30 05/20/16 11:29 04/23/16 06:27 Insulin Aspart (NovoLOG) 10 units NOVOTIAC SUBQ 04/23/16 06:30 05/23/16 06:29 04/23/16 06:26 Insulin Detemir (Levemir) 20 units Q12HR SUBQ 04/23/16 09:00 05/23/16 08:59 Ketorolac Tromethamine (Toradol 30mg) 30 mg EVERY 6 HOURS PRN IV moderate pain 4-6 04/20/16 07:15 04/25/16 07:14 Morphine Sulfate (Morphine Sulfate) 2 mg Q4H PRN IVP severe pain 7-10 04/20/16 07:15 04/27/16 07:14 04/23/16 04:58 Nitroglycerin (Ntg) 0.4 mg Q5M X 3 DOSES PRN SL Prn Chest Pain 04/20/16 07:15 05/20/16 07:14 Ondansetron HCl (Zofran) 4 mg Q6H PRN IVP Nausea & Vomiting 04/20/16 07:15 05/20/16 07:14 Ondansetron HCl (Zofran) 4 mg Q6H PRN ORAL Nausea & Vomiting 04/20/16 07:15 05/20/16 07:14 Pantoprazole (Protonix) 40 mg ACBREAKFAST ORAL 04/21/16 06:30 05/20/16 08:59 04/23/16 05:41 Polyethylene Glycol (Miralax) 17 gm DAILY ORAL 04/20/16 09:00 05/20/16 08:59 Polyethylene Glycol (Miralax) 17 gm HSPRN PRN ORAL Constipation 04/20/16 07:15 05/20/16 07:14 Sodium Chloride (Sodium Chloride 1000ml bag) 1,000 ml @ 100 mls/hr Q10H IVLG 04/20/16 07:52 05/20/16 07:51 04/23/16 00:30 Tamsulosin HCl 0.4 mg 0.4 mg BEDTIME ORAL 04/20/16 21:00 05/20/16 20:59 04/22/16 21:05 Temazepam (Restoril) 15 mg HSPRN PRN ORAL Insomnia 04/20/16 07:15 04/27/16 07:14 04/21/16 22:34 Height (Feet): 6 Height (Inches): 2.00 Weight (Pounds): 170 Objective exam stable BELA OCONNOR Apr 23, 2016 08:52
[2016-04-23] MEDS: Miralax 17gm pkt ORAL SCH (09:00)
[2016-04-23] MEDS: Allopurinol 100mg Tab ORAL SCH (09:46)
[2016-04-23] MEDS: Benazepril 10mg tab ORAL SCH (09:46)
[2016-04-23] MEDS: Levemir Flexpen SUBQ SCH ×2 (09:48→21:35)
[2016-04-23] MEDS: Heparin 5000 units/ml inj SUBQ SCH ×2 (09:49→20:52)
[2016-04-23 10:04] LABS: BASOPHILS % (AUTO) 0.7 % (0.0-2.0); EOSINOPHILS % (AUTO) 3.5 % (0.0-3.0); LYMPHOCYTES % (AUTO) 36.3 % (20.0-45.0); MEAN CORPUSCULAR HEMOGLOBIN 25.2 PG (27.0-31.0); MEAN CORPUSCULAR HGB CONC 30.9 G/DL (32.0-36.0); MEAN CORPUSCULAR VOLUME 82 FL (80-99); MEAN PLATELET VOLUME 6.8 FL (6.5-10.1); MONOCYTES % (AUTO) 6.3 % (1.0-10.0); NEUTROPHILS % (AUTO) 53.3 % (45.0-75.0); PLATELET COUNT 175 K/UL (150-450); RED BLOOD COUNT 4.09 M/UL (4.70-6.10); RED CELL DISTRIBUTION WIDTH 15.4 % (11.6-14.8); WHITE BLOOD COUNT 5.1 K/UL (4.8-10.8)
[2016-04-23 10:13] LABS: ANION GAP 10 (5-15); CALCIUM 7.9 mg/dL (8.6-10.2); CARBON DIOXIDE 25 mEQ/L (20-30); CHLORIDE 95 mEQ/L (98-107); CREATININE 0.8 mg/dL (0.7-1.2); GLOMERULAR FILTRATION RATE > 60 mL/min (>60); HEMOLYSIS 3; MAGNESIUM 1.7 mg/dL (1.7-2.5); POTASSIUM 4.5 mEQ/L (3.4-4.9); SODIUM 130 mEQ/L (135-145)
[2016-04-23 12:08] VITALS: BP 147/89
--- NOTE | 2016-04-23 14:19 | Pulmonology Progress Note ---
Assessment/Plan Assessment/Plan ASSESSMENT DOOC UTI urinary retention BPH HTN chronic hep C anemia of chronic disease decub ulcers ( sacral and Lt ischial st 3)- POA bilateral foot ulceration r/o OM PLAN OF CARE MS floor BS management with long acting Levemir ( increased dose and frequency), Glipizide and SS of insulin prn , watch for hypoglycemia [id number] -grossly not a goal endo follows abx, fup with cx, urine cx +E coli ESBL O2, HHN prn CXR negative CT head negative for acute changes lipid panel and TSH stable IVF urology eval noted, monitor HH, stable at baseline, wound care as per wound nurse recommendation podiatry eval noted X ray B foot non diagnostic for OM, significant alignment abnormalities Arterial duplex pending wound care for foot ulcers- as per podiatry recommendations DVT, GI prophylaxis case discussed and evaluated by supervising physician Subjective Allergies: Coded Allergies: No Known Allergies (Unverified , 12/31/11) Subjective afebrile, no leucocytosis denies chest pain, SOB Objective Last 24 Hour Vital Signs Date Time Temp Pulse Resp B/P Pulse Ox O2 Delivery O2 Flow Rate FiO2 04/23/16 12:37 147/89 04/23/16 12:08 97.3 61 15 147/89 99 Room Air 04/23/16 09:46 142/76 04/23/16 08:00 97.7 75 16 142/76 99 04/23/16 05:42 155/88 04/23/16 04:00 98.1 63 18 155/88 97 Room Air 04/23/16 00:29 139/81 04/23/16 00:00 97.2 68 18 139/81 98 Room Air 04/22/16 20:00 98.4 76 17 146/80 100 Room Air 04/22/16 17:15 157/90 04/22/16 16:00 98.4 72 18 157/90 98 Room Air Intake and Output 04/22/16 04/23/16 19:00 07:00 Intake Total 3100 ml 1610 ml Output Total 1500 ml 1050 ml Balance 1600 ml 560 ml Intake Oral 2000 ml 600 ml IV Total 1100 ml 1010 ml Output Urine Total 1500 ml 1050 ml # Voids 4 Objective General Appearance: no acute distress, awake, alert, with periods of confusion HEENT: normocephalic, atraumatic, anicteric, mucous membranes moist Respiratory/Chest: lungs clear, normal breath sounds, no respiratory distress Cardiovascular: normal peripheral pulses, normal rate Abdomen: normal bowel sounds, soft, non tender, non distended Extremities: bilateral foot ulcers Skin: other - sacral and L ischial decub st 3 , POA Neurologic/Psychiatric: abnormal gait, alert, responsive Musculoskeletal: atrophy - BLE Microbiology Date/Time Source Procedure Growth Status 04/20/16 20:00 Stool Stool Culture - Final NO SALMONELLA,SHIGELLA,OR CAMPYLOBACT... Complete 04/20/16 14:30 Urine,Clean Catch Urine Culture - Final Escherichia Coli - Esbl Mixed Gram Positive Organism Complete Laboratory Tests 04/23/16 09:50: White Blood Count 5.1, Red Blood Count 4.09L, Hemoglobin 10.3L, Hematocrit 33.4L , Mean Corpuscular Volume 82, Mean Corpuscular Hemoglobin 25.2L, Mean Corpuscular Hemoglobin Concent 30.9L, Red Cell Distribution Width 15.4H, Platelet Count 175, Mean Platelet Volume 6.8, Neutrophils (%) (Auto) 53.3, Lymphocytes (%) (Auto) 36.3, Monocytes (%) (Auto) 6.3, Eosinophils (%) (Auto) 3.5H, Basophils (%) (Auto) 0.7, Sodium Level 130L, Potassium Level 4.5, Chloride Level 95L, Carbon Dioxide Level 25, Anion Gap 10, Blood Urea Nitrogen 18, Creatinine 0.8, Estimat Glomerular Filtration Rate > 60, Glucose Level 319#H , Calcium Level 7.9L, Magnesium Level 1.7 Current Medications Medications (Trade) Dose Ordered Sig/Gabriel Route PRN Reason Start Time Stop Time Status Last Admin Dose Admin Acetaminophen (Tylenol) 650 mg Q4H PRN ORAL fever 04/20/16 07:15 05/20/16 07:14 Acetaminophen/ Hydrocodone Bitart ([place] 5/325) 1 tab Q6H PRN ORAL Moderate Pain (Pain Scale 4-6) 04/20/16 07:15 04/27/16 07:14 04/23/16 09:47 Al Hydroxide/Mg Hydroxide (Mylanta II) 30 ml Q6H PRN ORAL dyspepsia 04/20/16 07:15 05/20/16 07:14 Albuterol/ Ipratropium (DuoNeb 0.5-3(2.5)mg/3ml) 3 ml Q4HRT PRN HHN Shortness of Breath 04/20/16 07:15 04/25/16 07:14 Allopurinol (Zyloprim) 100 mg DAILY ORAL 04/20/16 09:00 05/20/16 08:59 04/23/16 09:46 Benazepril HCl (Lotensin) 10 mg DAILY ORAL 04/20/16 09:00 05/20/16 08:59 04/23/16 09:46 Ceftriaxone Sodium/Dextrose (Rocephin/D5W) 55 ml @ 110 mls/hr Q24H IVPB 04/21/16 01:00 04/28/16 00:59 04/23/16 02:20 Clonidine HCl (Catapres) 0.1 mg EVERY 6 HOURS ORAL 04/20/16 12:00 05/20/16 11:59 04/23/16 12:37 Clonidine HCl (Catapres) 0.1 mg Q4H PRN ORAL sbp more than 160 04/20/16 07:15 05/20/16 07:14 Dextrose (Dextrose 50%) STAT PRN IV Hypoglycemia 04/20/16 07:15 05/20/16 07:14 Glipizide 10 mg 10 mg BIAC ORAL 04/20/16 16:30 05/20/16 16:29 04/23/16 05:41 Heparin Sodium (Porcine) (Heparin 5000 units/ml) 5,000 units EVERY 12 HOURS SUBQ 04/20/16 09:00 05/20/16 08:59 04/23/16 09:49 Insulin Aspart (NovoLOG) BEFORE MEALS AND HS SUBQ 04/20/16 11:30 05/20/16 11:29 04/23/16 12:38 Insulin Aspart (NovoLOG) 10 units NOVOTIAC SUBQ 04/23/16 06:30 05/23/16 06:29 04/23/16 12:41 Insulin Detemir (Levemir) 20 units Q12HR SUBQ 04/23/16 09:00 05/23/16 08:59 04/23/16 09:48 Ketorolac Tromethamine (Toradol 30mg) 30 mg EVERY 6 HOURS PRN IV moderate pain 4-6 04/20/16 07:15 04/25/16 07:14 Morphine Sulfate (Morphine Sulfate) 2 mg Q4H PRN IVP severe pain 7-10 04/20/16 07:15 04/27/16 07:14 04/23/16 04:58 Nitroglycerin (Ntg) 0.4 mg Q5M X 3 DOSES PRN SL Prn Chest Pain 04/20/16 07:15 05/20/16 07:14 Ondansetron HCl (Zofran) 4 mg Q6H PRN IVP Nausea & Vomiting 04/20/16 07:15 05/20/16 07:14 Ondansetron HCl (Zofran) 4 mg Q6H PRN ORAL Nausea & Vomiting 04/20/16 07:15 05/20/16 07:14 Pantoprazole (Protonix) 40 mg ACBREAKFAST ORAL 04/21/16 06:30 05/20/16 08:59 04/23/16 05:41 Polyethylene Glycol (Miralax) 17 gm DAILY ORAL 04/20/16 09:00 05/20/16 08:59 Polyethylene Glycol (Miralax) 17 gm HSPRN PRN ORAL Constipation 04/20/16 07:15 05/20/16 07:14 Sodium Chloride (Sodium Chloride 1000ml bag) 1,000 ml @ 100 mls/hr Q10H IVLG 04/20/16 07:52 05/20/16 07:51 04/23/16 11:50 Tamsulosin HCl 0.4 mg 0.4 mg BEDTIME ORAL 04/20/16 21:00 05/20/16 20:59 04/22/16 21:05 Temazepam (Restoril) 15 mg HSPRN PRN ORAL Insomnia 04/20/16 07:15 04/27/16 07:14 04/21/16 22:34 Damon ([facility])Jina NP Apr 23, 2016 14:19
--- NOTE | 2016-04-23 14:50 | Internal Med Progress Note ---
Subjective Date of Service: Apr 23, 2016 Physician Name Lazaro Venegas Attending Physician Shailesh Martinez MD Current Medications Medications (Trade) Dose Ordered Sig/Gabriel Route PRN Reason Start Time Stop Time Status Last Admin Dose Admin Acetaminophen (Tylenol) 650 mg Q4H PRN ORAL fever 04/20/16 07:15 05/20/16 07:14 Acetaminophen/ Hydrocodone Bitart ([place] 5/325) 1 tab Q6H PRN ORAL Moderate Pain (Pain Scale 4-6) 04/20/16 07:15 04/27/16 07:14 04/23/16 09:47 Al Hydroxide/Mg Hydroxide (Mylanta II) 30 ml Q6H PRN ORAL dyspepsia 04/20/16 07:15 05/20/16 07:14 Albuterol/ Ipratropium (DuoNeb 0.5-3(2.5)mg/3ml) 3 ml Q4HRT PRN HHN Shortness of Breath 04/20/16 07:15 04/25/16 07:14 Allopurinol (Zyloprim) 100 mg DAILY ORAL 04/20/16 09:00 05/20/16 08:59 04/23/16 09:46 Benazepril HCl (Lotensin) 10 mg DAILY ORAL 04/20/16 09:00 05/20/16 08:59 04/23/16 09:46 Ceftriaxone Sodium/Dextrose (Rocephin/D5W) 55 ml @ 110 mls/hr Q24H IVPB 04/21/16 01:00 04/28/16 00:59 04/23/16 02:20 Clonidine HCl (Catapres) 0.1 mg EVERY 6 HOURS ORAL 04/20/16 12:00 05/20/16 11:59 04/23/16 12:37 Clonidine HCl (Catapres) 0.1 mg Q4H PRN ORAL sbp more than 160 04/20/16 07:15 05/20/16 07:14 Dextrose (Dextrose 50%) STAT PRN IV Hypoglycemia 04/20/16 07:15 05/20/16 07:14 Glipizide 10 mg 10 mg BIAC ORAL 04/20/16 16:30 05/20/16 16:29 04/23/16 05:41 Heparin Sodium (Porcine) (Heparin 5000 units/ml) 5,000 units EVERY 12 HOURS SUBQ 04/20/16 09:00 05/20/16 08:59 04/23/16 09:49 Insulin Aspart (NovoLOG) BEFORE MEALS AND HS SUBQ 04/20/16 11:30 05/20/16 11:29 04/23/16 12:38 Insulin Aspart (NovoLOG) 10 units NOVOTIAC SUBQ 04/23/16 06:30 05/23/16 06:29 04/23/16 12:41 Insulin Detemir (Levemir) 20 units Q12HR SUBQ 04/23/16 09:00 05/23/16 08:59 04/23/16 09:48 Ketorolac Tromethamine (Toradol 30mg) 30 mg EVERY 6 HOURS PRN IV moderate pain 4-6 04/20/16 07:15 04/25/16 07:14 Morphine Sulfate (Morphine Sulfate) 2 mg Q4H PRN IVP severe pain 7-10 04/20/16 07:15 04/27/16 07:14 04/23/16 04:58 Nitroglycerin (Ntg) 0.4 mg Q5M X 3 DOSES PRN SL Prn Chest Pain 04/20/16 07:15 05/20/16 07:14 Ondansetron HCl (Zofran) 4 mg Q6H PRN IVP Nausea & Vomiting 04/20/16 07:15 05/20/16 07:14 Ondansetron HCl (Zofran) 4 mg Q6H PRN ORAL Nausea & Vomiting 04/20/16 07:15 05/20/16 07:14 Pantoprazole (Protonix) 40 mg ACBREAKFAST ORAL 04/21/16 06:30 05/20/16 08:59 04/23/16 05:41 Polyethylene Glycol (Miralax) 17 gm DAILY ORAL 04/20/16 09:00 05/20/16 08:59 Polyethylene Glycol (Miralax) 17 gm HSPRN PRN ORAL Constipation 04/20/16 07:15 05/20/16 07:14 Sodium Chloride (Sodium Chloride 1000ml bag) 1,000 ml @ 100 mls/hr Q10H IVLG 04/20/16 07:52 05/20/16 07:51 04/23/16 11:50 Tamsulosin HCl 0.4 mg 0.4 mg BEDTIME ORAL 04/20/16 21:00 05/20/16 20:59 04/22/16 21:05 Temazepam (Restoril) 15 mg HSPRN PRN ORAL Insomnia 04/20/16 07:15 04/27/16 07:14 04/21/16 22:34 Allergies: Coded Allergies: No Known Allergies (Unverified , 12/31/11) ROS Limited/Unobtainable: No Constitutional: Reports: no symptoms HEENT: Reports: no symptoms Cardiovascular: Reports: no symptoms Respiratory: Reports: no symptoms Gastrointestinal/Abdominal: Reports: no symptoms Genitourinary: Reports: frequency Neurologic/Psychiatric: Reports: no symptoms Subjective 61 YO M admitted for frequency urination. Cover for Int Arun-Dr Martinez. Glucose values still 300-500's. Objective Last Vital Signs Date Time Temp Pulse Resp B/P Pulse Ox O2 Delivery O2 Flow Rate FiO2 04/23/16 12:37 147/89 04/23/16 12:08 97.3 61 15 99 Room Air Laboratory Tests Test 04/23/16 09:50 White Blood Count 5.1 K/UL (4.8-10.8) Red Blood Count 4.09 M/UL (4.70-6.10) L Hemoglobin 10.3 G/DL (14.2-18.0) L Hematocrit 33.4 % (42.0-52.0) L Mean Corpuscular Volume 82 FL (80-99) Mean Corpuscular Hemoglobin 25.2 PG (27.0-31.0) L Mean Corpuscular Hemoglobin Concent 30.9 G/DL (32.0-36.0) L Red Cell Distribution Width 15.4 % (11.6-14.8) H Platelet Count 175 K/UL (150-450) Mean Platelet Volume 6.8 FL (6.5-10.1) Neutrophils (%) (Auto) 53.3 % (45.0-75.0) Lymphocytes (%) (Auto) 36.3 % (20.0-45.0) Monocytes (%) (Auto) 6.3 % (1.0-10.0) Eosinophils (%) (Auto) 3.5 % (0.0-3.0) H Basophils (%) (Auto) 0.7 % (0.0-2.0) Sodium Level 130 mEQ/L (135-145) L Potassium Level 4.5 mEQ/L (3.4-4.9) Chloride Level 95 mEQ/L (98-107) L Carbon Dioxide Level 25 mEQ/L (20-30) Anion Gap 10 (5-15) Blood Urea Nitrogen 18 mg/dL (7-23) Creatinine 0.8 mg/dL (0.7-1.2) Estimat Glomerular Filtration Rate > 60 mL/min (>60) Glucose Level 319 mg/dL (74-106) #H Calcium Level 7.9 mg/dL (8.6-10.2) L Magnesium Level 1.7 mg/dL (1.7-2.5) Microbiology Date/Time Source Procedure Growth Status 04/20/16 20:00 Stool Stool Culture - Final NO SALMONELLA,SHIGELLA,OR CAMPYLOBACT... Complete Intake and Output 04/22/16 04/23/16 19:00 07:00 Intake Total 3100 ml 1610 ml Output Total 1500 ml 1050 ml Balance 1600 ml 560 ml Intake Oral 2000 ml 600 ml IV Total 1100 ml 1010 ml Output Urine Total 1500 ml 1050 ml # Voids 4 Objective General Appearance: no apparent distress, alert, thin EENT: PERRL/EOMI, normal ENT inspection Neck: non-tender, normal alignment, supple Cardiovascular: normal peripheral pulses, normal rate, regular rhythm, no gallop/murmur, no JVD Respiratory/Chest: chest wall non-tender, lungs clear, normal breath sounds, no respiratory distress, no accessory muscle use Abdomen: normal bowel sounds, non tender, soft, no organomegaly, no mass Extremities: normal range of motion Neurologic: rn residential II-XII grossly normal, no motor/sensory deficits Skin: normal pigmentation, warm/dry Assessment/Plan Problem List: (1) Uncontrolled diabetes mellitus Assessment & Plan: Add levemir BID; continue novolog sliding scale and glipizide. See endocrinology recs. (2) Urinary retention Assessment & Plan: See urology note. (3) UTI (urinary tract infection) Assessment & Plan: ESBL E. coli. Await ID consult. Cont ceftriaxone for now. Await urine culture results. (4) BPH (benign prostatic hypertrophy) Assessment & Plan: Continue flomax per urology. See urology recs. (5) Hypertension Assessment & Plan: Continue lotensin. (6) RIGHT FOOT VASCULAR ULCER Assessment & Plan: See podiatry note. (7) SUSPICION OF CHARCOT FOOT AND TOE DEFORMITY Status: not improved LAZARO VENEGAS Apr 23, 2016 14:50
--- NOTE | 2016-04-23 14:53 | Consultation ---
Consult Note Assessment/Plan ID Dic # [id number] ASSESSMENT: 60 y/o male with: // Probable UTI: ESBL E coli - h/o neurogenic bladder / urinary retention / BPH with chronic yan ( changed 09/24 ) - h/o VSE.faecalis, CONS, ESBL(+) E.coli, KPC-K.pneumoniae, C.albicans, tropicalis // Chronic RUE wound, not grossly infected - WCx S.aureus=colonizer - h/o BUE abscesses s/p I&D // Chronic HCV with elevated LFTs - GI following // Afebrile without leukocytosis // Uncontrolled DM - HbA1c 11.1% // MRSA, VRE colonized // NKDA // Full Code PLAN: - change AB Rx to Merrem d# 1 ( 09/26 SP levaquin d# 1 ) - monitor CBC, temperatures - monitor BMP - urology f/u Thank you PEDRO ROGERS M.D. Apr 23, 2016 14:53
[2016-04-23] MEDS ORDERED: Tubing IV Secondary IV ONE (15:19)
[2016-04-23] MEDS ORDERED: NS 550ML IV ONE (15:19)
[2016-04-23 16:10] VITALS: BP 127/76
--- NOTE | 2016-04-23 17:02 | Diagnostic Imaging Report ---
APPROVED REPORT CPT Code: 19736 Symptoms Comments: Weakness, numbness Comments History of gout RIGHT LEG: Common femoral artery waveform analysis is within normal limits at rest. Color flow duplex sonography reveals calcification throughout the superficial femoral and popliteal arteries. There is no evidence of significant stenosis or occlusion within these segments. The tibial arteries are also mildly calcified. Doppler tibial artery waveform analysis is compatible with mild ischemia at rest. The tibioperoneal trunk was not well visualized. LEFT LEG: Common femoral artery waveform analysis is within normal limits at rest. Color flow duplex sonography reveals calcification throughout the superficial femoral and popliteal arteries. There is no evidence of significant stenosis or occlusion within these segments. The tibioperoneal trunk is patent. The tibial arteries are also mildly calcified.
--- NOTE | 2016-04-23 17:08 | Diagnostic Imaging Report ---
APPROVED REPORT CPT Code: 15494 Present Symptoms Lower Extremity Edema: BILATERAL: Imaging reveals a patent deep venous system bilaterally. There is no evidence of thrombus within the femoral, popliteal or tibial segments. The greater saphenous veins are also within normal limits. Doppler indicates normal spontaneous flow within these segments.
[2016-04-23 20:00] VITALS: BP 136/84
[2016-04-23] MEDS: Tamsulosin 0.4mg cap ORAL SCH (20:51)
--- NOTE | 2016-04-23 21:42 | Podiatric Progress Note ---
Assessment/Plan Patient Gill Caraballo is a 61 year old male who was admitted on Apr 20, 2016 at 01:45 with UTI Problems: (1) Diabetic foot ulcer (2) Diabetic neuropathy (3) Hallux valgus (acquired), right foot (4) Hallux valgus (acquired), left foot (5) Hammer toes of both feet Assessment/Plan - Continue daily dressing changes - Arterial studies show mild ischemia. Patient will benefit from correction of hallux valgus to offload the 2nd toe ulceration after patient has been medically optimized - Imaging studies non diagnostic for osteo Subjective Reason for consult Bilateral foot ulceration Allergies: Coded Allergies: No Known Allergies (Unverified , 12/31/11) Subjective No pain, nausea, vomiting, fevers, or chills Objective Exam Last 24 Hour Vital Signs Date Time Temp Pulse Resp B/P Pulse Ox O2 Delivery O2 Flow Rate FiO2 04/23/16 19:03 127/76 04/23/16 16:10 97.9 67 14 127/76 98 Room Air 04/23/16 12:37 147/89 04/23/16 12:08 97.3 61 15 147/89 99 Room Air 04/23/16 09:46 142/76 04/23/16 08:00 97.7 75 16 142/76 99 04/23/16 05:42 155/88 04/23/16 04:00 98.1 63 18 155/88 97 Room Air 04/23/16 00:29 139/81 04/23/16 00:00 97.2 68 18 139/81 98 Room Air Laboratory Tests Test 04/23/16 09:50 White Blood Count 5.1 K/UL (4.8-10.8) Red Blood Count 4.09 M/UL (4.70-6.10) L Hemoglobin 10.3 G/DL (14.2-18.0) L Hematocrit 33.4 % (42.0-52.0) L Mean Corpuscular Volume 82 FL (80-99) Mean Corpuscular Hemoglobin 25.2 PG (27.0-31.0) L Mean Corpuscular Hemoglobin Concent 30.9 G/DL (32.0-36.0) L Red Cell Distribution Width 15.4 % (11.6-14.8) H Platelet Count 175 K/UL (150-450) Mean Platelet Volume 6.8 FL (6.5-10.1) Neutrophils (%) (Auto) 53.3 % (45.0-75.0) Lymphocytes (%) (Auto) 36.3 % (20.0-45.0) Monocytes (%) (Auto) 6.3 % (1.0-10.0) Eosinophils (%) (Auto) 3.5 % (0.0-3.0) H Basophils (%) (Auto) 0.7 % (0.0-2.0) Sodium Level 130 mEQ/L (135-145) L Potassium Level 4.5 mEQ/L (3.4-4.9) Chloride Level 95 mEQ/L (98-107) L Carbon Dioxide Level 25 mEQ/L (20-30) Anion Gap 10 (5-15) Blood Urea Nitrogen 18 mg/dL (7-23) Creatinine 0.8 mg/dL (0.7-1.2) Estimat Glomerular Filtration Rate > 60 mL/min (>60) Glucose Level 319 mg/dL (74-106) #H Calcium Level 7.9 mg/dL (8.6-10.2) L Magnesium Level 1.7 mg/dL (1.7-2.5) Microbiology Date/Time Source Procedure Growth Status 04/20/16 20:00 Stool Stool Culture - Final NO SALMONELLA,SHIGELLA,OR CAMPYLOBACT... Complete 04/20/16 14:30 Urine,Clean Catch Urine Culture - Final Escherichia Coli - Esbl Mixed Gram Positive Organism Complete Exam Narrative Bilateral foot ulceration of the dorsal 2nd toe. Wound probes to joint capsule. No purulence or malodor. Severe hallux valgus deformity and hammertoes bilaterally. Dermatological Wound Assessment : Exudate Amount: None Eidl Monroy DPM Apr 23, 2016 21:42
[2016-04-24] VITALS (7 sets, daily range): BP systolic 123–155; BP diastolic 71–99
--- NOTE | 2016-04-24 00:07 | Consultation ---
DATE OF CONSULTATION: INFECTIOUS DISEASE CONSULTATION CONSULTING PHYSICIAN: Kirt Bloom M.D. REQUESTING PHYSICIAN: Cj Luevano M.D. REASON FOR CONSULTATION: Evaluation of the patient for ESBL urinary tract infection and antibiotic management. HISTORY OF PRESENT ILLNESS: The patient is a 61-year-old male who has been admitted to this medical center and the patient was found to have positive urine culture for ESBL E. coli. The patient is complaining of having dysuria. Infectious Disease consultation requested for further evaluation of the patient's antibiotic management. The patient initially was admitted with increase of urinary frequency. The patient never had any cough, runny nose, or sore throat. PAST MEDICAL HISTORY: 1. History of diabetes. 2. History of MRSA and VRE colonization. 3. History of recurrent urinary tract infection. 4. History of chronic right upper extremity wound. 5. History of chronic hepatitis C. 6. History of transurethral resection of prostate in the past x2 as per patient. ALLERGIES: No known drug allergies. SOCIAL HISTORY: Homeless. FAMILY HISTORY: Noncontributory. REVIEW OF SYSTEMS: HEENT: No recent change in vision or hearing. Pulmonary: The patient does not feel short of breath. Abdomen: No nausea or vomiting. Genitourinary: As mentioned above. Neurologic: No history of seizure. PHYSICAL EXAMINATION: VITAL SIGNS: Temperature 97.2 degrees, blood pressure 107/89, pulse 61, and respiratory rate 18. HEENT: Mild pale conjunctivae. No icterus. NECK: No lymphadenopathy. CHEST: Coarse breathing sounds. HEART: S1 and S2. ABDOMEN: Soft and nontender. EXTREMITIES: No cyanosis. NEUROLOGIC: Awake and alert. LABORATORY AND DIAGNOSTIC DATA: White blood cells 5, hemoglobin 10, and platelets 175,000. UA shows 20 to 30 white blood cells. BUN 18, creatinine 0.8. Alkaline phosphatase was 139 and AST and ALT unremarkable. Urine culture is growing ESBL E. coli and gram-positive organisms. Chest x-ray, no acute process. ASSESSMENT: The patient is a 61-year-old male with multiple medical problems, who was admitted to this medical center. The patient has been complaining of dysuria. The patient's urine culture is growing extended-spectrum beta-lactamase Escherichia coli. The patient is symptomatic and despite the low of the urine culture, the patient would benefit from antibiotic treatment. PLAN: 1. We will change antibiotics to meropenem. 2. Monitor CBC and BMP. 3. Follow the patient's clinical course. Based on those, we will do further recommendations. Thank you, Dr. Luevano, for allowing me to participate in the care of this patient. I will follow the patient during this hospitalization. Kirt Bloom M.D. DR: EFRAIN JOB#: [id number] CC:
[2016-04-24] MEDS: NovoLOG Insulin Flexpen SUBQ SCH ×7 (06:22→20:50)
[2016-04-24] MEDS: GlipiZIDE 5mg tab ORAL SCH ×3 (06:31→16:40)
[2016-04-24] MEDS: Norco 5mg/325mg tab ORAL PRN ×3 (06:31→19:02)
[2016-04-24] MEDS: Miralax 17gm pkt ORAL SCH (08:43)
[2016-04-24] MEDS: Heparin 5000 units/ml inj SUBQ SCH ×2 (08:44→20:06)
[2016-04-24 08:45] LABS: ANION GAP 13 (5-15); CALCIUM 8.5 mg/dL (8.6-10.2); CARBON DIOXIDE 23 mEQ/L (20-30); CHLORIDE 98 mEQ/L (98-107); CREATININE 0.8 mg/dL (0.7-1.2); GLOMERULAR FILTRATION RATE > 60 mL/min (>60); HEMOLYSIS 24; SODIUM 134 mEQ/L (135-145)
[2016-04-24] MEDS: Benazepril 10mg tab ORAL SCH (08:45)
[2016-04-24] MEDS: Levemir Flexpen SUBQ SCH ×2 (08:45→20:49)
[2016-04-24] MEDS: Allopurinol 100mg Tab ORAL SCH (08:46)
[2016-04-24] MEDS ORDERED: Levofloxacin 500mg tab ORAL SCH (09:00)
--- NOTE | 2016-04-24 10:44 | Urology Progress Note ---
Assessment/Plan Assessment/Plan 1. Benign prostatic hypertrophy history. 2. History of lower urinary tract symptoms. 3. Probable neurogenic bladder. 4. Hematuria. 5. Pyuria. 6. Proteinuria. cont with flomax abx as ordered, per ID renal fxn stable Subjective Allergies: Coded Allergies: No Known Allergies (Unverified , 12/31/11) Subjective voiding Objective Last 24 Hour Vital Signs Date Time Temp Pulse Resp B/P Pulse Ox O2 Delivery O2 Flow Rate FiO2 04/24/16 08:45 123/72 04/24/16 08:15 98.1 79 16 123/72 98 Room Air 04/24/16 07:57 21 04/24/16 07:57 78 18 98 Room Air 21 04/24/16 07:56 74 18 96 Room Air 21 04/24/16 07:20 73 18 Room Air 21 04/24/16 06:32 153/84 04/24/16 06:17 153/84 04/24/16 04:00 97.9 67 20 155/99 99 Room Air 04/24/16 00:09 144/88 04/24/16 00:00 98.1 80 22 144/88 97 Room Air 04/23/16 20:00 99.0 72 20 136/84 95 Room Air 04/23/16 19:03 127/76 04/23/16 16:10 97.9 67 14 127/76 98 Room Air 04/23/16 12:37 147/89 04/23/16 12:08 97.3 61 15 147/89 99 Room Air Intake and Output 04/23/16 04/24/16 19:00 07:00 Intake Total 2000 ml 960 ml Output Total 800 ml 2000 ml Balance 1200 ml -1040 ml Intake Oral 1600 ml 960 ml IV Total 400 ml Output Urine Total 800 ml 2000 ml # Bowel Movements 2 2 Microbiology Date/Time Source Procedure Growth Status 04/20/16 20:00 Stool Stool Culture - Final NO SALMONELLA,SHIGELLA,OR CAMPYLOBACT... Complete 04/20/16 14:30 Urine,Clean Catch Urine Culture - Final Escherichia Coli - Esbl Mixed Gram Positive Organism Complete Current Medications Medications (Trade) Dose Ordered Sig/Gabriel Route PRN Reason Start Time Stop Time Status Last Admin Dose Admin Acetaminophen (Tylenol) 650 mg Q4H PRN ORAL fever 04/20/16 07:15 05/20/16 07:14 Acetaminophen/ Hydrocodone Bitart ([place] 5/325) 1 tab Q6H PRN ORAL Moderate Pain (Pain Scale 4-6) 04/20/16 07:15 04/27/16 07:14 04/24/16 06:31 Al Hydroxide/Mg Hydroxide (Mylanta II) 30 ml Q6H PRN ORAL dyspepsia 04/20/16 07:15 05/20/16 07:14 Albuterol/ Ipratropium (DuoNeb 0.5-3(2.5)mg/3ml) 3 ml Q4HRT PRN HHN Shortness of Breath 04/20/16 07:15 04/25/16 07:14 04/24/16 07:59 Allopurinol (Zyloprim) 100 mg DAILY ORAL 04/20/16 09:00 05/20/16 08:59 04/24/16 08:46 Benazepril HCl (Lotensin) 10 mg DAILY ORAL 04/20/16 09:00 05/20/16 08:59 04/24/16 08:45 Clonidine HCl (Catapres) 0.1 mg EVERY 6 HOURS ORAL 04/20/16 12:00 05/20/16 11:59 04/24/16 06:32 Clonidine HCl (Catapres) 0.1 mg Q4H PRN ORAL sbp more than 160 04/20/16 07:15 05/20/16 07:14 Dextrose (Dextrose 50%) STAT PRN IV Hypoglycemia 04/20/16 07:15 05/20/16 07:14 Glipizide (Glucotrol) 10 mg BIAC ORAL 04/20/16 16:30 05/20/16 16:29 04/24/16 06:31 Heparin Sodium (Porcine) (Heparin 5000 units/ml) 5,000 units EVERY 12 HOURS SUBQ 04/20/16 09:00 05/20/16 08:59 04/24/16 08:44 Insulin Aspart (NovoLOG) BEFORE MEALS AND HS SUBQ 04/20/16 11:30 05/20/16 11:29 04/24/16 06:22 Insulin Aspart (NovoLOG) 10 units NOVOTIAC SUBQ 04/23/16 06:30 05/23/16 06:29 04/24/16 06:22 Insulin Detemir (Levemir) 20 units Q12HR SUBQ 04/23/16 09:00 05/23/16 08:59 04/24/16 08:45 Ketorolac Tromethamine (Toradol 30mg) 30 mg EVERY 6 HOURS PRN IV moderate pain 4-6 04/20/16 07:15 04/25/16 07:14 Levofloxacin (Levaquin) 500 mg DAILY ORAL 04/24/16 09:00 05/01/16 08:59 04/24/16 08:46 Morphine Sulfate (Morphine Sulfate) 2 mg Q4H PRN IVP severe pain 7-10 04/20/16 07:15 04/27/16 07:14 04/23/16 04:58 Nitroglycerin (Ntg) 0.4 mg Q5M X 3 DOSES PRN SL Prn Chest Pain 04/20/16 07:15 05/20/16 07:14 Ondansetron HCl (Zofran) 4 mg Q6H PRN IVP Nausea & Vomiting 04/20/16 07:15 05/20/16 07:14 Ondansetron HCl (Zofran) 4 mg Q6H PRN ORAL Nausea & Vomiting 04/20/16 07:15 05/20/16 07:14 Pantoprazole (Protonix) 40 mg ACBREAKFAST ORAL 04/21/16 06:30 05/20/16 08:59 04/24/16 06:31 Polyethylene Glycol (Miralax) 17 gm DAILY ORAL 04/20/16 09:00 05/20/16 08:59 Polyethylene Glycol (Miralax) 17 gm HSPRN PRN ORAL Constipation 04/20/16 07:15 05/20/16 07:14 Tamsulosin HCl (Flomax) 0.4 mg BEDTIME ORAL 04/20/16 21:00 05/20/16 20:59 04/23/16 20:51 Temazepam (Restoril) 15 mg HSPRN PRN ORAL Insomnia 04/20/16 07:15 04/27/16 07:14 04/23/16 20:51 Laboratory Tests 04/24/16 07:00: Sodium Level 134L, Potassium Level 5.0H, Chloride Level 98, Carbon Dioxide Level 23, Anion Gap 13, Blood Urea Nitrogen 19, Creatinine 0.8, Estimat Glomerular Filtration Rate > 60, Glucose Level 314H, Calcium Level 8.5L Height (Feet): 6 Height (Inches): 2.00 Weight (Pounds): 170 Objective exam stable BELA OCONNOR Apr 24, 2016 10:44
--- NOTE | 2016-04-24 12:08 | Pulmonology Progress Note ---
Assessment/Plan Assessment/Plan ASSESSMENT DOOC UTI urinary retention BPH HTN chronic hep C anemia of chronic disease decub ulcers ( sacral and Lt ischial st 3)- POA bilateral foot ulceration r/o OM PLAN OF CARE MS floor BS management with long acting Levemir ( increased dose and frequency), Glipizide and SS of insulin prn , watch for hypoglycemia [id number] -grossly not a goal endo follows abx, urine cx +E coli ESBL, stool cx negative O2, HHN prn CXR negative CT head negative for acute changes lipid panel and TSH stable IVF urology eval noted, monitor HH, stable at baseline, wound care as per wound nurse recommendation podiatry eval noted X ray B foot non diagnostic for OM, significant alignment abnormalities Arterial duplex pending wound care for foot ulcers- as per podiatry recommendations DVT, GI prophylaxis PT/OT dc plan as per PMD case discussed and evaluated by supervising physician Subjective Allergies: Coded Allergies: No Known Allergies (Unverified , 12/31/11) Subjective afebrile, no leucocytosis denies chest pain, SOB on RA sat stable Objective Last 24 Hour Vital Signs Date Time Temp Pulse Resp B/P Pulse Ox O2 Delivery O2 Flow Rate FiO2 04/24/16 11:59 98.2 66 14 134/82 100 Room Air 04/24/16 08:45 123/72 04/24/16 08:15 98.1 79 16 123/72 98 Room Air 04/24/16 07:57 21 04/24/16 07:57 78 18 98 Room Air 04/24/16 07:56 74 18 96 Room Air 04/24/16 07:20 73 18 Room Air 04/24/16 06:32 153/84 04/24/16 06:17 153/84 04/24/16 04:00 97.9 67 20 155/99 99 Room Air 04/24/16 00:09 144/88 04/24/16 00:00 98.1 80 22 144/88 97 Room Air 04/23/16 20:00 99.0 72 20 136/84 95 Room Air 04/23/16 19:03 127/76 04/23/16 16:10 97.9 67 14 127/76 98 Room Air 04/23/16 12:37 147/89 04/23/16 12:08 97.3 61 15 147/89 99 Room Air Intake and Output 04/23/16 04/24/16 19:00 07:00 Intake Total 2000 ml 960 ml Output Total 800 ml 2000 ml Balance 1200 ml -1040 ml Intake Oral 1600 ml 960 ml IV Total 400 ml Output Urine Total 800 ml 2000 ml # Bowel Movements 2 2 Objective General Appearance: no acute distress, awake, alert, with periods of confusion HEENT: normocephalic, atraumatic, anicteric, mucous membranes moist Respiratory/Chest: lungs clear, normal breath sounds, no respiratory distress Cardiovascular: normal peripheral pulses, normal rate Abdomen: normal bowel sounds, soft, non tender, non distended Extremities: bilateral foot ulcers Skin: other - sacral and L ischial decub st 3 , POA Neurologic/Psychiatric: abnormal gait, alert, responsive Musculoskeletal: atrophy - BLE Laboratory Tests 04/24/16 07:00: Sodium Level 134L, Potassium Level 5.0H, Chloride Level 98, Carbon Dioxide Level 23, Anion Gap 13, Blood Urea Nitrogen 19, Creatinine 0.8, Estimat Glomerular Filtration Rate > 60, Glucose Level 314H, Calcium Level 8.5L Current Medications Medications (Trade) Dose Ordered Sig/Gabriel Route PRN Reason Start Time Stop Time Status Last Admin Dose Admin Acetaminophen (Tylenol) 650 mg Q4H PRN ORAL fever 04/20/16 07:15 05/20/16 07:14 Acetaminophen/ Hydrocodone Bitart ([place] 5/325) 1 tab Q6H PRN ORAL Moderate Pain (Pain Scale 4-6) 04/20/16 07:15 04/27/16 07:14 04/24/16 06:31 Al Hydroxide/Mg Hydroxide (Mylanta II) 30 ml Q6H PRN ORAL dyspepsia 04/20/16 07:15 05/20/16 07:14 Albuterol/ Ipratropium (DuoNeb 0.5-3(2.5)mg/3ml) 3 ml Q4HRT PRN HHN Shortness of Breath 04/20/16 07:15 04/25/16 07:14 04/24/16 07:59 Allopurinol (Zyloprim) 100 mg DAILY ORAL 04/20/16 09:00 05/20/16 08:59 04/24/16 08:46 Benazepril HCl (Lotensin) 10 mg DAILY ORAL 04/20/16 09:00 05/20/16 08:59 04/24/16 08:45 Clonidine HCl (Catapres) 0.1 mg EVERY 6 HOURS ORAL 04/20/16 12:00 05/20/16 11:59 04/24/16 06:32 Clonidine HCl (Catapres) 0.1 mg Q4H PRN ORAL sbp more than 160 04/20/16 07:15 05/20/16 07:14 Dextrose (Dextrose 50%) STAT PRN IV Hypoglycemia 04/20/16 07:15 05/20/16 07:14 Glipizide (Glucotrol) 10 mg BIAC ORAL 04/20/16 16:30 05/20/16 16:29 04/24/16 06:31 Heparin Sodium (Porcine) (Heparin 5000 units/ml) 5,000 units EVERY 12 HOURS SUBQ 04/20/16 09:00 05/20/16 08:59 04/24/16 08:44 Insulin Aspart (NovoLOG) BEFORE MEALS AND HS SUBQ 04/20/16 11:30 05/20/16 11:29 04/24/16 06:22 Insulin Aspart (NovoLOG) 10 units NOVOTIAC SUBQ 04/23/16 06:30 05/23/16 06:29 04/24/16 06:22 Insulin Detemir (Levemir) 20 units Q12HR SUBQ 04/23/16 09:00 05/23/16 08:59 04/24/16 08:45 Ketorolac Tromethamine (Toradol 30mg) 30 mg EVERY 6 HOURS PRN IV moderate pain 4-6 04/20/16 07:15 04/25/16 07:14 Levofloxacin (Levaquin) 500 mg DAILY ORAL 04/24/16 09:00 05/01/16 08:59 04/24/16 08:46 Morphine Sulfate (Morphine Sulfate) 2 mg Q4H PRN IVP severe pain 7-10 04/20/16 07:15 04/27/16 07:14 04/23/16 04:58 Nitroglycerin (Ntg) 0.4 mg Q5M X 3 DOSES PRN SL Prn Chest Pain 04/20/16 07:15 05/20/16 07:14 Ondansetron HCl (Zofran) 4 mg Q6H PRN IVP Nausea & Vomiting 1/18/17 07:15 05/20/16 07:14 Ondansetron HCl (Zofran) 4 mg Q6H PRN ORAL Nausea & Vomiting 04/20/16 07:15 05/20/16 07:14 Pantoprazole (Protonix) 40 mg ACBREAKFAST ORAL 04/21/16 06:30 05/20/16 08:59 04/24/16 06:31 Polyethylene Glycol (Miralax) 17 gm DAILY ORAL 04/20/16 09:00 05/20/16 08:59 Polyethylene Glycol (Miralax) 17 gm HSPRN PRN ORAL Constipation 04/20/16 07:15 05/20/16 07:14 Tamsulosin HCl (Flomax) 0.4 mg BEDTIME ORAL 04/20/16 21:00 05/20/16 20:59 04/23/16 20:51 Temazepam (Restoril) 15 mg HSPRN PRN ORAL Insomnia 04/20/16 07:15 04/27/16 07:14 04/23/16 20:51 [facility]Jina NP Apr 24, 2016 12:08
[2016-04-24] MEDS: Meropenem 1gm/NS 110ml IVPB SCH ×4 (14:00→21:24)
[2016-04-24 15:36] LABS: BASOPHILS % (AUTO) 0.5 % (0.0-2.0); EOSINOPHILS % (AUTO) 2.3 % (0.0-3.0); MEAN CORPUSCULAR HEMOGLOBIN 25.7 PG (27.0-31.0); MEAN CORPUSCULAR HGB CONC 31.2 G/DL (32.0-36.0); MEAN CORPUSCULAR VOLUME 82 FL (80-99); MEAN PLATELET VOLUME 6.5 FL (6.5-10.1); MONOCYTES % (AUTO) 7.9 % (1.0-10.0); NEUTROPHILS % (AUTO) 55.3 % (45.0-75.0); PLATELET COUNT 173 K/UL (150-450); RED BLOOD COUNT 3.84 M/UL (4.70-6.10); RED CELL DISTRIBUTION WIDTH 15.7 % (11.6-14.8)
--- NOTE | 2016-04-24 18:11 | Internal Med Progress Note ---
Subjective Date of Service: Apr 24, 2016 Physician Name Cj Venegas Attending Physician Shailesh Martinez MD Current Medications Medications (Trade) Dose Ordered Sig/Gabriel Route PRN Reason Start Time Stop Time Status Last Admin Dose Admin Acetaminophen (Tylenol) 650 mg Q4H PRN ORAL fever 04/20/16 07:15 05/20/16 07:14 Acetaminophen/ Hydrocodone Bitart ([employer] 5/325) 1 tab Q6H PRN ORAL Moderate Pain (Pain Scale 4-6) 04/20/16 07:15 04/27/16 07:14 04/24/16 13:03 Al Hydroxide/Mg Hydroxide (Mylanta II) 30 ml Q6H PRN ORAL dyspepsia 04/20/16 07:15 05/20/16 07:14 Albuterol/ Ipratropium (DuoNeb 0.5-3(2.5)mg/3ml) 3 ml Q4HRT PRN HHN Shortness of Breath 04/20/16 07:15 04/25/16 07:14 04/24/16 07:59 Allopurinol (Zyloprim) 100 mg DAILY ORAL 04/20/16 09:00 05/20/16 08:59 04/24/16 08:46 Benazepril HCl (Lotensin) 10 mg DAILY ORAL 04/20/16 09:00 05/20/16 08:59 04/24/16 08:45 Clonidine HCl (Catapres) 0.1 mg EVERY 6 HOURS ORAL 04/20/16 12:00 05/20/16 11:59 04/24/16 13:03 Clonidine HCl (Catapres) 0.1 mg Q4H PRN ORAL sbp more than 160 04/20/16 07:15 05/20/16 07:14 Dextrose (Dextrose 50%) STAT PRN IV Hypoglycemia 04/20/16 07:15 05/20/16 07:14 Glipizide (Glucotrol) 10 mg BIAC ORAL 04/20/16 16:30 05/20/16 16:29 04/24/16 16:40 Heparin Sodium (Porcine) (Heparin 5000 units/ml) 5,000 units EVERY 12 HOURS SUBQ 04/20/16 09:00 05/20/16 08:59 04/24/16 08:44 Heparin Sodium/ Sodium Chloride (Heparin 2000 units/Ns 1000ml premix) 2,000 unit ONCE PRN INJ PICC LINE PLACEMENT 04/25/16 06:00 04/25/16 18:00 Insulin Aspart (NovoLOG) BEFORE MEALS AND HS SUBQ 04/20/16 11:30 05/20/16 11:29 04/24/16 16:31 Insulin Aspart 10 units 10 units NOVOTIAC SUBQ 04/23/16 06:30 05/23/16 06:29 04/24/16 16:31 Insulin Detemir (Levemir) 30 units Q12HR SUBQ 04/24/16 21:00 05/24/16 20:59 Ketorolac Tromethamine (Toradol 30mg) 30 mg EVERY 6 HOURS PRN IV moderate pain 4-6 04/20/16 07:15 04/25/16 07:14 Lidocaine HCl (Xylocaine 1% 30ml) 30 ml ONCE PRN INJ PICC LINE PLACEMENT 04/25/16 06:00 04/25/16 18:00 Meropenem/Sodium Chloride (Merrem/Sodium Chloride) 110 ml @ 220 mls/hr Q8HR IVPB 04/24/16 14:00 04/29/16 13:59 Morphine Sulfate (Morphine Sulfate) 2 mg Q4H PRN IVP severe pain 7-10 04/20/16 07:15 04/27/16 07:14 04/23/16 04:58 Nitroglycerin (Ntg) 0.4 mg Q5M X 3 DOSES PRN SL Prn Chest Pain 04/20/16 07:15 05/20/16 07:14 Ondansetron HCl (Zofran) 4 mg Q6H PRN IVP Nausea & Vomiting 04/20/16 07:15 05/20/16 07:14 Ondansetron HCl (Zofran) 4 mg Q6H PRN ORAL Nausea & Vomiting 04/20/16 07:15 05/20/16 07:14 Pantoprazole (Protonix) 40 mg ACBREAKFAST ORAL 04/21/16 06:30 05/20/16 08:59 04/24/16 06:31 Polyethylene Glycol (Miralax) 17 gm DAILY ORAL 04/20/16 09:00 05/20/16 08:59 Polyethylene Glycol (Miralax) 17 gm HSPRN PRN ORAL Constipation 04/20/16 07:15 05/20/16 07:14 Sodium Bicarbonate (Sodium Bicarbonate) 50 ml ONCE PRN IV PICC LINE PLACEMENT 04/25/16 06:00 04/25/16 18:00 Tamsulosin HCl (Flomax) 0.4 mg BEDTIME ORAL 04/20/16 21:00 05/20/16 20:59 04/23/16 20:51 Temazepam (Restoril) 15 mg HSPRN PRN ORAL Insomnia 04/20/16 07:15 04/27/16 07:14 04/23/16 20:51 Allergies: Coded Allergies: No Known Allergies (Unverified , 12/31/11) ROS Limited/Unobtainable: No Constitutional: Reports: no symptoms HEENT: Reports: no symptoms Cardiovascular: Reports: no symptoms Respiratory: Reports: no symptoms Gastrointestinal/Abdominal: Reports: no symptoms Genitourinary: Reports: frequency Neurologic/Psychiatric: Reports: no symptoms Subjective 61 YO M admitted for frequency urination. Cover for Int Med-Dr Martinez. Meropenem not started; pt refused IV Objective Last Vital Signs Date Time Temp Pulse Resp B/P Pulse Ox O2 Delivery O2 Flow Rate FiO2 04/24/16 16:23 98.1 71 15 132/71 100 04/24/16 11:59 Room Air 04/24/16 07:57 21 Laboratory Tests Test 04/24/16 07:00 04/24/16 15:15 Sodium Level 134 mEQ/L (135-145) L Potassium Level 5.0 mEQ/L (3.4-4.9) H Chloride Level 98 mEQ/L (98-107) Carbon Dioxide Level 23 mEQ/L (20-30) Anion Gap 13 (5-15) Blood Urea Nitrogen 19 mg/dL (7-23) Creatinine 0.8 mg/dL (0.7-1.2) Estimat Glomerular Filtration Rate > 60 mL/min (>60) Glucose Level 314 mg/dL (74-106) H Calcium Level 8.5 mg/dL (8.6-10.2) L White Blood Count 5.0 K/UL (4.8-10.8) Red Blood Count 3.84 M/UL (4.70-6.10) L Hemoglobin 9.9 G/DL (14.2-18.0) L Hematocrit 31.7 % (42.0-52.0) L Mean Corpuscular Volume 82 FL (80-99) Mean Corpuscular Hemoglobin 25.7 PG (27.0-31.0) L Mean Corpuscular Hemoglobin Concent 31.2 G/DL (32.0-36.0) L Red Cell Distribution Width 15.7 % (11.6-14.8) H Platelet Count 173 K/UL (150-450) Mean Platelet Volume 6.5 FL (6.5-10.1) Neutrophils (%) (Auto) 55.3 % (45.0-75.0) Lymphocytes (%) (Auto) 34.0 % (20.0-45.0) Monocytes (%) (Auto) 7.9 % (1.0-10.0) Eosinophils (%) (Auto) 2.3 % (0.0-3.0) Basophils (%) (Auto) 0.5 % (0.0-2.0) Intake and Output 04/23/16 04/24/16 19:00 07:00 Intake Total 2000 ml 960 ml Output Total 800 ml 2000 ml Balance 1200 ml -1040 ml Intake Oral 1600 ml 960 ml IV Total 400 ml Output Urine Total 800 ml 2000 ml # Bowel Movements 2 2 Objective General Appearance: no apparent distress, alert, thin EENT: PERRL/EOMI, normal ENT inspection Neck: non-tender, normal alignment, supple Cardiovascular: normal peripheral pulses, normal rate, regular rhythm, no gallop/murmur, no JVD Respiratory/Chest: chest wall non-tender, lungs clear, normal breath sounds, no respiratory distress, no accessory muscle use Abdomen: normal bowel sounds, non tender, soft, no organomegaly, no mass Extremities: normal range of motion 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 See endocrinology recs. (2) Urinary retention Assessment & Plan: See urology note. (3) UTI (urinary tract infection) Assessment & Plan: ESBL E. coli. See ID consult. Meropenem not started; patient refused IV (4) BPH (benign prostatic hypertrophy) Assessment & Plan: Continue flomax per urology. See urology recs. (5) Hypertension Assessment & Plan: Continue lotensin. (6) RIGHT FOOT VASCULAR ULCER Assessment & Plan: See podiatry note. (7) SUSPICION OF CHARCOT FOOT AND TOE DEFORMITY Status: progressing CJ VENEGAS Apr 24, 2016 18:11
[2016-04-24] MEDS: Tamsulosin 0.4mg cap ORAL SCH (20:48)
--- NOTE | 2016-04-24 20:57 | Podiatric Progress Note ---
Assessment/Plan Patient Gill Caraballo is a 61 year old male who was admitted on Apr 20, 2016 at 01:45 with UTI Problems: (1) Diabetic foot ulcer (2) Diabetic neuropathy (3) Hallux valgus (acquired), right foot (4) Hallux valgus (acquired), left foot (5) Hammer toes of both feet Assessment/Plan - Bilateral foot ulcers. Not clinically infected. Wound is caused by severe hallux valgus deformity with dislocated hallux overlapping the 2nd toe and causing a pressure ulcer on the 2nd toe. Patient will benefit from surgical intervention to offload the ulcers once he is medically optimized. Patient currently has a UTI and his diabetes is poorly controlled. - Continue daily dressing changes with added padding between the 1st and 2nd toes to decrease pressure on the 2nd toe ulcer - Monitor feet daily. Patient educated about diabetic foot care Subjective Reason for consult Bilateral foot diabetic foot ulcers Allergies: Coded Allergies: No Known Allergies (Unverified , 12/31/11) Subjective Patient states no pedal pain, nausea, vomiting, fevers, or chills Objective Exam Last 24 Hour Vital Signs Date Time Temp Pulse Resp B/P Pulse Ox O2 Delivery O2 Flow Rate FiO2 04/24/16 20:07 97.7 75 18 132/75 96 Room Air 04/24/16 18:13 132/71 04/24/16 16:23 98.1 71 15 132/71 100 04/24/16 13:03 134/82 04/24/16 11:59 98.2 66 14 134/82 100 Room Air 04/24/16 08:45 123/72 04/24/16 08:15 98.1 79 16 123/72 98 Room Air 04/24/16 07:57 21 04/24/16 07:57 78 18 98 Room Air 21 04/24/16 07:56 74 18 96 Room Air 21 04/24/16 07:20 73 18 Room Air 21 04/24/16 06:32 153/84 04/24/16 06:17 153/84 04/24/16 04:00 97.9 67 20 155/99 99 Room Air 04/24/16 00:09 144/88 04/24/16 00:00 98.1 80 22 144/88 97 Room Air Laboratory Tests Test 04/24/16 07:00 04/24/16 15:15 Sodium Level 134 mEQ/L (135-145) L Potassium Level 5.0 mEQ/L (3.4-4.9) H Chloride Level 98 mEQ/L (98-107) Carbon Dioxide Level 23 mEQ/L (20-30) Anion Gap 13 (5-15) Blood Urea Nitrogen 19 mg/dL (7-23) Creatinine 0.8 mg/dL (0.7-1.2) Estimat Glomerular Filtration Rate > 60 mL/min (>60) Glucose Level 314 mg/dL (74-106) H Calcium Level 8.5 mg/dL (8.6-10.2) L White Blood Count 5.0 K/UL (4.8-10.8) Red Blood Count 3.84 M/UL (4.70-6.10) L Hemoglobin 9.9 G/DL (14.2-18.0) L Hematocrit 31.7 % (42.0-52.0) L Mean Corpuscular Volume 82 FL (80-99) Mean Corpuscular Hemoglobin 25.7 PG (27.0-31.0) L Mean Corpuscular Hemoglobin Concent 31.2 G/DL (32.0-36.0) L Red Cell Distribution Width 15.7 % (11.6-14.8) H Platelet Count 173 K/UL (150-450) Mean Platelet Volume 6.5 FL (6.5-10.1) Neutrophils (%) (Auto) 55.3 % (45.0-75.0) Lymphocytes (%) (Auto) 34.0 % (20.0-45.0) Monocytes (%) (Auto) 7.9 % (1.0-10.0) Eosinophils (%) (Auto) 2.3 % (0.0-3.0) Basophils (%) (Auto) 0.5 % (0.0-2.0) Microbiology Date/Time Source Procedure Growth Status 04/20/16 20:00 Stool Stool Culture - Final NO SALMONELLA,SHIGELLA,OR CAMPYLOBACT... Complete 04/20/16 14:30 Urine,Clean Catch Urine Culture - Final Escherichia Coli - Esbl Mixed Gram Positive Organism Complete Exam Narrative Bilateral foot 2nd toe ulceration down to the level of the joint capsule. Left foot 4th toe ulcer is improving in size and quality. No purulence or malodor noted. Bilateral foot with severe hallux valgus deformity with the hallux overlapping the second toe. This deformity is contributing to direct pressure on the second toe causing a pressure ulcer Dermatological Wound Assessment : Exudate Amount: None Edil Monroy DPM Apr 24, 2016 20:57
[2016-04-25] VITALS: BP 125/75
[2016-04-25 04:00] VITALS: BP 121/65
--- NOTE | 2016-04-25 04:57 | Progress Note ---
SUBJECTIVE: Diabetes is coming under control. OBJECTIVE: VITAL SIGNS: Blood pressure 139/81, pulse 68, respiratory rate 20 , and temperature 98.3 degrees. RESPIRATORY: Clear . CARDIAC: regular LABORATORY DATA:glucose 372. ASSESSMENT-Diabetee sMellitus increased by stress PLANS:Levemir 30u sc TID,Novolog 10u TIDd xliding scale_NovoLog q.i.d. ac and HS. Maulik Diaz M.D. DR: DARRICK JOB#: [id number] CC: TONY
[2016-04-25] MEDS: GlipiZIDE 5mg tab ORAL SCH (05:47)
[2016-04-25] MEDS ORDERED: Sodium Bicarbonate 8.4% 50ml Inj IV PRN (06:00)
[2016-04-25] MEDS: Meropenem 1gm/NS 110ml IVPB SCH ×4 (06:00→13:09)
[2016-04-25] MEDS ORDERED: Heparin 2000 units/Ns 1000ml INJ PRN (06:00)
[2016-04-25] MEDS ORDERED: Lidocaine 1% Plain 30 ml INJ PRN (06:00)
[2016-04-25] MEDS: NovoLOG Insulin Flexpen SUBQ SCH ×6 (06:11→17:24)
[2016-04-25 07:34] LABS: BASOPHILS % (AUTO) 1.3 % (0.0-2.0); EOSINOPHILS % (AUTO) 2.7 % (0.0-3.0); LYMPHOCYTES % (AUTO) 29.6 % (20.0-45.0); MEAN CORPUSCULAR HEMOGLOBIN 25.4 PG (27.0-31.0); MEAN CORPUSCULAR HGB CONC 30.5 G/DL (32.0-36.0); MEAN CORPUSCULAR VOLUME 83 FL (80-99); MEAN PLATELET VOLUME 6.7 FL (6.5-10.1); MONOCYTES % (AUTO) 6.9 % (1.0-10.0); NEUTROPHILS % (AUTO) 59.4 % (45.0-75.0); PLATELET COUNT 191 K/UL (150-450); RED BLOOD COUNT 3.79 M/UL (4.70-6.10); RED CELL DISTRIBUTION WIDTH 15.5 % (11.6-14.8); WHITE BLOOD COUNT 4.5 K/UL (4.8-10.8)
[2016-04-25 08:00] VITALS: BP 142/80
--- NOTE | 2016-04-25 08:01 | Infectious Diseases Prog Note ---
Assessment/Plan Assessment/Plan A: The patient is a 61-year-old male w ESBL Ecoli UTI Dysuria Hx recurrent urinary tract infection. History of chronic right upper extremity wound. History of chronic hepatitis C. Hx of MRSA and VRE colonization. Diabetes. History of TURP x 2 PLAN: Cont meropenem ( not started to lack of IV access ) Monitor CBC Monitor BMP PICC Subjective Allergies: Coded Allergies: No Known Allergies (Unverified , 12/31/11) Objective Vital Signs Last 24 Hour Vital Signs Date Time Temp Pulse Resp B/P Pulse Ox O2 Delivery O2 Flow Rate FiO2 04/25/16 05:47 138/79 04/25/16 04:00 98.2 74 18 121/65 98 Room Air 04/25/16 00:12 125/75 04/25/16 00:00 97.5 69 18 125/75 97 Room Air 04/24/16 21:39 69 16 Room Air 21 04/24/16 20:07 97.7 75 18 132/75 96 Room Air 04/24/16 18:13 132/71 04/24/16 16:23 98.1 71 15 132/71 100 04/24/16 13:03 134/82 04/24/16 11:59 98.2 66 14 134/82 100 Room Air 04/24/16 08:45 123/72 04/24/16 08:15 98.1 79 16 123/72 98 Room Air Height (Feet): 6 Height (Inches): 2.00 Weight (Pounds): 170 Laboratory Tests Test 04/24/16 15:15 04/25/16 06:15 White Blood Count 5.0 K/UL (4.8-10.8) 4.5 K/UL (4.8-10.8) L Red Blood Count 3.84 M/UL (4.70-6.10) L 3.79 M/UL (4.70-6.10) L Hemoglobin 9.9 G/DL (14.2-18.0) L 9.6 G/DL (14.2-18.0) L Hematocrit 31.7 % (42.0-52.0) L 31.6 % (42.0-52.0) L Mean Corpuscular Volume 82 FL (80-99) 83 FL (80-99) Mean Corpuscular Hemoglobin 25.7 PG (27.0-31.0) L 25.4 PG (27.0-31.0) L Mean Corpuscular Hemoglobin Concent 31.2 G/DL (32.0-36.0) L 30.5 G/DL (32.0-36.0) L Red Cell Distribution Width 15.7 % (11.6-14.8) H 15.5 % (11.6-14.8) H Platelet Count 173 K/UL (150-450) 191 K/UL (150-450) Mean Platelet Volume 6.5 FL (6.5-10.1) 6.7 FL (6.5-10.1) Neutrophils (%) (Auto) 55.3 % (45.0-75.0) 59.4 % (45.0-75.0) Lymphocytes (%) (Auto) 34.0 % (20.0-45.0) 29.6 % (20.0-45.0) Monocytes (%) (Auto) 7.9 % (1.0-10.0) 6.9 % (1.0-10.0) Eosinophils (%) (Auto) 2.3 % (0.0-3.0) 2.7 % (0.0-3.0) Basophils (%) (Auto) 0.5 % (0.0-2.0) 1.3 % (0.0-2.0) Sodium Level Pending Potassium Level Pending Chloride Level Pending Carbon Dioxide Level Pending Blood Urea Nitrogen Pending Creatinine Pending Estimat Glomerular Filtration Rate Pending Glucose Level Pending Calcium Level Pending Current Medications Medications (Trade) Dose Ordered Sig/Gabriel Route PRN Reason Start Time Stop Time Status Last Admin Dose Admin Acetaminophen (Tylenol) 650 mg Q4H PRN ORAL fever 04/20/16 07:15 05/20/16 07:14 Acetaminophen/ Hydrocodone Bitart ([place] 5/325) 1 tab Q6H PRN ORAL Moderate Pain (Pain Scale 4-6) 04/20/16 07:15 04/27/16 07:14 04/24/16 19:02 Al Hydroxide/Mg Hydroxide (Mylanta II) 30 ml Q6H PRN ORAL dyspepsia 04/20/16 07:15 05/20/16 07:14 Allopurinol (Zyloprim) 100 mg DAILY ORAL 04/20/16 09:00 05/20/16 08:59 04/24/16 08:46 Benazepril HCl (Lotensin) 10 mg DAILY ORAL 04/20/16 09:00 05/20/16 08:59 04/24/16 08:45 Clonidine HCl (Catapres) 0.1 mg EVERY 6 HOURS ORAL 04/20/16 12:00 05/20/16 11:59 04/25/16 05:47 Clonidine HCl (Catapres) 0.1 mg Q4H PRN ORAL sbp more than 160 04/20/16 07:15 05/20/16 07:14 Dextrose (Dextrose 50%) STAT PRN IV Hypoglycemia 04/20/16 07:15 05/20/16 07:14 Glipizide (Glucotrol) 10 mg BIAC ORAL 04/20/16 16:30 05/20/16 16:29 04/25/16 05:47 Heparin Sodium (Porcine) (Heparin 5000 units/ml) 5,000 units EVERY 12 HOURS SUBQ 04/20/16 09:00 05/20/16 08:59 04/24/16 08:44 Heparin Sodium/ Sodium Chloride (Heparin 2000 units/Ns 1000ml premix) 2,000 unit ONCE PRN INJ PICC LINE PLACEMENT 04/25/16 06:00 04/25/16 18:00 Insulin Aspart (NovoLOG) BEFORE MEALS AND HS SUBQ 04/20/16 11:30 05/20/16 11:29 04/24/16 20:50 Insulin Aspart 10 units 10 units NOVOTIAC SUBQ 04/23/16 06:30 05/23/16 06:29 04/24/16 16:31 Insulin Detemir (Levemir) 30 units Q12HR SUBQ 04/24/16 21:00 05/24/16 20:59 04/24/16 20:49 Lidocaine HCl (Xylocaine 1% 30ml) 30 ml ONCE PRN INJ PICC LINE PLACEMENT 04/25/16 06:00 04/25/16 18:00 Meropenem/Sodium Chloride (Merrem/Sodium Chloride) 110 ml @ 220 mls/hr Q8HR IVPB 04/24/16 14:00 04/29/16 13:59 Morphine Sulfate (Morphine Sulfate) 2 mg Q4H PRN IVP severe pain 7-10 04/20/16 07:15 04/27/16 07:14 04/23/16 04:58 Nitroglycerin (Ntg) 0.4 mg Q5M X 3 DOSES PRN SL Prn Chest Pain 04/20/16 07:15 05/20/16 07:14 Ondansetron HCl (Zofran) 4 mg Q6H PRN IVP Nausea & Vomiting 04/20/16 07:15 05/20/16 07:14 Ondansetron HCl (Zofran) 4 mg Q6H PRN ORAL Nausea & Vomiting 04/20/16 07:15 05/20/16 07:14 Pantoprazole (Protonix) 40 mg ACBREAKFAST ORAL 04/21/16 06:30 05/20/16 08:59 04/25/16 05:46 Polyethylene Glycol (Miralax) 17 gm DAILY ORAL 04/20/16 09:00 05/20/16 08:59 Polyethylene Glycol (Miralax) 17 gm HSPRN PRN ORAL Constipation 04/20/16 07:15 05/20/16 07:14 Sodium Bicarbonate (Sodium Bicarbonate) 50 ml ONCE PRN IV PICC LINE PLACEMENT 04/25/16 06:00 04/25/16 18:00 Tamsulosin HCl (Flomax) 0.4 mg BEDTIME ORAL 04/20/16 21:00 05/20/16 20:59 04/24/16 20:48 Temazepam (Restoril) 15 mg HSPRN PRN ORAL Insomnia 04/20/16 07:15 04/27/16 07:14 04/24/16 20:48 PEDRO ROGERS M.D. Apr 25, 2016 08:00
[2016-04-25 08:06] LABS: ANION GAP 12 (5-15); CALCIUM 8.8 mg/dL (8.6-10.2); CARBON DIOXIDE 27 mEQ/L (20-30); CHLORIDE 99 mEQ/L (98-107); CREATININE 0.9 mg/dL (0.7-1.2); GLOMERULAR FILTRATION RATE > 60 mL/min (>60); HEMOLYSIS 4; POTASSIUM 4.6 mEQ/L (3.4-4.9); SODIUM 138 mEQ/L (135-145)
[2016-04-25] MEDS: Miralax 17gm pkt ORAL SCH (09:04)
[2016-04-25] MEDS: Allopurinol 100mg Tab ORAL SCH (09:06)
[2016-04-25] MEDS: Heparin 5000 units/ml inj SUBQ SCH (09:07)
[2016-04-25] MEDS: Levemir Flexpen SUBQ SCH (09:10)
[2016-04-25] MEDS: Benazepril 10mg tab ORAL SCH (09:21)
[2016-04-25] MEDS: Norco 5mg/325mg tab ORAL PRN (09:21)
--- NOTE | 2016-04-25 10:20 | Internal Med Progress Note ---
Subjective Date of Service: Apr 25, 2016 Physician Name Cj Venegas Attending Physician Shailesh Martinez MD Current Medications Medications (Trade) Dose Ordered Sig/Gabriel Route PRN Reason Start Time Stop Time Status Last Admin Dose Admin Acetaminophen (Tylenol) 650 mg Q4H PRN ORAL fever 04/20/16 07:15 05/20/16 07:14 Acetaminophen/ Hydrocodone Bitart ([place] 5/325) 1 tab Q6H PRN ORAL Moderate Pain (Pain Scale 4-6) 04/20/16 07:15 04/27/16 07:14 04/25/16 09:21 Al Hydroxide/Mg Hydroxide (Mylanta II) 30 ml Q6H PRN ORAL dyspepsia 04/20/16 07:15 05/20/16 07:14 Allopurinol (Zyloprim) 100 mg DAILY ORAL 04/20/16 09:00 05/20/16 08:59 04/25/16 09:06 Benazepril HCl (Lotensin) 10 mg DAILY ORAL 04/20/16 09:00 05/20/16 08:59 04/25/16 09:21 Clonidine HCl (Catapres) 0.1 mg EVERY 6 HOURS ORAL 04/20/16 12:00 05/20/16 11:59 04/25/16 05:47 Clonidine HCl (Catapres) 0.1 mg Q4H PRN ORAL sbp more than 160 04/20/16 07:15 05/20/16 07:14 Dextrose (Dextrose 50%) STAT PRN IV Hypoglycemia 04/20/16 07:15 05/20/16 07:14 Glipizide (Glucotrol) 10 mg BIAC ORAL 04/20/16 16:30 05/20/16 16:29 04/25/16 05:47 Heparin Sodium (Porcine) (Heparin 5000 units/ml) 5,000 units EVERY 12 HOURS SUBQ 04/20/16 09:00 05/20/16 08:59 04/25/16 09:07 Heparin Sodium/ Sodium Chloride (Heparin 2000 units/Ns 1000ml premix) 2,000 unit ONCE PRN INJ PICC LINE PLACEMENT 04/25/16 06:00 04/25/16 18:00 Insulin Aspart (NovoLOG) BEFORE MEALS AND HS SUBQ 04/20/16 11:30 05/20/16 11:29 04/24/16 20:50 Insulin Aspart 10 units 10 units NOVOTIAC SUBQ 04/23/16 06:30 05/23/16 06:29 04/24/16 16:31 Insulin Detemir (Levemir) 30 units Q12HR SUBQ 04/24/16 21:00 05/24/16 20:59 04/25/16 09:10 Lidocaine HCl (Xylocaine 1% 30ml) 30 ml ONCE PRN INJ PICC LINE PLACEMENT 04/25/16 06:00 04/25/16 18:00 Meropenem/Sodium Chloride (Merrem/Sodium Chloride) 110 ml @ 220 mls/hr Q8HR IVPB 04/24/16 14:00 04/29/16 13:59 Morphine Sulfate (Morphine Sulfate) 2 mg Q4H PRN IVP severe pain 7-10 04/20/16 07:15 04/27/16 07:14 04/23/16 04:58 Nitroglycerin (Ntg) 0.4 mg Q5M X 3 DOSES PRN SL Prn Chest Pain 04/20/16 07:15 05/20/16 07:14 Ondansetron HCl (Zofran) 4 mg Q6H PRN IVP Nausea & Vomiting 04/20/16 07:15 05/20/16 07:14 Ondansetron HCl (Zofran) 4 mg Q6H PRN ORAL Nausea & Vomiting 04/20/16 07:15 05/20/16 07:14 Pantoprazole (Protonix) 40 mg ACBREAKFAST ORAL 04/21/16 06:30 05/20/16 08:59 04/25/16 05:46 Polyethylene Glycol (Miralax) 17 gm DAILY ORAL 04/20/16 09:00 05/20/16 08:59 04/25/16 09:04 Polyethylene Glycol (Miralax) 17 gm HSPRN PRN ORAL Constipation 04/20/16 07:15 05/20/16 07:14 Sodium Bicarbonate (Sodium Bicarbonate) 50 ml ONCE PRN IV PICC LINE PLACEMENT 04/25/16 06:00 04/25/16 18:00 Tamsulosin HCl (Flomax) 0.4 mg BEDTIME ORAL 04/20/16 21:00 05/20/16 20:59 04/24/16 20:48 Temazepam (Restoril) 15 mg HSPRN PRN ORAL Insomnia 04/20/16 07:15 04/27/16 07:14 04/24/16 20:48 Allergies: Coded Allergies: No Known Allergies (Unverified , 12/31/11) ROS Limited/Unobtainable: No Constitutional: Reports: no symptoms HEENT: Reports: no symptoms Cardiovascular: Reports: no symptoms Respiratory: Reports: no symptoms Gastrointestinal/Abdominal: Reports: no symptoms Genitourinary: Reports: frequency Neurologic/Psychiatric: Reports: no symptoms Subjective 61 YO M admitted for frequency urination. Cover for Int Med-Dr Martinez. Meropenem not started; pt refused IV. Await PICC line Objective Last Vital Signs Date Time Temp Pulse Resp B/P Pulse Ox O2 Delivery O2 Flow Rate FiO2 04/25/16 09:21 138/79 04/25/16 08:00 98.4 69 20 97 Room Air 04/25/16 07:54 21 Laboratory Tests Test 04/24/16 15:15 04/25/16 06:15 White Blood Count 5.0 K/UL (4.8-10.8) 4.5 K/UL (4.8-10.8) L Red Blood Count 3.84 M/UL (4.70-6.10) L 3.79 M/UL (4.70-6.10) L Hemoglobin 9.9 G/DL (14.2-18.0) L 9.6 G/DL (14.2-18.0) L Hematocrit 31.7 % (42.0-52.0) L 31.6 % (42.0-52.0) L Mean Corpuscular Volume 82 FL (80-99) 83 FL (80-99) Mean Corpuscular Hemoglobin 25.7 PG (27.0-31.0) L 25.4 PG (27.0-31.0) L Mean Corpuscular Hemoglobin Concent 31.2 G/DL (32.0-36.0) L 30.5 G/DL (32.0-36.0) L Red Cell Distribution Width 15.7 % (11.6-14.8) H 15.5 % (11.6-14.8) H Platelet Count 173 K/UL (150-450) 191 K/UL (150-450) Mean Platelet Volume 6.5 FL (6.5-10.1) 6.7 FL (6.5-10.1) Neutrophils (%) (Auto) 55.3 % (45.0-75.0) 59.4 % (45.0-75.0) Lymphocytes (%) (Auto) 34.0 % (20.0-45.0) 29.6 % (20.0-45.0) Monocytes (%) (Auto) 7.9 % (1.0-10.0) 6.9 % (1.0-10.0) Eosinophils (%) (Auto) 2.3 % (0.0-3.0) 2.7 % (0.0-3.0) Basophils (%) (Auto) 0.5 % (0.0-2.0) 1.3 % (0.0-2.0) Sodium Level 138 mEQ/L (135-145) Potassium Level 4.6 mEQ/L (3.4-4.9) Chloride Level 99 mEQ/L (98-107) Carbon Dioxide Level 27 mEQ/L (20-30) Anion Gap 12 (5-15) Blood Urea Nitrogen 18 mg/dL (7-23) Creatinine 0.9 mg/dL (0.7-1.2) Estimat Glomerular Filtration Rate > 60 mL/min (>60) Glucose Level 129 mg/dL (74-106) #H Calcium Level 8.8 mg/dL (8.6-10.2) Intake and Output 04/24/16 04/25/16 19:00 07:00 Intake Total 2000 ml 1580 ml Output Total 1400 ml 1000 ml Balance 600 ml 580 ml Intake Oral 2000 ml 1580 ml Output Urine Total 1400 ml 1000 ml # Voids 2 3 # Bowel Movements 1 Objective General Appearance: no apparent distress, alert, thin EENT: PERRL/EOMI, normal ENT inspection Neck: non-tender, normal alignment, supple Cardiovascular: normal peripheral pulses, normal rate, regular rhythm, no gallop/murmur, no JVD Respiratory/Chest: chest wall non-tender, lungs clear, normal breath sounds, no respiratory distress, no accessory muscle use Abdomen: normal bowel sounds, non tender, soft, no organomegaly, no mass Extremities: normal range of motion Neurologic: certified surgical tech/first assistant II-XII grossly normal, no motor/sensory deficits Skin: normal pigmentation, warm/dry Assessment/Plan Problem List: (1) Uncontrolled diabetes mellitus Assessment & Plan: Add levemir BID; continue novolog sliding scale and glipizide. See endocrinology recs. (2) Urinary retention Assessment & Plan: See urology note. (3) UTI (urinary tract infection) Assessment & Plan: ESBL E. coli. See ID consult. Meropenem not started; patient refused IV. Await PICC line (4) BPH (benign prostatic hypertrophy) Assessment & Plan: Continue flomax per urology. See urology recs. (5) Hypertension Assessment & Plan: Continue lotensin. (6) RIGHT FOOT VASCULAR ULCER Assessment & Plan: See podiatry note. (7) SUSPICION OF CHARCOT FOOT AND TOE DEFORMITY Status: progressing Assessment/Plan Discharge planning: group home fac vs home health CJ VENEGAS Apr 25, 2016 10:20
[2016-04-25 12:00] VITALS: BP 134/75
--- NOTE | 2016-04-25 12:48 | Urology Progress Note ---
Assessment/Plan Assessment/Plan 1. Benign prostatic hypertrophy history. 2. History of lower urinary tract symptoms. 3. Probable neurogenic bladder. 4. Hematuria. 5. Pyuria. 6. Proteinuria. cont with flomax abx as ordered, per ID renal fxn stable consider renal u/s Subjective Allergies: Coded Allergies: No Known Allergies (Unverified , 12/31/11) Subjective voiding Objective Last 24 Hour Vital Signs Date Time Temp Pulse Resp B/P Pulse Ox O2 Delivery O2 Flow Rate FiO2 04/25/16 11:16 138/79 04/25/16 09:21 138/79 04/25/16 08:00 98.4 69 20 142/80 97 Room Air 04/25/16 07:54 66 16 Room Air 21 04/25/16 05:47 138/79 04/25/16 04:00 98.2 74 18 121/65 98 Room Air 04/25/16 00:12 125/75 04/25/16 00:00 97.5 69 18 125/75 97 Room Air 04/24/16 21:39 69 16 Room Air 04/24/16 20:07 97.7 75 18 132/75 96 Room Air 04/24/16 18:13 132/71 04/24/16 16:23 98.1 71 15 132/71 100 04/24/16 13:03 134/82 Intake and Output 04/24/16 04/25/16 19:00 07:00 Intake Total 2000 ml 1580 ml Output Total 1400 ml 1000 ml Balance 600 ml 580 ml Intake Oral 2000 ml 1580 ml Output Urine Total 1400 ml 1000 ml # Voids 2 3 # Bowel Movements 1 Microbiology Date/Time Source Procedure Growth Status 04/20/16 20:00 Stool Stool Culture - Final NO SALMONELLA,SHIGELLA,OR CAMPYLOBACT... Complete 04/20/16 14:30 Urine,Clean Catch Urine Culture - Final Escherichia Coli - Esbl Mixed Gram Positive Organism Complete Current Medications Medications (Trade) Dose Ordered Sig/Gabriel Route PRN Reason Start Time Stop Time Status Last Admin Dose Admin Acetaminophen (Tylenol) 650 mg Q4H PRN ORAL fever 04/20/16 07:15 05/20/16 07:14 Acetaminophen/ Hydrocodone Bitart ([place] 5/325) 1 tab Q6H PRN ORAL Moderate Pain (Pain Scale 4-6) 04/20/16 07:15 04/27/16 07:14 04/25/16 09:21 Al Hydroxide/Mg Hydroxide (Mylanta II) 30 ml Q6H PRN ORAL dyspepsia 04/20/16 07:15 05/20/16 07:14 Allopurinol (Zyloprim) 100 mg DAILY ORAL 04/20/16 09:00 05/20/16 08:59 04/25/16 09:06 Benazepril HCl (Lotensin) 10 mg DAILY ORAL 04/20/16 09:00 05/20/16 08:59 04/25/16 09:21 Clonidine HCl (Catapres) 0.1 mg EVERY 6 HOURS ORAL 04/20/16 12:00 05/20/16 11:59 04/25/16 11:16 Clonidine HCl (Catapres) 0.1 mg Q4H PRN ORAL sbp more than 160 04/20/16 07:15 05/20/16 07:14 Dextrose (Dextrose 50%) STAT PRN IV Hypoglycemia 04/20/16 07:15 05/20/16 07:14 Glipizide (Glucotrol) 10 mg BIAC ORAL 04/20/16 16:30 05/20/16 16:29 04/25/16 05:47 Heparin Sodium (Porcine) (Heparin 5000 units/ml) 5,000 units EVERY 12 HOURS SUBQ 04/20/16 09:00 05/20/16 08:59 04/25/16 09:07 Heparin Sodium/ Sodium Chloride (Heparin 2000 units/Ns 1000ml premix) 2,000 unit ONCE PRN INJ PICC LINE PLACEMENT 04/25/16 06:00 04/25/16 18:00 Insulin Aspart (NovoLOG) BEFORE MEALS AND HS SUBQ 04/20/16 11:30 05/20/16 11:29 04/25/16 11:10 Insulin Aspart 10 units 10 units NOVOTIAC SUBQ 04/23/16 06:30 05/23/16 06:29 04/25/16 11:09 Insulin Detemir (Levemir) 30 units Q12HR SUBQ 04/24/16 21:00 05/24/16 20:59 04/25/16 09:10 Lidocaine HCl (Xylocaine 1% 30ml) 30 ml ONCE PRN INJ PICC LINE PLACEMENT 04/25/16 06:00 04/25/16 18:00 Meropenem/Sodium Chloride (Merrem/Sodium Chloride) 110 ml @ 220 mls/hr Q8HR IVPB 04/24/16 14:00 04/29/16 13:59 Morphine Sulfate (Morphine Sulfate) 2 mg Q4H PRN IVP severe pain 7-10 04/20/16 07:15 04/27/16 07:14 04/23/16 04:58 Nitroglycerin (Ntg) 0.4 mg Q5M X 3 DOSES PRN SL Prn Chest Pain 04/20/16 07:15 05/20/16 07:14 Ondansetron HCl (Zofran) 4 mg Q6H PRN IVP Nausea & Vomiting 04/20/16 07:15 05/20/16 07:14 Ondansetron HCl (Zofran) 4 mg Q6H PRN ORAL Nausea & Vomiting 04/20/16 07:15 05/20/16 07:14 Pantoprazole (Protonix) 40 mg ACBREAKFAST ORAL 04/21/16 06:30 05/20/16 08:59 04/25/16 05:46 Polyethylene Glycol (Miralax) 17 gm DAILY ORAL 04/20/16 09:00 05/20/16 08:59 04/25/16 09:04 Polyethylene Glycol (Miralax) 17 gm HSPRN PRN ORAL Constipation 04/20/16 07:15 05/20/16 07:14 Sodium Bicarbonate (Sodium Bicarbonate) 50 ml ONCE PRN IV PICC LINE PLACEMENT 04/25/16 06:00 04/25/16 18:00 Tamsulosin HCl (Flomax) 0.4 mg BEDTIME ORAL 04/20/16 21:00 05/20/16 20:59 04/24/16 20:48 Temazepam (Restoril) 15 mg HSPRN PRN ORAL Insomnia 04/20/16 07:15 04/27/16 07:14 04/24/16 20:48 Laboratory Tests 04/24/16 15:15: White Blood Count 5.0, Red Blood Count 3.84L, Hemoglobin 9.9L, Hematocrit 31.7L , Mean Corpuscular Volume 82, Mean Corpuscular Hemoglobin 25.7L, Mean Corpuscular Hemoglobin Concent 31.2L, Red Cell Distribution Width 15.7H, Platelet Count 173, Mean Platelet Volume 6.5, Neutrophils (%) (Auto) 55.3, Lymphocytes (%) (Auto) 34.0, Monocytes (%) (Auto) 7.9, Eosinophils (%) (Auto) 2.3, Basophils (%) (Auto) 0.5 04/25/16 06:15: White Blood Count 4.5L, Red Blood Count 3.79L, Hemoglobin 9.6L, Hematocrit 31.6L , Mean Corpuscular Volume 83, Mean Corpuscular Hemoglobin 25.4L, Mean Corpuscular Hemoglobin Concent 30.5L, Red Cell Distribution Width 15.5H, Platelet Count 191, Mean Platelet Volume 6.7, Neutrophils (%) (Auto) 59.4, Lymphocytes (%) (Auto) 29.6, Monocytes (%) (Auto) 6.9, Eosinophils (%) (Auto) 2.7, Basophils (%) (Auto) 1.3, Sodium Level 138, Potassium Level 4.6, Chloride Level 99, Carbon Dioxide Level 27, Anion Gap 12, Blood Urea Nitrogen 18, Creatinine 0.9, Estimat Glomerular Filtration Rate > 60, Glucose Level 129#H, Calcium Level 8.8 Height (Feet): 6 Height (Inches): 2.00 Weight (Pounds): 170 Objective exam stable BELA OCONNOR Apr 25, 2016 12:48
--- NOTE | 2016-04-25 14:29 | Diagnostic Imaging Report ---
Indication: intermission coordinator venous access Findings: After the indications, procedure, risks, complications, and alternatives of the procedure were explained, written informed consent was obtained. The right upper extremity was prepped with alcohol. All elements of maximal sterile barrier technique were followed including usage of a cap, mask, sterile gown, sterile gloves, hand hygiene and a large sterile sheet. Sonographic evaluation of the upper extremity was performed demonstrating a patent and compressible brachial vein. Access was obtained under real-time ultrasound guidance and digital image was saved and archived. An .018 wire was introduced. Needle exchanged for a 5 Armenian peel-away sheath. Measurements were obtained. A 5 Armenian dual-lumen Power PICC line catheter was cut to 45 cm and introduced over the wire. Peel-away sheath and wire were removed.Catheter was secured to the skin using 2-0 Prolene suture. Both ports aspirate and flush easily. Fluoroscopic Images show distal tip in the superior vena cava. Total fluoroscopic time is 0.5 minutes. Impression: Successful placement of an upper extremity PICC line catheter
[2016-04-25] MEDS: Morphine Sulfate 2mg/ml Inj IVP PRN (15:57)
[2016-04-25 16:00] VITALS: BP 164/97
[2016-04-25] MEDS ORDERED: MERREM1 GM IV (16:27)
[2016-04-25] MEDS ORDERED: GlipiZIDE 10mg tab ORAL SCH (16:30)
[2016-04-25 17:29] VITALS: BP 164/97
[2016-04-25] MEDS ORDERED: HEPARIN SO5000 UNIT2 SUBQ (17:38)
[2016-04-25] MEDS ORDERED: MYLANTA II30 ML ORAL (17:38)
[2016-04-25] MEDS ORDERED: NOVOLOG100 UNITS1 SQ ×2 (17:39→17:41)
[2016-04-25] MEDS ORDERED: MORPHINE 22 MG/1 ML IV (17:41)
[2016-04-25] MEDS ORDERED: RESTORIL15 MG ORAL (17:42)
[2016-04-25] MEDS ORDERED: NITROGLYCERIN0.4 MG SL (17:42)
[2016-04-25] MEDS ORDERED: CATAPRES0.1 MG ORAL (17:43)
--- NOTE | 2016-04-25 18:29 | Pulmonology Progress Note ---
Assessment/Plan Problems: (1) Emphysema of lung (2) Acute urinary tract infection (3) Hepatitis C (4) Hypertension (5) Gout (6) FTT (failure to thrive) in adult (7) BPH (benign prostatic hypertrophy) (8) Uncontrolled diabetes mellitus (9) Anemia in chronic illness (10) Anemia Assessment/Plan continue antibiotics respiratory treatment titrate fio2 improving sliding scale abx as per ID MDR UTI cultures are pending all notes, meds, labs Subjective Allergies: Coded Allergies: No Known Allergies (Unverified , 12/31/11) Objective Last 24 Hour Vital Signs Date Time Temp Pulse Resp B/P Pulse Ox O2 Delivery O2 Flow Rate FiO2 04/25/16 17:29 164/97 04/25/16 16:27 98.0 04/25/16 16:00 98.0 63 20 164/97 96 Room Air 04/25/16 12:00 98.0 65 20 134/75 100 Room Air 04/25/16 11:16 138/79 04/25/16 09:21 138/79 04/25/16 08:00 98.4 69 20 142/80 97 Room Air 04/25/16 07:54 66 16 Room Air 21 04/25/16 05:47 138/79 04/25/16 04:00 98.2 74 18 121/65 98 Room Air 04/25/16 00:12 125/75 04/25/16 00:00 97.5 69 18 125/75 97 Room Air 04/24/16 21:39 69 16 Room Air 21 04/24/16 20:07 97.7 75 18 132/75 96 Room Air Intake and Output 04/24/16 04/25/16 19:00 07:00 Intake Total 2000 ml 1580 ml Output Total 1400 ml 1000 ml Balance 600 ml 580 ml Intake Oral 2000 ml 1580 ml Output Urine Total 1400 ml 1000 ml # Voids 2 3 # Bowel Movements 1 Laboratory Tests 04/25/16 06:15: White Blood Count 4.5L, Red Blood Count 3.79L, Hemoglobin 9.6L, Hematocrit 31.6L , Mean Corpuscular Volume 83, Mean Corpuscular Hemoglobin 25.4L, Mean Corpuscular Hemoglobin Concent 30.5L, Red Cell Distribution Width 15.5H, Platelet Count 191, Mean Platelet Volume 6.7, Neutrophils (%) (Auto) 59.4, Lymphocytes (%) (Auto) 29.6, Monocytes (%) (Auto) 6.9, Eosinophils (%) (Auto) 2.7, Basophils (%) (Auto) 1.3, Sodium Level 138, Potassium Level 4.6, Chloride Level 99, Carbon Dioxide Level 27, Anion Gap 12, Blood Urea Nitrogen 18, Creatinine 0.9, Estimat Glomerular Filtration Rate > 60, Glucose Level 129#H, Calcium Level 8.8 Current Medications Medications (Trade) Dose Ordered Sig/Gabriel Route PRN Reason Start Time Stop Time Status Last Admin Dose Admin Acetaminophen (Tylenol) 650 mg Q4H PRN ORAL fever 04/20/16 07:15 05/20/16 07:14 Acetaminophen/ Hydrocodone Bitart ([place] 5/325) 1 tab Q6H PRN ORAL Moderate Pain (Pain Scale 4-6) 04/20/16 07:15 04/27/16 07:14 04/25/16 09:21 Al Hydroxide/Mg Hydroxide (Mylanta II) 30 ml Q6H PRN ORAL dyspepsia 04/20/16 07:15 05/20/16 07:14 Allopurinol (Zyloprim) 100 mg DAILY ORAL 04/20/16 09:00 05/20/16 08:59 04/25/16 09:06 Benazepril HCl (Lotensin) 10 mg DAILY ORAL 04/20/16 09:00 05/20/16 08:59 04/25/16 09:21 Clonidine HCl (Catapres) 0.1 mg EVERY 6 HOURS ORAL 04/20/16 12:00 05/20/16 11:59 04/25/16 17:29 Clonidine HCl (Catapres) 0.1 mg Q4H PRN ORAL sbp more than 160 04/20/16 07:15 05/20/16 07:14 Dextrose (Dextrose 50%) STAT PRN IV Hypoglycemia 04/20/16 07:15 05/20/16 07:14 Glipizide (Glucotrol) 10 mg BIAC ORAL 04/25/16 16:30 05/25/16 16:29 04/25/16 15:58 Heparin Sodium (Porcine) (Heparin 5000 units/ml) 5,000 units EVERY 12 HOURS SUBQ 04/20/16 09:00 05/20/16 08:59 04/25/16 09:07 Insulin Aspart (NovoLOG) BEFORE MEALS AND HS SUBQ 04/20/16 11:30 05/20/16 11:29 04/25/16 17:24 Insulin Aspart 10 units 10 units NOVOTIAC SUBQ 04/23/16 06:30 05/23/16 06:29 04/25/16 17:24 Insulin Detemir (Levemir) 30 units Q12HR SUBQ 04/24/16 21:00 05/24/16 20:59 04/25/16 09:10 Meropenem/Sodium Chloride (Merrem/Sodium Chloride) 110 ml @ 220 mls/hr Q8HR IVPB 04/24/16 14:00 04/29/16 13:59 04/25/16 13:09 Morphine Sulfate (Morphine Sulfate) 2 mg Q4H PRN IVP severe pain 7-10 04/20/16 07:15 04/27/16 07:14 04/25/16 15:57 Nitroglycerin (Ntg) 0.4 mg Q5M X 3 DOSES PRN SL Prn Chest Pain 04/20/16 07:15 05/20/16 07:14 Ondansetron HCl (Zofran) 4 mg Q6H PRN IVP Nausea & Vomiting 04/20/16 07:15 05/20/16 07:14 Ondansetron HCl (Zofran) 4 mg Q6H PRN ORAL Nausea & Vomiting 04/20/16 07:15 05/20/16 07:14 Pantoprazole (Protonix) 40 mg ACBREAKFAST ORAL 04/21/16 06:30 05/20/16 08:59 04/25/16 05:46 Polyethylene Glycol (Miralax) 17 gm DAILY ORAL 04/20/16 09:00 05/20/16 08:59 04/25/16 09:04 Polyethylene Glycol (Miralax) 17 gm HSPRN PRN ORAL Constipation 04/20/16 07:15 05/20/16 07:14 Tamsulosin HCl (Flomax) 0.4 mg BEDTIME ORAL 04/20/16 21:00 05/20/16 20:59 04/24/16 20:48 Temazepam (Restoril) 15 mg HSPRN PRN ORAL Insomnia 04/20/16 07:15 04/27/16 07:14 04/24/16 20:48 SILVA PACE Apr 25, 2016 18:29
--- NOTE | 2016-04-26 15:30 | Discharge Summary ---
Discharge Summary Hospital Course Date of Admission Apr 20, 2016 at 01:45 Date of Discharge Apr 25, 2016 at 20:05 Admitting Diagnosis FTT, uti HPI Gill Caraballo is a 61 year old male who was admitted on Apr 20, 2016 at 01:45 for Failure To Thrive,Urinary Tract Infection Hospital Course dc summary dictated #[id number] Discharge Medications Continued Medications: Al Hydroxide/mg Hydroxide (Mag-Al Plus Suspension) 30 Ml Oral.susp 30 ML ORAL Q6HR PRN for Abdominal cramps, ML Allopurinol* (Allopurinol*) 100 Mg Tablet 100 MG ORAL DAILY, TAB Benazepril Hcl* (Benazepril Hcl*) 40 Mg Tablet 10 MG ORAL DAILY, TAB Clonidine Hcl* (Catapres*) 0.1 Mg Tablet 0.1 MG ORAL EVERY 6 HOURS, TAB Heparin Sod (Porcine) (Heparin Sodium*) 5 000/1 Ml Vial 5000 UNITS SUBQ EVERY 12 HOURS, VIAL Hydrocodone Bit/Acetaminophen 5-325* (Bush 5-325*) 1 Each Tablet 1 TAB ORAL Q6H PRN for For Pain, #10 TAB 0 Refills Insulin Aspart (Novolog Flexpen) 100 Unit/1 Ml Insuln.pen SQ AC+HS Insulin Aspart (Novolog Flexpen) 100 Unit/1 Ml Insuln.pen 10 UNITS SQ TIAC Meropenem (Merrem) 1 Gm Vial 1 GM IV Q8HR for 10 Days, VIAL Nitroglycerin (Nitroglycerin) 0.4 Mg Tab.subl 0.4 MG SL [id number] PRN for chest pain, TAB Ondansetron (Zofran) 4 Mg Tab 4 MG ORAL Q6H PRN for Nausea & Vomiting, TAB Pantoprazole* (Pantoprazole*) 40 Mg Tablet.dr 40 MG ORAL DAILY, TAB Polyethylene Glycol 3350* (Miralax*) 17 Gm Powd.pack 17 GM ORAL DAILY, PACKET Tamsulosin Hcl (Tamsulosin Hcl*) 0.4 Mg Cap.er.24h 0.4 MG ORAL BEDTIME, CAP Temazepam* (Restoril*) 15 Mg Capsule 15 MG ORAL BEDTIME PRN for Insomnia, CAP Discontinued Medications: Acetaminophen (Acetaminophen) 650 Mg/20.3 Ml Soln 650 MG ORAL Q6H PRN for Prn Headache/Temp > 101, ML 0 Refills Cephalexin* (Keflex*) 500 Mg Capsule 500 MG ORAL Q6H, #28 CAP Docusate Sodium (Docusate Sodium) 250 Mg Cap 250 MG ORAL DAILY, CAP Fluconazole (Fluconazole) 200 Mg Tablet 200 MG ORAL DAILY for 7 Days, TAB 0 Refills Glipizide* (Glipizide*) 5 Mg Tablet 10 MG ORAL BIDAC, TAB Insulin Detemir (Levemir Flexpen) 100 Unit/1 Ml Insuln.pen 22 UNITS SUBQ Q12HR for 30 Days, EA Insulin Detemir (Levemir Flexpen) 100 Unit/1 Ml Insuln.pen 22 SUBQ EVERY 12 HOURS, #300 UNITS 0 Refills Insulin Lispro (Humalog) 100 Unit/1 Ml Cartridge 5 SUBQ BEFORE MEALS, #1 UNITS 0 Refills Methadone Hcl* (Methadone*) 10 Mg Tablet 20 MG PO DAILY, #10 TAB 0 Refills Morphine Sulfate* (Morphine Sulfate*) 2 Mg/1 Ml Cartridge 2 MG IV Q4HR PRN for For Pain, EA Multivitamin with Minerals (Multivitamins with Minerals) 1 Each Tablet 1 TAB ORAL DAILY, TAB Nph, Human Insulin Isophane (Humulin N) 100 Unit/1 Ml Vial 0 SUBQ BEFORE MEALS, VIAL Trimethoprim/Sulfamethoxazole 160/800* (Bactrim Ds Tablet*) 1 Each Tablet 1 TAB ORAL TWICE A DAY for 7 Days, TAB Unable to Obtain Medications (Unable To Obtain Meds) 1 Ea Ea Discharge Condition Upon Discharge: stable Discharge Disposition Patient was discharged to SNF/Subacute Facility(03) Discharge Diagnoses: Damon (Glenn)Jina NP Apr 26, 2016 15:30
--- NOTE | 2016-04-27 08:58 | Discharge Summary 2 SIG ---
DATE OF ADMISSION: 04/20/2016 DATE OF DISCHARGE: 04/25/2016 REASON FOR ADMISSION: 61 years old male, with frequent hospitalizations for recurrent urinary tract infections , with past medical history of diabetes and chronic obstructive pulmonary disease, was brought by bystander [place] The patient stated he went to eat and was on his way home, when he fell. He denied fever or chills. He reported feeling weak. There was no nausea. No vomiting. No chest pain. No shortness of breath. Workup in the emergency department revealed blood sugar of 531. Urinalysis with evidence of urinary tract infection. CT of the head revealed no acute intracranial pathology. Chest x-ray revealed no acute cardiopulmonary disease. There was no evidence of sepsis. No evidence of DKA.No evidence of ACS. patient was admitted for further management. HOSPITAL; STAY: Endocrinology consult requested. Blood sugar was managed with short acting premeal insulin and long-acting Levemir,as well as sliding scale on as needed basis, Hemoglobin A1c -12.7, grossly not at goal. Patient was encouraged to be compliant with the hypoglycemic regimen. The patient was on antibiotics. ID followed. Urine culture revealed E.coli ESBL. Stool culture was negative. Continue antibiotics upon [facility] at [facility] per ID recommendation. Chest x-ray was negative for any evidence of infection. CT of the head was negative for any intracranial pathology. Lipid panel and TSH were both stable. The patient was on IV fluid. Renal parameters were stable. Urology seen the patient and recommended to continue Proscar and do renal ultrasound as outpatient. Online Services Manager seen the patient. Online Services Manager recommended wound care for for the bilateral foot ulcers. Arterial and Venous Duplex bilateral lower extremities were negative. X-ray of bilateral foot was nondiagnostic for osteomyelitis. It revealed significant alignment abnormalities. Wound care nurse seen the patient for sacral and left ischial decubitus stage III and recommended wound care. DVT and gastrointestinal prophylaxis provided. The patient was working with physical and occupational therapists. Blood sugar improved with current regimen. Supplemental oxygen and pulmonary toilet provided as needed. The patient has no evidence of acute chronic obstructive pulmonary disease exacerbation. Hemoglobin and hematocrit were stable, at baseline. [place] was discharged to the [facility] after placement was found and secured. DISCHARGE DIAGNOSES: 1. Diabetes, out of control. 2. Acute encephalopathy likely secondary to hyperglycemia, resolved. 3. Urinary retention with history of benign prostatic hyperplasia. 4. Probable neurogenic bladder. 5. Hypertension. 6. Chronic hepatitis C. 7. Anemia of chronic disease. 8. Urinary tract infection. 9. Electrolyte imbalance - resolved 10. Hallux valgus acquired, right foot and hallux valgus acquired, left foot. 11. Hammer toes bilateral. DISCHARGE MEDICATIONS: See medication reconciliation list. DISCHARGE INSTRUCTIONS: The patient to be followed by medical doctor at the facility. Closely monitor hemoglobin and hematocrit. Closely monitor blood sugar and likely will need further optimization of antiglycemic regimen, considering that hemoglobin A1c grossly not at goal at- 12.7. Decubitus ulcer wound care as per wound care nurse recommendation to be continued at the [facility]. Bilateral foot ulcers wound care as per podiatry recommendations. Shailesh Martinez M.D. I have been assigned to dictate discharge summary on this account and I was not involved in the patient's management. Jina Botellofatuma NJeffPJeff DR: MICHA JOB#: [id number] CC: TONY
== END 2016-04-25 20:05 | DRG 420 ==
LOC: EMR 23:30 → EDBEDREQ 04-20 01:04 → 4E 04-20 01:45 → EDBEDREQ 04-20 02:16 → 4E 04-20 03:14
PROC: 02HV33Z Insertion of Infusion Device into Superior Vena Cava, Percutaneous Approach (ICD-10-PCS; principal; 2016-04-25)
DX: E11.65 Type 2 diabetes mellitus with hyperglycemia (principal); G93.49 Other encephalopathy; L89.153 Pressure ulcer of sacral region, stage 3; L89.323 Pressure ulcer of left buttock, stage 3; E11.40 Type 2 diabetes mellitus with diabetic neuropathy, unspecified; E11.21 Type 2 diabetes mellitus with diabetic nephropathy; E87.8 Other disorders of electrolyte and fluid balance, not elsewhere classified; N39.0 Urinary tract infection, site not specified; N31.9 Neuromuscular dysfunction of bladder, unspecified; I10 Essential (primary) hypertension; M10.9 Gout, unspecified; R62.7 Adult failure to thrive; R31.9 Hematuria, unspecified; N40.1 Benign prostatic hyperplasia with lower urinary tract symptoms; R33.8 Other retention of urine; B18.2 Chronic viral hepatitis C; M20.12 Hallux valgus (acquired), left foot; M20.11 Hallux valgus (acquired), right foot; M20.42 Other hammer toe(s) (acquired), left foot; M20.41 Other hammer toe(s) (acquired), right foot; N13.8 Other obstructive and reflux uropathy; B96.20 Unspecified Escherichia coli [E. coli] as the cause of diseases classified elsewhere; Z16.12 Extended spectrum beta lactamase (ESBL) resistance; I73.9 Peripheral vascular disease, unspecified; Z59.0 Homelessness; L97.529 Non-pressure chronic ulcer of other part of left foot with unspecified severity; L97.519 Non-pressure chronic ulcer of other part of right foot with unspecified severity
CPT/HCPCS: 36415; 36569; 70450; 71010; 76937; 80048; 80053; 80061; 81003; 82947; 82962; 83036; 83690; 83735; 84100; 84443; 84484; 85025; 85610; 85730; 87045; 87086; 87181; 93925; 93970; 94640; 94664; J1815; J7620; S5561

== ENCOUNTER 2016-06-04 23:31 | Emergency (ER) | payer OTHER ==
[~2016-06-04] VITALS: Ht 188 cm; Wt 79.4 kg
[~2016-06-04 23:31] MED LIST changes: +HEPARIN SO5000 UNIT2 SUBQ; +MERREM1 GM IV; +MORPHINE 22 MG/1 ML IV; +MYLANTA II30 ML ORAL; +NITROGLYCERIN0.4 MG SL; +NOVOLOG100 UNITS1 SQ; +RESTORIL15 MG ORAL; +UNOBMED
[2016-06-05] VITALS: BP 159/84
--- NOTE | 2016-06-05 00:10 | Emergency Room Report ---
History of Present Illness General Chief Complaint: General Complaint Source: Patient Present Illness HPI This is a 61-year-old male well-known to this ER. He has a history of diabetic neuropathy, diabetes, frequent urinary tract infection. He had recent prostate surgery. He is currently taking antibiotics. He just left the hospital. He is awaiting her waiting room for the last 4 hours. He said he checked in because of diabetes. Denies any other complaint. Denies any nausea vomiting. Denies any fever or chills. Allergies: Coded Allergies: No Known Allergies (Unverified , 12/31/11) Patient History Past Medical History: see triage record, old chart reviewed Past Surgical History: other Pertinent Family History: none Social History: Denies: drug use Immunizations: other Reviewed Nursing Documentation: PMH: Agreed, PSxH: Agreed Nursing Documentation-PMH Hx Cardiac Problems: Yes Hx Hypertension: Yes Hx COPD: Yes Hx Diabetes: Yes - neuropathy male urinary problems Hx Cancer: Yes Hx Gastrointestinal Problems: No Hx Neurological Problems: Yes Hx Numbness: Yes Hx Weakness: Yes Review of Systems Eye: Denies: blurred vision, eye pain ENT: Denies: ear pain, nose congestion, throat swelling Respiratory: Denies: cough, shortness of breath Cardiovascular: Denies: chest pain, palpitations Gastrointestinal: Denies: abdominal pain, diarrhea, nausea, vomiting Musculoskeletal: Denies: back pain, joint pain Skin: Denies: rash Neurological: Denies: headache, numbness Endocrine: Denies: increased thirst, increased urine Hematologic/Lymphatic: Denies: easy bruising All Other Systems: negative except mentioned in HPI Physical Exam Vital Signs Date Time Temp Pulse Resp B/P Pulse Ox O2 Delivery O2 Flow Rate FiO2 06/04/16 23:49 99.5 116 18 159/84 95 Room Air vitals with hypertension Sp02 EP Interpretation: reviewed, normal General Appearance: well appearing, no apparent distress, alert Head: normocephalic, atraumatic Eyes: bilateral eye EOMI, bilateral eye PERRL ENT: hearing grossly normal, normal pharynx Neck: full range of motion, supple, no meningismus Respiratory: chest non-tender, lungs clear, normal breath sounds Cardiovascular #1: regular rate, rhythm, no murmur Gastrointestinal: normal bowel sounds, non tender, no mass, no organomegaly, no bruit, non-distended Musculoskeletal: back normal, normal range of motion, other - Right foot in a walking boot Neurologic: alert Psychiatric: mood/affect normal Skin: warm/dry Medical Decision Making Diagnostic Impression: Primary Impression: Hyperglycemia Additional Impression: Diabetic neuropathy Qualified Codes: E11.42 - Type 2 diabetes mellitus with diabetic polyneuropathy ER Course Patient presents with uncontrolled diabetes. Insulin given here. He has his medication with him. He has no other complaint. He said he is not homeless but is suspect that he has. He goes hospital to hospital. He is currently on antibiotics. We'll discharge him in the morning. Last Vital Signs Date Time Temp Pulse Resp B/P Pulse Ox O2 Delivery O2 Flow Rate FiO2 06/04/16 23:49 99.5 116 18 159/84 95 Room Air Status: improved Disposition: HOME, SELF-CARE Condition: Stable Additional Instructions: take your medication. Followup with your Dr. in 2-3 days. Return if worse. ESPERANZA KEMP M.D. Jun 05, 2016 00:10
[2016-06-05 02:00] VITALS: BP 119/61
[2016-06-05 04:00] VITALS: BP 125/65
[2016-06-05 06:00] VITALS: BP 145/75
[2016-06-05 06:10] VITALS: BP 125/65
[2016-06-06] MEDS ORDERED: SYMLIN600 MCG/1 SUBQ (01:43)
[2016-06-06] MEDS ORDERED: JANUVIA25 MG ORAL (01:43)
[2016-06-06] MEDS ORDERED: HYDROCORTISONE-30 GM TOPIC (01:43)
[2016-06-06] MEDS ORDERED: METFORMIN HCL850 M1 ORAL (01:43)
[2016-06-06] MEDS ORDERED: HUMALOG100 UNIT/1 SUBQ (01:43)
[2016-06-06] MEDS ORDERED: GLIPIZIDE5 MG ORAL (01:43)
== END 2016-06-05 06:15 | disposition home or self-care (01) ==
LOC: EMR 23:55
DX: E11.65 Type 2 diabetes mellitus with hyperglycemia (principal); E11.42 Type 2 diabetes mellitus with diabetic polyneuropathy; I10 Essential (primary) hypertension; J44.9 Chronic obstructive pulmonary disease, unspecified
CPT/HCPCS: 82962; 96372; 99282; J1815

== ENCOUNTER 2016-06-06 00:38 | Inpatient (IN) | payer OTHER ==
[~2016-06-06] VITALS: Ht 182.9 cm; Wt 77.1 kg
[2016-06-06 01:24] LABS: BASOPHILS % (AUTO) 0.7 % (0.0-2.0); EOSINOPHILS % (AUTO) 1.9 % (0.0-3.0); MEAN CORPUSCULAR HEMOGLOBIN 25.5 PG (27.0-31.0); MEAN CORPUSCULAR HGB CONC 31.7 G/DL (32.0-36.0); MEAN CORPUSCULAR VOLUME 81 FL (80-99); MEAN PLATELET VOLUME 7.5 FL (6.5-10.1); MONOCYTES % (AUTO) 6.3 % (1.0-10.0); NEUTROPHILS % (AUTO) 70.2 % (45.0-75.0); PLATELET COUNT 213 K/UL (150-450); RED BLOOD COUNT 4.56 M/UL (4.70-6.10); RED CELL DISTRIBUTION WIDTH 16.8 % (11.6-14.8); WHITE BLOOD COUNT 10.4 K/UL (4.8-10.8)
[2016-06-06 01:39] LABS: ANION GAP 15 (5-15); CARBON DIOXIDE 26 mEQ/L (20-30); CHLORIDE 93 mEQ/L (98-107); GLOMERULAR FILTRATION RATE > 60 mL/min (>60); HEMOLYSIS 8; POTASSIUM 4.2 mEQ/L (3.4-4.9); SODIUM 134 mEQ/L (135-145)
[2016-06-06] MEDS ORDERED: HUMALOG100 UNIT/1 SUBQ (01:43)
[2016-06-06] MEDS ORDERED: METFORMIN HCL850 M1 ORAL (01:43)
[2016-06-06] MEDS ORDERED: JANUVIA25 MG ORAL (01:43)
[2016-06-06] MEDS ORDERED: GLIPIZIDE5 MG ORAL (01:43)
[2016-06-06] MEDS ORDERED: HYDROCORTISONE-30 GM TOPIC (01:43)
[2016-06-06] MEDS ORDERED: SYMLIN600 MCG/1 SUBQ (01:43)
[2016-06-06 02:09] LABS: APPEARANCE,URINE CLEAR; KETONES,URINE NEGATIVE (NEGATIVE); LEUKOCYTE ESTERASE ,URINE 1+ (NEGATIVE); NITRITE,URINE NEGATIVE (NEGATIVE); PH,URINE 6.5 (4.5-8.0); PROTEIN,URINE 2+ (NEGATIVE); UROBILINOGEN,URINE 4 MG/DL (0.0-1.0)
[2016-06-06 02:14] LABS: RBC,URINE 0-2 /HPF (0 - 0); SQUAMOUS EPITHELIAL CELL,UR FEW /LPF (NONE/OCC)
--- NOTE | 2016-06-06 02:32 | Emergency Room Report ---
History of Present Illness General Chief Complaint: General Complaint Source: Patient, Medical Record Present Illness HPI This is a 61-year-old male with a history diabetes, hypertension and chronic any tract infection. He said is not homeless but I think he is. Patient goes to different ERs in the area. I saw him yesterday. He came in and was sitting in the waiting room for 4 hours before checking in. He complaining of high blood sugar. There was treated. He left and today call from the same fast food restaurant. He claimed that he fell and cannot walk. There was no trauma. Denies any fever or chills. Denies any nausea vomiting. He uses a cane because of his diabetic neuropathy and ulcer. Denies any chest pain. He no longer has a chronic Dorsey because he had recent TURP procedure at [facility]. Allergies: Coded Allergies: No Known Allergies (Unverified , 12/31/11) Patient History Past Medical History: see triage record, old chart reviewed, DM, HTN Past Surgical History: other Pertinent Family History: none Social History: Denies: smoking Immunizations: other Reviewed Nursing Documentation: PMH: Agreed, PSxH: Agreed Nursing Documentation-PMH Past Medical History: No History, Except For Hx Cardiac Problems: Yes Hx Hypertension: Yes Hx COPD: Yes Hx Diabetes: Yes - neuropathy male urinary problems Hx Cancer: Yes Hx Gastrointestinal Problems: No Hx Neurological Problems: Yes Hx Numbness: Yes Hx Weakness: Yes Review of Systems Eye: Denies: blurred vision, eye pain ENT: Denies: ear pain, nose congestion, throat swelling Respiratory: Denies: cough, shortness of breath Cardiovascular: Denies: chest pain, palpitations Gastrointestinal: Denies: abdominal pain, diarrhea, nausea, vomiting Musculoskeletal: Denies: back pain, joint pain Skin: Denies: rash Neurological: Denies: headache, numbness Endocrine: Denies: increased thirst, increased urine Hematologic/Lymphatic: Denies: easy bruising All Other Systems: negative except mentioned in HPI Physical Exam Vital Signs Date Time Temp Pulse Resp B/P Pulse Ox O2 Delivery O2 Flow Rate FiO2 06/06/16 00:38 98.1 110 21 128/86 100 Room Air vitals with tachycardia Sp02 EP Interpretation: reviewed, normal General Appearance: well appearing, no apparent distress, alert Head: normocephalic, atraumatic Eyes: bilateral eye EOMI, bilateral eye PERRL ENT: hearing grossly normal, normal pharynx Neck: full range of motion, supple, no meningismus Respiratory: chest non-tender, lungs clear, normal breath sounds Cardiovascular #1: regular rate, rhythm, no murmur Gastrointestinal: normal bowel sounds, non tender, no mass, no organomegaly, no bruit, non-distended Musculoskeletal: back normal, normal range of motion, other - Right foot with ulcer and orthopedic shoes Psychiatric: mood/affect normal Skin: warm/dry Medical Decision Making Diagnostic Impression: Primary Impression: Failure to thrive in adult Additional Impressions: Anemia Qualified Codes: D64.9 - Anemia, unspecified Diabetic foot ulcer Qualified Codes: E10.621 - Type 1 diabetes mellitus with foot ulcer; L97.519 - Non-pressure chronic ulcer of other part of right foot with unspecified severity Diabetic neuropathy Qualified Codes: E10.49 - Type 1 diabetes mellitus with other diabetic neurological complication Proteinuria Pyuria ER Course Patient presents with generalize weakness and failure to thrive. He has no WBC in his urine but no bacteria. I will hold off on antibiotics for now. I suspect that he is homeless and will be fpc placement. He is unable to care for himself. Claimed that he has a place in [facility]. Laboratory Tests Test 06/06/16 01:13 06/06/16 02:00 White Blood Count 10.4 K/UL (4.8-10.8) Red Blood Count 4.56 M/UL (4.70-6.10) L Hemoglobin 11.6 G/DL (14.2-18.0) L Hematocrit 36.7 % (42.0-52.0) L Mean Corpuscular Volume 81 FL (80-99) Mean Corpuscular Hemoglobin 25.5 PG (27.0-31.0) L Mean Corpuscular Hemoglobin Concent 31.7 G/DL (32.0-36.0) L Red Cell Distribution Width 16.8 % (11.6-14.8) H Platelet Count 213 K/UL (150-450) Mean Platelet Volume 7.5 FL (6.5-10.1) Neutrophils (%) (Auto) 70.2 % (45.0-75.0) Lymphocytes (%) (Auto) 21.0 % (20.0-45.0) Monocytes (%) (Auto) 6.3 % (1.0-10.0) Eosinophils (%) (Auto) 1.9 % (0.0-3.0) Basophils (%) (Auto) 0.7 % (0.0-2.0) Sodium Level 134 mEQ/L (135-145) L Potassium Level 4.2 mEQ/L (3.4-4.9) Chloride Level 93 mEQ/L (98-107) L Carbon Dioxide Level 26 mEQ/L (20-30) Anion Gap 15 (5-15) Blood Urea Nitrogen 21 mg/dL (7-23) Creatinine 1.0 mg/dL (0.7-1.2) Estimat Glomerular Filtration Rate > 60 mL/min (>60) Glucose Level 99 mg/dL (74-106) Calcium Level 9.0 mg/dL (8.6-10.2) Urine Color Yellow Urine Appearance Clear Urine pH 6.5 (4.5-8.0) Urine Specific [place] 1.015 (1.005-1.035) Urine Protein 2+ (NEGATIVE) H Urine Glucose (UA) 2+ (NEGATIVE) H Urine Ketones Negative (NEGATIVE) Urine Occult Blood Negative (NEGATIVE) Urine Nitrite Negative (NEGATIVE) Urine Bilirubin Negative (NEGATIVE) Urine Urobilinogen 4 MG/DL (0.0-1.0) H Urine Leukocyte Esterase 1+ (NEGATIVE) H Urine RBC 0-2 /HPF (0 - 0) H Urine WBC 10-15 /HPF (0 - 0) H Urine Squamous Epithelial Cells Few /LPF (NONE/OCC) Urine Bacteria None /HPF (NONE) Lab Results Impression labs are remarkable Last Vital Signs Date Time Temp Pulse Resp B/P Pulse Ox O2 Delivery O2 Flow Rate FiO2 06/06/16 00:38 98.1 110 21 128/86 100 Room Air Status: improved Disposition: ADMITTED INPATIENT Condition: Serious Referrals: [facility],REFERRING (PCP) ESPERANZA KEMP M.D. Jun 06, 2016 02:32
[2016-06-06 03:35] VITALS: BP 147/74
[2016-06-06 04:10] VITALS: BP 143/71
[2016-06-06] MEDS ORDERED: Ketorolac 30mg Inj IV PRN (04:45)
[2016-06-06] MEDS ORDERED: Nitroglycerin Subl 0.4mg tab (Bottle Of 25) SL PRN (04:45)
[2016-06-06] MEDS ORDERED: Mylanta II UD 30ml ORAL PRN (04:45)
[2016-06-06] MEDS ORDERED: DuoNeb 0.5-3(2.5)mg/3ml neb HHN PRN (04:45)
[2016-06-06] MEDS ORDERED: Miralax 17gm pkt ORAL PRN (04:45)
[2016-06-06] MEDS: NovoLOG Insulin Flexpen SUBQ SCH ×6 (06:16→16:52)
[2016-06-06] MEDS: Morphine Sulfate 2mg/ml Inj IVP PRN ×2 (06:21→16:48)
[2016-06-06 09:00] VITALS: BP 130/74
[2016-06-06] MEDS ORDERED: Allopurinol 100mg Tab ORAL SCH (09:00)
[2016-06-06] MEDS ORDERED: Heparin 5000 units/ml inj SUBQ SCH (09:00)
[2016-06-06] MEDS ORDERED: Benazepril 10mg tab ORAL SCH (09:14)
[2016-06-06] MEDS: Levemir Flexpen SUBQ SCH ×2 (09:39→16:53)
[2016-06-06 12:10] VITALS: BP 139/85
[2016-06-06 16:00] VITALS: BP 130/83
[2016-06-06 16:47] VITALS: BP 130/83
--- NOTE | 2016-06-06 17:49 | Wound Care Consultation ---
Wound Assessment Wound Assessment #1: Wound Present on Admission: Yes New Wound: No Status Change of Wound: No Wound Location Body Site Modif: right Wound Location Body Site: toe - 1st Wound Type: pressure ulcer Imelda Test: Does not Imelda Pressure Ulcer Stage: deep tissue injury Wound Thickness: Full Thickness Wound Length: 0.5 Wound Width: 0.5 Wound Depth: utd Percent of Wound Purple/Maroon: 100 Wound Drainage Amount: None Wound Drainage Odor: None/Absent Tissue Surrounding Wound: Erythemic Wound General Appearance: Reddened Wound Assessment #2: Wound Number: #2 Wound Present on Admission: Yes New Wound: No Status Change of Wound: No Wound Location Body Site Modif: right Wound Location Body Site: metatarsal head - 1st Wound Type: pressure ulcer Imelda Test: Does not Imelda Pressure Ulcer Stage: IV/unstageable Wound Thickness: Full Thickness Wound Length: 2.0 Wound Width: 1.5 Wound Depth: utd Percent of Wound [place]ard[place]/Red: 50 Percent of Wound Bed Yellow/Wh: 50 Wound Drainage Description: Serosanguineous Wound Drainage Amount: Scant Wound Drainage Odor: None/Absent Tissue Surrounding Wound: Macerated Wound General Appearance: Reddened Wound Assessment #3: Wound Number: #3 Wound Present on Admission: Yes New Wound: No Status Change of Wound: No Wound Location Body Site Modif: mid Wound Location Body Site: sacral Wound Type: pressure ulcer Imelda Test: Does not Imelda Pressure Ulcer Stage: III Wound Thickness: Full Thickness Wound Length: 3.0 Wound Width: 1.5 Wound Depth: 0.3 Percent of Wound [place]ardin/Red: 100 Wound Drainage Description: Serosanguineous Wound Drainage Amount: Scant Wound Drainage Odor: None/Absent Tissue Surrounding Wound: Erythemic Wound General Appearance: Reddened Wound Assessment #4: Wound Number: #4 Wound Present on Admission: Yes New Wound: No Status Change of Wound: No Wound Location Body Site Modif: left Wound Location Body Site: ischial tuberosity Wound Type: pressure ulcer Imelda Test: Does not Imelda Pressure Ulcer Stage: III Wound Thickness: Full Thickness Wound Length: 2.0 Wound Width: 2.0 Wound Depth: 0.3 Percent of Wound [place]ard[place]/Red: 100 Wound Drainage Description: Serosanguineous Wound Drainage Amount: Scant Wound Drainage Odor: None/Absent Tissue Surrounding Wound: Erythemic Wound General Appearance: Reddened Wound Comment #1 Sacral stage III pressure ulcer #2 Left ischial tuberosity stage III pressure ulcer #3 Right 1st toe DTI pressure ulcer #4 Right 1st metatarsal head stage IV/unstageable pressure ulcer Recommendation -Sacral area, left ischial and right 1st metatarsal head pressure ulcers Cleanse with saline pat dry apply Triad cream cover with bordered gauze daily and PRN soiled/dislodged -Turn and reposition -Keep clean and dry -Optimize nutrition -Offload both heels -Low air loss overlay mattress -Assess and f/u accordingly for any changes KERRI MUNGUIA RN Jun 06, 2016 17:49
--- NOTE | 2016-06-06 17:57 | History and Physical ---
History of Present Illness General Date patient seen: Jun 06, 2016 Reason for Hospitalization: General Complaint Present Illness HPI 61-year-old male with a history diabetes, hypertension and chronic any tract infection presented to ER with CC of high blood sugar and that he fell and cannot walk. There was no trauma. Denies any fever or chills. Denies any nausea vomiting. He uses a cane because of his diabetic neuropathy and ulcer. Denies any chest pain. He is admitted for sudden onset of weakness and inability to walk. Allergies: Coded Allergies: No Known Allergies (Unverified , 12/31/11) Medication History Scheduled Allopurinol* (Allopurinol*), 100 MG ORAL DAILY, (Reported) Benazepril Hcl* (Benazepril Hcl*), 10 MG ORAL DAILY, (Reported) Clonidine Hcl* (Catapres*), 0.1 MG ORAL EVERY 6 HOURS, (Reported) Glipizide* (Glipizide*), 10 MG ORAL DAILY, (Reported) Heparin Sod (Porcine) (Heparin Sodium*), 5,000 UNITS SUBQ EVERY 12 HOURS, ( Reported) Insulin Aspart (Novolog Flexpen), SQ AC+HS, (Reported) Insulin Aspart (Novolog Flexpen), 10 UNITS SQ TIAC, (Reported) Meropenem (Merrem), 1 GM IV Q8HR, (Reported) Metformin Hcl* (Metformin Hcl*), 850 MG ORAL DAILY, (Reported) Pantoprazole* (Pantoprazole*), 40 MG ORAL DAILY, (Reported) Polyethylene Glycol 3350* (Miralax*), 17 GM ORAL DAILY, (Reported) Sitagliptin* (Januvia*), 100 MG ORAL DAILY, (Reported) Tamsulosin Hcl (Tamsulosin Hcl*), 0.4 MG ORAL BEDTIME, (Reported) Scheduled PRN Al Hydroxide/mg Hydroxide (Mag-Al Plus Suspension), 30 ML ORAL Q6HR PRN for Abdominal cramps, (Reported) Hydrocodone Bit/Acetaminophen 5-325* (Devon 5-325*), 1 TAB ORAL Q6H PRN for For Pain, (Reported) Hydrocortisone/Aloe Vera 1%* (Hydrocortisone-Aloe 1% Cream*), 0.5 APPLIC TOPIC Q6H PRN for Itching, (Reported) Nitroglycerin (Nitroglycerin), 0.4 MG SL [id number] PRN for chest pain, (Reported) Ondansetron (Zofran), 4 MG ORAL Q6H PRN for Nausea & Vomiting, (Reported) Temazepam* (Restoril*), 15 MG ORAL BEDTIME PRN for Insomnia, (Reported) Miscellaneous Medications Insulin Lispro (Humalog), 0 SUBQ, (Reported) Insulin Regular, Human (Humulin R), 600 MCG SUBQ, (Reported) Patient History Healthcare decision maker pt laert Resuscitation status Advanced Directive on File Past Medical/Surgical History Past Medical/Surgical History: (1) Opioid dependence (2) Hypoalbuminemia (3) BPH (benign prostatic hypertrophy) Review of Systems All Other Systems: negative except mentioned in HPI Physical Exam General Appearance: WD/WN Lines, tubes and drains: peripheral, central line Neck: non-tender, normal alignment Respiratory/Chest: chest wall non-tender, lungs clear Cardiovascular/Chest: normal peripheral pulses, normal rate Genitourinary/Rectal: normal genital exam, normal rectal exam Last 24 Hour Vital Signs Date Time Temp Pulse Resp B/P Pulse Ox O2 Delivery O2 Flow Rate FiO2 06/06/16 17:18 97.9 06/06/16 16:47 130/83 06/06/16 16:00 97.5 68 16 130/83 96 Room Air 06/06/16 12:10 97.9 76 19 139/85 99 Room Air 06/06/16 11:37 130/74 06/06/16 09:00 97.3 75 18 130/74 96 Room Air 06/06/16 06:00 111/70 06/06/16 04:10 97.7 71 18 143/71 97 Room Air 06/06/16 03:41 98.1 81 21 147/74 100 Room Air 06/06/16 03:35 98.1 81 21 147/74 100 Room Air 06/06/16 00:38 98.1 110 21 128/86 100 Room Air Intake and Output 06/05/16 06/06/16 19:00 07:00 Output Total 450 ml Balance -450 ml Output Urine Total 450 ml # Voids 1 Laboratory Tests Test 06/06/16 01:13 06/06/16 02:00 White Blood Count 10.4 K/UL (4.8-10.8) Red Blood Count 4.56 M/UL (4.70-6.10) L Hemoglobin 11.6 G/DL (14.2-18.0) L Hematocrit 36.7 % (42.0-52.0) L Mean Corpuscular Volume 81 FL (80-99) Mean Corpuscular Hemoglobin 25.5 PG (27.0-31.0) L Mean Corpuscular Hemoglobin Concent 31.7 G/DL (32.0-36.0) L Red Cell Distribution Width 16.8 % (11.6-14.8) H Platelet Count 213 K/UL (150-450) Mean Platelet Volume 7.5 FL (6.5-10.1) Neutrophils (%) (Auto) 70.2 % (45.0-75.0) Lymphocytes (%) (Auto) 21.0 % (20.0-45.0) Monocytes (%) (Auto) 6.3 % (1.0-10.0) Eosinophils (%) (Auto) 1.9 % (0.0-3.0) Basophils (%) (Auto) 0.7 % (0.0-2.0) Sodium Level 134 mEQ/L (135-145) L Potassium Level 4.2 mEQ/L (3.4-4.9) Chloride Level 93 mEQ/L (98-107) L Carbon Dioxide Level 26 mEQ/L (20-30) Anion Gap 15 (5-15) Blood Urea Nitrogen 21 mg/dL (7-23) Creatinine 1.0 mg/dL (0.7-1.2) Estimat Glomerular Filtration Rate > 60 mL/min (>60) Glucose Level 99 mg/dL (74-106) Calcium Level 9.0 mg/dL (8.6-10.2) Urine Color Yellow Urine Appearance Clear Urine pH 6.5 (4.5-8.0) Urine Specific [place]ber[place] 1.015 (1.005-1.035) Urine Protein 2+ (NEGATIVE) H Urine Glucose (UA) 2+ (NEGATIVE) H Urine Ketones Negative (NEGATIVE) Urine Occult Blood Negative (NEGATIVE) Urine Nitrite Negative (NEGATIVE) Urine Bilirubin Negative (NEGATIVE) Urine Urobilinogen 4 MG/DL (0.0-1.0) H Urine Leukocyte Esterase 1+ (NEGATIVE) H Urine RBC 0-2 /HPF (0 - 0) H Urine WBC 10-15 /HPF (0 - 0) H Urine Squamous Epithelial Cells Few /LPF (NONE/OCC) Urine Bacteria None /HPF (NONE) Height (Feet): 6 Height (Inches): 1.00 Weight (Pounds): 170 Medications Current Medications Medications (Trade) Dose Ordered Sig/Gabriel Route PRN Reason Start Time Stop Time Status Last Admin Dose Admin Acetaminophen (Tylenol) 650 mg Q4H PRN ORAL fever 06/06/16 04:45 07/06/16 04:44 Al Hydroxide/Mg Hydroxide (Mylanta II) 30 ml Q6H PRN ORAL dyspepsia 06/06/16 04:45 07/06/16 04:44 Albuterol/ Ipratropium (DuoNeb 0.5-3(2.5)mg/3ml) 3 ml EVERY 4 HOURS PRN HHN Shortness of Breath 06/06/16 04:45 06/11/16 04:44 Allopurinol (Zyloprim) 100 mg DAILY ORAL 06/06/16 09:00 07/06/16 08:59 06/06/16 09:33 Benazepril HCl (Lotensin) 10 mg DAILY ORAL 06/06/16 09:14 07/06/16 08:59 Clonidine HCl (Catapres) 0.1 mg EVERY 4 HOURS PRN ORAL sbp more than 160 06/06/16 04:45 07/06/16 04:44 Clonidine HCl (Catapres) 0.1 mg EVERY 6 HOURS ORAL 06/06/16 06:00 07/06/16 05:59 06/06/16 16:47 Dextrose (Dextrose 50%) STAT PRN IV Hypoglycemia 06/06/16 04:45 07/06/16 04:44 Dextrose (Dextrose 50%) STAT PRN IV Hypoglycemia 06/06/16 06:30 07/06/16 06:29 Heparin Sodium (Porcine) (Heparin 5000 units/ml) 5,000 units EVERY 12 HOURS SUBQ 06/06/16 09:00 07/06/16 08:59 Insulin Aspart (NovoLOG) BEFORE MEALS AND HS SUBQ 06/06/16 06:30 07/06/16 06:29 06/06/16 16:49 Insulin Aspart (NovoLOG) 8 units NOVOTIAC SUBQ 06/06/16 06:30 07/06/16 06:29 06/06/16 16:52 Insulin Detemir (Levemir) 15 units BID SUBQ 06/06/16 09:00 07/06/16 08:59 06/06/16 16:53 Ketorolac Tromethamine (Toradol 30mg) 30 mg EVERY 6 HOURS PRN IV moderate pain 4-6 06/06/16 04:45 06/11/16 04:44 Morphine Sulfate (Morphine Sulfate) 2 mg EVERY 4 HOURS PRN IVP severe pain 7-10 06/06/16 04:45 06/13/16 04:44 06/06/16 16:48 Nitroglycerin (Ntg) 0.4 mg Q5M X 3 DOSES PRN SL Prn Chest Pain 06/06/16 04:45 07/06/16 04:44 Ondansetron HCl (Zofran) 4 mg Q6H PRN IVP Nausea & Vomiting 06/06/16 04:45 07/06/16 04:44 Polyethylene Glycol (Miralax) 17 gm HSPRN PRN ORAL Constipation 06/06/16 04:45 07/06/16 04:44 Tamsulosin HCl (Flomax) 0.4 mg BEDTIME ORAL 06/06/16 21:00 07/06/16 20:59 Temazepam (Restoril) 15 mg HSPRN PRN ORAL Insomnia 06/06/16 04:45 06/13/16 04:44 Assessment/Plan Problem List: (1) Recurrent falls ICD Codes: R29.6 - Repeated falls SNOMED: 524343429 (2) Diabetic neuropathy ICD Codes: E11.40 - Type 2 diabetes mellitus with diabetic neuropathy, unspecified SNOMED: 28509508, 734604115, [id number] Qualifiers: Qualified Codes: E10.49 - Type 1 diabetes mellitus with other diabetic neurological complication (3) Hepatitis C ICD Codes: B19.20 - Unspecified viral hepatitis C without hepatic coma SNOMED: 59168433 (4) Diabetes mellitus type 2 (5) Hyperglycemia due to type 2 diabetes mellitus ICD Codes: E11.65 - Type 2 diabetes mellitus with hyperglycemia SNOMED: 26291746 Assessment/Plan neuro evaluation sliding scale pt/ot ok to transfer to contracted facility [facility] Jun 06, 2016 17:57
[2016-06-06] MEDS ORDERED: Tamsulosin 0.4mg cap ORAL SCH (21:00)
--- NOTE | 2016-06-06 21:38 | Consultation ---
DATE OF CONSULTATION: 06/06/2016 ENDOCRINOLOGY CONSULTATION CONSULTING PHYSICIAN: Elmer Melo M.D. REFERRING PHYSICIAN: Keisha Cerna M.D. REASON FOR CONSULTATION: Diabetes management. HISTORY OF PRESENT ILLNESS: The patient is a 61-year-old male known to me from his previous admission to [facility] as well as his most recent admission to [facility] when he came with a blood glucose out of control and he left against medical advice twice from [facility]. The patient presented to the emergency department two days in a row complaining of elevated glucose and he has no longer a chronic Dorsey. He had a recent TURP procedure at [facility] and the Dorsey was removed. Endocrinology was consulted in order to assist in the management of diabetes. PAST MEDICAL HISTORY: Diabetes, hypertension, and BPH. PAST SURGICAL HISTORY: TURP. MEDICATIONS: Reviewed and reconciled. FAMILY HISTORY: Diabetes. SOCIAL HISTORY: No smoking, alcohol, or drug use. Questionable being homeless. REVIEW OF SYSTEMS: As per history of present illness. PHYSICAL EXAMINATION: VITAL SIGNS: Temperature 97.7 degrees, heart rate 71, respiratory rate 18, and blood pressure 147/71. HEENT: Pupils are equal and reactive to light. Sclerae are anicteric. NECK: No JVD. LUNGS: Clear. HEART: Regular. ABDOMEN: Positive bowel sounds. Soft. EXTREMITIES: Positive for edema. LABORATORY DATA: WBC 10, hemoglobin 11.6, hematocrit 36.7, and platelets of 213,000. Sodium 134, potassium 4.2, chloride 93, bicarbonate 26, BUN 21, and creatinine 1.0. DIAGNOSES: 1. Diabetes out of control. 2. Benign prostatic hypertrophy. 3. Noncompliance with medication. PLAN: 1. Levemir 15 units b.i.d. 2. NovoLog 8 units before each meal. 3. NovoLog sliding scale. 4. Further adjustment according to the blood glucose values. Thank you, Dr. Cerna, for the courtesy of this consultation. Elmer Melo M.D. DR: CAM/ JOB#: [id number] CC:
--- NOTE | 2016-06-07 13:23 | Discharge Summary ---
Discharge Summary Hospital Course Date of Admission Jun 06, 2016 at 02:18 Date of Discharge Jun 06, 2016 at 20:30 Admitting Diagnosis FAILURE TO THRIVE YAMILA Caraballo is a 61 year old male who was admitted on Jun 06, 2016 at 02:18 for Failure To Thrive Hospital Course dc summary # [id number] Discharge Medications Continued Medications: Al Hydroxide/mg Hydroxide (Mag-Al Plus Suspension) 30 Ml Oral.susp 30 ML ORAL Q6HR PRN for Abdominal cramps, ML Allopurinol* (Allopurinol*) 100 Mg Tablet 100 MG ORAL DAILY, TAB Benazepril Hcl* (Benazepril Hcl*) 40 Mg Tablet 10 MG ORAL DAILY, TAB Clonidine Hcl* (Catapres*) 0.1 Mg Tablet 0.1 MG ORAL EVERY 6 HOURS, TAB Glipizide* (Glipizide*) 5 Mg Tablet 10 MG ORAL DAILY, TAB Heparin Sod (Porcine) (Heparin Sodium*) 5 000/1 Ml Vial 5000 UNITS SUBQ EVERY 12 HOURS, VIAL Insulin Aspart (Novolog Flexpen) 100 Unit/1 Ml Insuln.pen SQ AC+HS Insulin Regular, Human (Humulin R) 100 Unit/1 Ml Vial 600 MCG SUBQ, VIAL Metformin Hcl* (Metformin Hcl*) 850 Mg Tablet 850 MG ORAL DAILY, TAB Nitroglycerin (Nitroglycerin) 0.4 Mg Tab.subl 0.4 MG SL [id number] PRN for chest pain, TAB Ondansetron (Zofran) 4 Mg Tab 4 MG ORAL Q6H PRN for Nausea & Vomiting, TAB Pantoprazole* (Pantoprazole*) 40 Mg Tablet.dr 40 MG ORAL DAILY, TAB Polyethylene Glycol 3350* (Miralax*) 17 Gm Powd.pack 17 GM ORAL DAILY, PACKET Sitagliptin* (Januvia*) 25 Mg Tablet 100 MG ORAL DAILY, TAB Tamsulosin Hcl (Tamsulosin Hcl*) 0.4 Mg Cap.er.24h 0.4 MG ORAL BEDTIME, CAP Temazepam* (Restoril*) 15 Mg Capsule 15 MG ORAL BEDTIME PRN for Insomnia, CAP Discharge Condition Upon Discharge: stable Discharge Disposition Patient was discharged to Transfer to [facility] ( per insurance contract) Discharge Diagnoses: Discharge Instructions Discharge Instructions Special Instructions I have been assigned to complete a D/C Summary on this account. I was not involved in the patient management Jose (Vanchtein),Jina VILLALOBOS Jun 07, 2016 13:23
--- NOTE | 2016-06-08 04:39 | Discharge Summary 2 SIG ---
DATE OF ADMISSION: 06/06/2016 DATE OF DISCHARGE: 06/06/2016 REASON FOR ADMISSION: 61 y/old alaina presented with complaint of inability to ambulate. Apparently, the patient has a history of diabetes, hypertension, and chronic ulcer. He is homeless and he used to go to different ERs. He was treated for diabetes the day before in the emergency department. Prior to his current presentation in the ED, he was in the fast food restaurant and claimed that he fell and was unable to walk. There was no trauma. No injury. No fevers. No chills. No nausea. No vomiting. The patient was using a cane because of diabetic neuropathy and ulcer. No chest pain. No shortness of breath. [place] [facility] [place] was afebrile. Pulse oximetry was stable on room air. No leukocytosis. Mild anemia, 11.6 hemoglobin, hematocrit 36.7. Stable electrolytes. Urinalysis revealed +2 protein, +2 glucose, +1 leukocyte esterase. few bacteria. The patient was admitted due to inability to care for himself, being homeless and likely need for long-term placement. ADMITTING DIAGNOSES: 1. Recurrent falls. 2. Failure to thrive. 3. Diabetes. 4. Diabetic neuropathy. 5. Diabetic foot ulcer. HOSPITAL STAY: The patient was admitted to the hospital. Neurology and endocrinology evaluations were requested. Packing Tractor Machine Operator had already seen the patient and placed him on regimen of long acting insulin and short acting premeal insulin as well as insulin as per sliding scale as needed. Patient was encouraged compliance with regimen. Hemoglobin A1c pending. Blood pressure was managed with NOHEMY inhibitor and clonidine as needed, stable. Supplemental oxygen and pulmonary toilet were provided as needed. Physical and occupational therapy were ordered. Fall precautions were maintained. Wound care nurse had seen the patient and recommended wound care for sacral stage III and left ischial tuberosity stage III , present on admission, as well as diabetic ulcer treatment. Bowel regimen was instituted. DVT and GI prophylaxis were provided. Anemia workup was initiated. The patient required transfer to insurance contracted facility, [facility], which was arranged the same day and the patient left. DISCHARGE DIAGNOSES: 1. Recurrent falls. 2. Failure to thrive. 3. Diabetic neuropathy. 4. Anemia. 5. Diabetes mellitus, out of control. 6. Diabetic foot ulcer. 7. Hepatitis C infection. 8. Hypertension. 9. Sacral stage III, present on admission. 10. Left ischial tuberosity decubitus stage III, present on admission. 11. Noncompliance. DISCHARGE MEDICATIONS: See medication reconciliation list. DISCHARGE INSTRUCTIONS: The patient was transferred to [facility] facility - [facility] as per insurance . Follow up with medical doctor at the hospital. Keisha Cerna M.D. I have been assigned to dictate discharge summary on this account and I was not involved in the patient's management. Jina MannNorth Central Bronx Hospitalfatuma N.PJeff DR: MUNIR JOB#: [id number] CC: TONY
== END 2016-06-06 20:30 | disposition short-term general hospital (02) | DRG 420 ==
LOC: EDBD 00:38 → EMR 00:52 → EDBEDREQ 02:13 → 4W 02:18 → EDBEDREQ 03:22
DX: E10.65 Type 1 diabetes mellitus with hyperglycemia (principal); L89.153 Pressure ulcer of sacral region, stage 3; E10.621 Type 1 diabetes mellitus with foot ulcer; E11.40 Type 2 diabetes mellitus with diabetic neuropathy, unspecified; L89.323 Pressure ulcer of left buttock, stage 3; R62.7 Adult failure to thrive; Z91.81 History of falling; D64.9 Anemia, unspecified; Z79.4 Long term (current) use of insulin; B19.20 Unspecified viral hepatitis C without hepatic coma; I10 Essential (primary) hypertension; Z91.19 Patient's noncompliance with other medical treatment and regimen; Z59.0 Homelessness
CPT/HCPCS: 36415; 80048; 81001; 82962; 85025; 87086; 87181; J1815; S5561

== ENCOUNTER 2017-09-18 18:30 | Emergency (ER) | payer OTHER ==
[~2017-09-18] VITALS: Ht 177.8 cm; Wt 68.0 kg
[~2017-09-18 18:30] MED LIST changes: +ACETAMINOPHEN325 M1 ORAL; +AMLODIPINE BESY10 MG ORAL; +COLACE100 MG ORAL; +HUMALOG100 UNIT/1 SUBQ; +HYDROCORTISONE-30 GM TOPIC; +JANUVIA25 MG ORAL; +METFORMIN HCL850 M1 ORAL; +SYMLIN600 MCG/1 SUBQ
[2017-09-18] MEDS ORDERED: DOCUSATE SODIU250 MG ORAL (18:55)
[2017-09-18] MEDS ORDERED: HUMALOG100 UNIT/4 SUBQ (18:59)
[2017-09-18] MEDS ORDERED: HUMALOG 75/255 UNIT1 SUBQ ×2 (18:59→19:11)
[2017-09-18 19:00] VITALS: BP 137/82
[2017-09-18] MEDS ORDERED: LANTUS SOL100 UNIT/1 SUBQ ×2 (19:03→19:08)
[2017-09-18] MEDS ORDERED: LACTULOSE10 GM/153 PO (19:03)
[2017-09-18] MEDS ORDERED: ZOFRAN4 M3 ORAL (19:08)
[2017-09-18] MEDS ORDERED: MULTIVITAMINS1 EAC8 ORAL (19:08)
[2017-09-18] MEDS ORDERED: TRAMADOL HCL50 MG ORAL (19:08)
[2017-09-18] MEDS ORDERED: OMEPRAZOLE20 M3 ORAL (19:08)
[2017-09-18] MEDS ORDERED: MIRALAX17 G2 ORAL (19:08)
[2017-09-18] MEDS ORDERED: METHADONE HCL10 MG PO (19:08)
[2017-09-18] MEDS ORDERED: METFORMIN HCL500 M1 ORAL (19:08)
[2017-09-18] MEDS ORDERED: VITAMIN C500 M1 ORAL (19:08)
[2017-09-18] MEDS ORDERED: NORCO 5-325 TA1 EACH ORAL (19:08)
--- NOTE | 2017-09-18 20:17 | Emergency Room Report ---
History of Present Illness General Chief Complaint: Edema Source: Patient, Medical Record, EMS Present Illness HPI Patient sent to the emergency room for extensive edema Patient himself reports that he has had continued swelling to the lower abdomen and the lower extremity over the past several weeks Denies any chest pain he does feel somewhat short of breath when laying flat Denies any vomiting or diarrhea patient reports that he was also constipated for several days however did have bowel movement yesterday Denies any fevers or chills Allergies: Coded Allergies: No Known Allergies (Unverified , 12/31/11) Patient History Past Medical History: see triage record Pertinent Family History: none Reviewed Nursing Documentation: PMH: Agreed; PSxH: Agreed Nursing Documentation-PMH Hx COPD: Yes Hx Diabetes: Yes Hx Cancer: No Hx Gastrointestinal Problems: Yes - GERD, UTI, BPH Hx Neurological Problems: Yes Hx Numbness: Yes Hx Weakness: Yes Review of Systems All Other Systems: negative except mentioned in HPI Physical Exam Vital Signs Date Time Temp Pulse Resp B/P (MAP) Pulse Ox O2 Delivery O2 Flow Rate FiO2 09/18/17 18:22 97.7 72 18 137/82 96 Room Air 97.7 Sp02 EP Interpretation: reviewed, normal General Appearance: no apparent distress Head: normocephalic, atraumatic Eyes: bilateral eye PERRL, bilateral eye EOMI ENT: hearing grossly normal, normal pharynx, TMs + canals normal, uvula midline Neck: full range of motion, supple, no meningismus, no bony tend Respiratory: no respiratory distress, no retraction, no accessory muscle use, crackles - Both lower lobes Cardiovascular #1: normal peripheral pulses, regular rate, rhythm, no JVD, no murmur Gastrointestinal: no organomegaly, non-distended, no guarding, no pulsatile mass, no rebound, other Genitourinary: no CVA tenderness Musculoskeletal: other Neurologic: oriented x3, responsive, sensory intact Psychiatric: mood/affect normal Skin: other Lymphatic: normal inspection, no adenopathy Procedures Central Line Central Line : Consent: Verbal Central Line Lumen: triple Maximal Sterile Barrier Tech: yes cap, yes mask, yes sterile gown, yes sterile gloves, yes large sterile sheet, yes hand hygiene, yes chlorhexidine prep Central Line Postion: femoral (R) Anesthesia: Lidocaine cc's of anesthesia: 5 Complications: none Central Line Post Position: sutured Attempts: One Patient Tolerated: Well Complications: None Medical Decision Making Diagnostic Impression: Primary Impression: Edema Additional Impressions: SUSPICION OF CHARCOT FOOT AND TOE DEFORMITY Pleural effusion ER Course Given the patient's history exam and presentation imaging studies along with essential blood work were initiated Patient's troponin level is borderline CT imaging does show bilateral effusions patient has cirrhosis X-ray confirms similar findings Patient was provided with diuretics required central line placement for IV access At this time is accepted for further transfer and inpatient care Labs Test 09/18/17 20:20 White Blood Count 9.7 K/UL (4.8-10.8) Red Blood Count 3.62 M/UL (4.70-6.10) Hemoglobin 10.7 G/DL (14.2-18.0) Hematocrit 32.5 % (42.0-52.0) Mean Corpuscular Volume 90 FL (80-99) Mean Corpuscular Hemoglobin 29.6 PG (27.0-31.0) Mean Corpuscular Hemoglobin Concent 32.9 G/DL (32.0-36.0) Red Cell Distribution Width 14.3 % (11.6-14.8) Platelet Count 122 K/UL (150-450) Mean Platelet Volume 7.5 FL (6.5-10.1) Neutrophils (%) (Auto) 48.6 % (45.0-75.0) Lymphocytes (%) (Auto) 40.2 % (20.0-45.0) Monocytes (%) (Auto) 8.0 % (1.0-10.0) Eosinophils (%) (Auto) 1.7 % (0.0-3.0) Basophils (%) (Auto) 1.6 % (0.0-2.0) Sodium Level 135 MMOL/L (136-145) Potassium Level 4.3 MMOL/L (3.5-5.1) Chloride Level 105 MMOL/L (98-107) Carbon Dioxide Level 27 MMOL/L (21-32) Anion Gap 3 mmol/L (5-15) Blood Urea Nitrogen 18 mg/dL (7-18) Creatinine 1.0 MG/DL (0.55-1.30) Estimat Glomerular Filtration Rate > 60 mL/min (>60) Glucose Level 114 MG/DL (74-106) Calcium Level 8.3 MG/DL (8.5-10.1) Total Bilirubin 1.3 MG/DL (0.2-1.0) Direct Bilirubin 0.9 MG/DL (0.0-0.3) Aspartate Amino Transf (AST/SGOT) 74 U/L (15-37) Alanine Aminotransferase (ALT/SGPT) 40 U/L (12-78) Alkaline Phosphatase 191 U/L (46-116) Total Creatine Kinase 59 U/L (26-308) Creatine Kinase MB < 0.5 NG/ML (0.0-3.6) Creatine Kinase MB Relative Index 0.8 Troponin I 0.074 ng/mL (0.000-0.056) Pro-B-Type Natriuretic Peptide 198 pg/mL (0-125) Total Protein 10.0 G/DL (6.4-8.2) Albumin 1.2 G/DL (3.4-5.0) Globulin 8.8 g/dL Albumin/Globulin Ratio 0.1 (1.0-2.7) Rhythm Strip Diag. Results EP Interpretation: yes Rate: 77 Rhythm: NSR, no PVC's, no ectopy Chest X-Ray Diagnostic Results Chest X-Ray Diagnostic Results : Chest X-Ray Ordered: Yes # of Views/Limited/Complete: 1 View Indication: Chest Pain EP Interpretation: Yes Interpretation: no pneumothorax, other - Bilateral effusion, cardiomegaly Impression: Other - Bilateral effusions Electronically Signed by: Thee Bonds, CT/MRI/US Diagnostic Results CT/MRI/US Diagnostic Results : Impression CT abdomen pelvisFindings: Moderate right pleural effusion. The heart is not enlarged. Trace left pleural effusion. Bibasilar atelectasis. Cirrhotic liver. Cholecystectomy. Spleen, pancreas, and adrenals are grosslyunremarkable. No stones or hydronephrosis. CBD is severelydilated. No calcified stones are seen. Intrahepatic ductal dilatation is also noted. Branching hyperdensities in the right upper quadrant. No bowel obstruction or definite wall thickening. No acute appendicitis. Large ascites. Impression:Cirrhotic liver with pleural effusion and ascites as described. Biliarydilatation without calcified stones. Hyperdense right upper quadrant vessels representing thrombosis in the setting of portal hypertension. Last Vital Signs Date Time Temp Pulse Resp B/P (MAP) Pulse Ox O2 Delivery O2 Flow Rate FiO2 6/18/18 18:22 97.7 72 18 137/82 96 Room Air 97.7 Status: improved Disposition: XFER SHT-TRM HOSP Condition: Improved Referrals: NON PHYSICIAN (PCP) Thee Bonds DO Sep 18, 2017 20:17
[2017-09-18 20:43] LABS: ANION GAP 3 mmol/L (5-15); BASOPHILS % (AUTO) 1.6 % (0.0-2.0); BLOOD UREA NITROGEN 18 mg/dL (7-18); CALCIUM 8.3 MG/DL (8.5-10.1); CARBON DIOXIDE 27 MMOL/L (21-32); CHLORIDE 105 MMOL/L (98-107); EOSINOPHILS % (AUTO) 1.7 % (0.0-3.0); HEMATOCRIT 32.5 % (42.0-52.0); HEMOGLOBIN 10.7 G/DL (14.2-18.0); LYMPHOCYTES % (AUTO) 40.2 % (20.0-45.0); MEAN CORPUSCULAR VOLUME 90 FL (80-99); NEUTROPHILS % (AUTO) 48.6 % (45.0-75.0); PLATELET COUNT 122 K/UL (150-450); POTASSIUM 4.3 MMOL/L (3.5-5.1); RED BLOOD COUNT 3.62 M/UL (4.70-6.10); RED CELL DISTRIBUTION WIDTH 14.3 % (11.6-14.8); SODIUM 135 MMOL/L (136-145); WHITE BLOOD COUNT 9.7 K/UL (4.8-10.8)
[2017-09-18 20:56] LABS: ALANINE AMINOTRANSFERASE 40 U/L (12-78); ALBUMIN 1.2 G/DL (3.4-5.0); ALBUMIN/GLOBULIN RATIO 0.1 (1.0-2.7); ALKALINE PHOSPHATASE 191 U/L (46-116); ASPARTATE AMINO TRANSFERASE 74 U/L (15-37); BILIRUBIN,TOTAL 1.3 MG/DL (0.2-1.0); CKMB < 0.5 NG/ML (0.0-3.6); CREATINE KINASE 59 U/L (26-308)
[2017-09-18 20:58] LABS: BILIRUBIN,DIRECT 0.9 MG/DL (0.0-0.3)
[2017-09-18 22:30] VITALS: BP 110/71
[2017-09-18 23:46] VITALS: BP 106/69
[2017-09-19 00:01] VITALS: BP 106/69
--- NOTE | 2017-09-19 12:17 | Diagnostic Imaging Report ---
Indication: Chest pain Technique: One view of the chest Comparison: none Findings: Hazy opacities at the right lung base likely reflects pleural fluid demonstrated on subsequent CT scan. There is atelectasis in the left infrahilar region. There is evidence of fibronodular scarring in both lung apices. The lungs are otherwise clear. Heart size is normal. Left pleural space is clear Impression: Right basilar haziness, subsequently demonstrated to represent pleural fluid Other findings as noted
--- NOTE | 2017-09-19 12:18 | Diagnostic Imaging Report ---
Indication: Abdominal pain Technique: Spiral acquisitions obtained through the abdomen and pelvis. No oral contrast utilized, per emergency room physician request No IV contrast utilized, per referring physician request.. Multiplanar reconstructions were generated. Total dose length product 1078.69 mGycm. CTDIvol(s) 17.93 mGy. Dose reduction achieved using automated exposure control Comparison: No comparison CT scans. Comparison is made to MRI abdomen dated 09/28/2015 Findings: The appendix is normal. No evidence of diverticulosis or diverticulitis. Small bowel loops are diffusely mildly prominent, gas and fluid-filled. The ascending and proximal transverse colon are equivocally somewhat thick walled. No evidence of free intraperitoneal air. There is a moderate amount of ascites fluid present. The distal esophagus demonstrates a small sliding-type hiatal hernia. Stomach and duodenum are unremarkable. Patient is status post cholecystectomy. The liver demonstrates irregular nodular surface texture, consistent with cirrhosis. The extrahepatic bile ducts are markedly dilated, common bile duct measuring up to 2.2 cm in diameter. No definite downstream obstructive lesion is demonstrated, however. There is also central intrahepatic biliary ductal dilatation. No definite focal hepatic abnormality other than a few small calcifications. Ill-defined areas of increased attenuation in the region of the russ hepatis are noted, of uncertain significance. The pancreas is grossly unremarkable. The spleen is mildly enlarged, measuring 14.2 cm long axis dimension. The adrenals and kidneys are grossly unremarkable, except that the left kidney demonstrates abnormal axis rotation.. No retroperitoneal or mesenteric mass or adenopathy. No pelvic mass or adenopathy. The bladder is mildly distended. The prostate is enlarged, measuring 4.4 x 5.2 cm. There is questionably a TURP defect. There is a right groin central venous catheter. There is diffuse edema of the subcutaneous fat. There is a moderate size right pleural effusion. Compressive atelectatic changes are seen at both lung bases, particularly on the right. There is our deformities of the posterior right seventh and eighth ribs. Appearance of these is suggestive of possible prior surgery The biliary ductal dilatation was evident on the prior abdominal MRI. The ascites and splenomegaly and hepatic morphologic changes are new findings.. Impression: Diffusely mildly prominent gas and fluid-filled small bowel loops, could indicate mild enteritis or ileus Equivocal colon wall thickening, could indicate colitis if real Evidence of hepatic cirrhosis Ascites and splenomegaly, presumably related to the above Marked biliary ductal dilatation. Suspect baseline for this patient, related to age and postcholecystectomy state, as this was also evident on a prior MRI of 09/28/2015, although the degree of dilatation appears increased from the exam. No definite downstream obstructive lesion demonstrated. Correlation with liver function tests is recommended Unusual areas of hyperattenuation in the russ hepatis, location/etiology uncertain. Possibility of vascular thrombosis should be considered. Prostatomegaly. Possible prior TURP Right sided pleural effusion. Resultant compressive atelectatic changes Other manifestations of anasarca, with diffuse edema of the subcutaneous fat Other findings as noted, including posterior right seventh and eighth rib deformities, right groin central venous catheter, small sliding-type hiatal hernia, abnormal left renal rotation This agrees with the preliminary interpretation provided overnight by [facility] teleradiology service. The CT scanner at [facility] is accredited by the [employer] and the scans are performed using protocols designed to limit radiation exposure to as low as reasonably achievable to attain images of sufficient resolution adequate for diagnostic evaluation.
--- NOTE | 2017-09-20 07:11 | Cardiology Report ---
APPROVED REPORT EKG Measurement Heart [id number] Normal sinus rhythm Low voltage QRS Borderline ECG
== END 2017-09-19 00:01 | disposition short-term general hospital (02) ==
LOC: EDBD 18:30 → EDBEDREQ 18:39 → EMR 19:41
DX: R60.0 Localized edema (principal); J90 Pleural effusion, not elsewhere classified; E11.9 Type 2 diabetes mellitus without complications; J44.9 Chronic obstructive pulmonary disease, unspecified; K21.9 Gastro-esophageal reflux disease without esophagitis
CPT/HCPCS: 36415; 71045; 74176; 80053; 82248; 82550; 82553; 83880; 84484; 85025; 93005; 96374; 99285; J1940; Z7502